=== PATIENT | male | born 1935 | race Caucasian/White ===

== ENCOUNTER → 2016-08-02 | Day surgery (SDC) | payer BC ==
[2016-07-25 10:44] VITALS: Ht 162.6 cm; Wt 127.3 kg
[~2016-08-02] VITALS: Ht 162.6 cm; Wt 127.3 kg
[~2016-08-02] MED LIST: ABIR1TAB PO; ATOR-24 PO; DSWCR15 TOP; FLM4 PO; HYDR25TA4 PO; IOPAMIDOL INJ 61% 15 ML VIAL ONE; LIDOCAINE HCL 1% MPF 5 ML VIAL ONE; NIAC500T7 PO; OMEG12006 PO; SODIUM CHLORIDE 0.9% INJ 10 ML VIAL ONE; VENL150C56 PO
--- NOTE | 2016-08-02 13:35 | Discharge Instructions ---
Discharge Instructions Visit Reason for Visit: Lumbar Spinal Stenosis Discharge Discharge Diagnosis / Problem: stenosis with leg pain Discharge Goals Goal(s): Decrease discomfort, Improve function Anesthesia . Post Anesthesia Instructions: If you have had General Anesthesia or IV Sedation: * Do not drive today. * Resume driving when surgeon permits. * Do not make important decisions or sign legal documents today. * Call surgeon for: 1. Temperature elevations greater than 101 degrees F. 2. Uncontrollable pain. 3. Excessive bleeding. 4. Persistent nausea and vomiting. 5. Medication intolerance (nausea, vomiting or rash). * For nausea and vomiting use only clear liquids such as: tea, soda, bouillon until nausea subsides, then gradually increase diet as tolerated. * If you have any concerns or questions, call your surgeon's office. If physician is unavailable and it is an emergency, call 911 or go to the nearest emergency room. . Diet Recommendations Recommended Home Diet: resume previous diet Procedures Procedures Performed: Lumbar Epidural Steroid Injejection. Pending Studies Studies pending at discharge: no Medical Emergencies . Who to Call and When: Medical Emergencies: If at any time you feel your situation is an emergency, please call 911 immediately. . Non-Emergent Contact Non-Emergency issues call your: Specialist . . "Provider Documentation" section prepared by Franki Haines.
[2016-08-02 13:44] VITALS: BP 148/87; PULSE 92; TEMP 37.2; O2SAT 95
--- NOTE | 2016-08-02 13:47 | OPERATIVE REPORT ---
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 POSTOPERATIVE DIAGNOSIS: Same. PROCEDURE: Right paramedian L5-S1 intralaminar epidural steroid injection under fluoroscopic guidance. INDICATIONS FOR PROCEDURE: The patient is an 81-year-old white male who presents today for an epidural injection given a 5-year history of low back pain with neurogenic claudication, it has impacted his function and he presents today for improvement in both function and pain. PHYSICAL EXAMINATION: Pleasant male seated comfortably in no apparent distress. He has normal lower extremity strength and sensation. Negative seated straight leg raises, some chronic venous stasis changes in his legs in the lower extremities bilaterally. CONSENT: Verbal and written consent was obtained from the patient. Risks and benefits were reviewed. Risks include but are not limited to epidural abscess, epidural hematoma, allergic reaction and dural puncture. The patient wishes to proceed. DESCRIPTION OF PROCEDURE: The patient was taken back to the special procedures room of the [facility] where he was maintained in a prone position. Backside was cleansed with Betadine x3 and a dry sterile dressing was applied. Fluoroscope was used to identify the L5-S1 intralaminar space. Overlying skin on the right side was anesthetized with 4 mL of lidocaine 1% with a 25-gauge 1.5-inch needle. A 22-gauge Tuohy needle was then directed into the intralaminar space. It was advanced under lateral fluoroscopic guidance and loss of resistance was noted at a depth of 11 cm. Isovue-300 contrast 1 mL was injected in which demonstrated epidural uptake pattern with good spread caudally. He then underwent injection after negative aspiration of 40 mg of Depo-Medrol and 4 mL of preservative free sodium chloride. Injection was well tolerated and reproduced a familiar transient radicular sensation down the leg. DISPOSITION: 1. The patient is taken out into the discharge recovery area where he will be discharged home once discharge criteria have been met. 2. Follow up in the [facility] office in 2-4 weeks. I attest to the content of the Intraoperative Record and any orders documented therein. Any exceptio ns are noted below.
== END | disposition home or self-care (01) ==
LOC: X.SURG 12:34
PROVIDERS: ATTEND Physical Medicine & Rehabilitation
DX: M48.06 Spinal stenosis, lumbar region (principal); M19.90 Unspecified osteoarthritis, unspecified site; C61 Malignant neoplasm of prostate; E78.5 Hyperlipidemia, unspecified; F41.9 Anxiety disorder, unspecified; J44.9 Chronic obstructive pulmonary disease, unspecified; F32.9 Major depressive disorder, single episode, unspecified; K21.9 Gastro-esophageal reflux disease without esophagitis; I10 Essential (primary) hypertension; E55.9 Vitamin D deficiency, unspecified; Z96.659 Presence of unspecified artificial knee joint; Z98.890 Other specified postprocedural states

== ENCOUNTER → 2016-09-13 | Day surgery (SDC) | payer BC ==
[2016-09-03 10:26] VITALS: Ht 162.6 cm; Wt 127.3 kg
[~2016-09-13] VITALS: Ht 162.6 cm; Wt 127.3 kg
[~2016-09-13] MED LIST changes: -IOPAMIDOL INJ 61% 15 ML VIAL ONE; -LIDOCAINE HCL 1% MPF 5 ML VIAL ONE; -SODIUM CHLORIDE 0.9% INJ 10 ML VIAL ONE
== END | disposition home or self-care (01) ==
LOC: C.PAT 11:32 → EDSTATUS 15:00
PROVIDERS: ATTEND Physical Medicine & Rehabilitation

== ENCOUNTER 2017-08-09 13:37 | Inpatient (IN) | payer BC, OTHER ==
[~2017-08-09] VITALS: Ht 167.6 cm; Wt 114.6 kg
[~2017-08-09 13:37] MED LIST changes: -OMEG12006 PO
[2017-08-09] MEDS ORDERED: ACETAMINOPHEN 500 MG TAB PO STA (13:57)
[2017-08-09] MEDS ORDERED: SODIUM CHLORIDE 0.9% 1000ML 1,000 ML IV ONE (13:57)
--- NOTE | 2017-08-09 14:08 | EMERGENCY ROOM VISIT NOTE ---
History Report prepared by Fitz: Tisha Dueñas Under the Supervision of: Dr. Ted Zelaya D.O. First contact with patient: 13:43 Chief Complaint: FEVER Stated Complaint: FEVER, NAUSEA/VOMITING,HTN History of Present Illness The patient is a 82 year old male who presents to the Emergency Room with complaints of a persistent fever that began earlier today. The patient states a history of prostate cancer, noting he was being seen by his oncologist when they noticed a fever of 103 degrees Fahrenheit. The patient is currently not in chemotherapy, he notes he receives hormone therapy. He notes he has been vomiting fluids, noting he has been unable to eat in weeks. The patient states he has been coughing and nauseous, since last night. He notes he has been having diarrhea for a few weeks. He denies any urinary symptoms, chest pain, or leg swelling. The patient notes he was given one bag of fluid prior to arrival. He states he has cellulitis in his legs. Source of History: patient Onset: today Position: other (global) Quality: other (fever) Timing: other (persistent) Associated Symptoms: + cough, + nausea, + vomiting, + diarrhea, No chest pain, No urinary symptoms Review of Systems See HPI for pertinent positives & negatives. A total of 10 systems reviewed and were otherwise negative. 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 Social History Smoking Status: Never Smoker Alcohol Use: none Drug Use: none Marital Status: Current/Historical Medications Scheduled Abiraterone Acetate (Zytiga), 4 TAB PO QAM Atorvastatin (Lipitor), 40 MG PO QPM Hydrochlorothiazide (Hctz), 25 MG PO QAM Niacinamide (Niacin), 500 MG PO QAM Tamsulosin HCl (Tamsulosin HCl), 1 CAP PO DAILY Venlafaxine Hcl (Effexor Extended Rel), 150 MG PO QAM Miscellaneous Medications Acetaminophen (Tylenol), 325 MG PO Allergies Coded Allergies: Diphtheria Toxoid (Verified Allergy, Intermediate, SWELLING,BLISTERS, REDNESS,HIVES FROM ADACEL, 1/12/18) Pertussis Vaccine (Verified Allergy, Intermediate, SWELLING,HIVES,REDNESS, BLISTERS FROM ADACEL, 08/09/17) Tetanus Toxoid (Verified Allergy, Intermediate, SWELLING,BLISTERS,REDNESS, HIVES FROM ADACEL, 08/09/17) Physical Exam Vital Signs Date Time Temp Pulse Resp B/P (MAP) Pulse Ox O2 Delivery O2 Flow Rate FiO2 08/09/17 15:34 39.2 105 20 179/87 94 Room Air 08/09/17 14:16 95 Room Air 08/09/17 13:58 109 08/09/17 13:41 39.4 106 22 173/81 95 Room Air Physical Exam GENERAL: Patient is awake, alert, and in no acute distress. Patient is resting comfortably and showing no signs of anxiety EYES: The conjunctivae are clear. The pupils are round and reactive. EARS, NOSE, MOUTH AND THROAT: The nose is without any evidence of any deformity. Mucous membranes are moist tongue is midline NECK: The neck is nontender and supple. RESPIRATORY: Lung sounds diminished throughout, no tachypnea or conversational dyspnea. CARDIOVASCULAR: Regular rate and rhythm noted, systolic murmur appreciated. GASTROINTESTINAL: Abdomen is mildly distended but soft, no guarding or rigidity. PELVIS: The Pelvis is stable. No tenderness to palpation is noted. BACK: No midline tenderness or or step-off noted range of motion in flexion extension as well as rotation no signs of muscle spasm noted MUSCULOSKELETAL/EXTREMITIES: There is no evidence of gross deformity full range of motion is noted in the hips and shoulders SKIN: Stasis dermatitis noted bilaterally, pedal edema bilaterally. NEUROLOGIC: Patient is awake alert and oriented x3 strength is symmetric patellar reflexes are 2+ bilaterally Medical Decision & Procedures ER Provider Diagnostic Interpretation: Radiology results as stated below per my review and radiologist interpretation: ABD/PELVIS NO IV OR ORAL CONT CT DOSE: 1537.81 mGy.cm HISTORY: Nausea. Vomiting. vomiting, fever TECHNIQUE: Multiaxial CT images of the abdomen and pelvis were performed without contrast. A dose lowering technique was utilized adhering to the principles of ALARA. COMPARISON STUDY: 04/26/2016 FINDINGS: Interval development of by lateral basilar pleural effusions. Mild superimposed bibasilar dependent atelectasis. Several small gallstones. Configuration of liver spleen and pancreas are unremarkable. Left renal cyst unchanged. No evidence renal hydronephrosis. The adrenal glands are symmetric. Bowel pattern is considered nonobstructive throughout. No significant abdominal or pelvic adenopathy. Inguinal regions are unremarkable. Interval development of several mesenteric and perirectal nodes measuring up to 1.4 cm. No evidence for bowel obstruction collection or mass. Slight infiltrative change of the perirectal and presacral fascial planes unchanged in the prior study. Findings of sclerotic bony metastatic changes as discussed previously are stable. IMPRESSION: 1. Interval development of bibasilar pleural effusions with atelectatic and/or infiltrative change at the left and to a lesser extent right base. 2. Evaluation of the abdomen and pelvis is otherwise stable compared to the prior exam with one additional Node measuring 1.4 cm. 3. No evidence for abscess or collection. No bowel obstructive change. The above report was generated using voice recognition software. It may contain grammatical, syntax or spelling errors. Electronically signed by: Lex Hewitt M.D. 08/09/2017 3:15 PM Dictated Date/Time: 08/09/2017 3:10 PM CHEST ONE VIEW PORTABLE CLINICAL HISTORY: Sepsis FEVER, NAUSEA VOMITING. HYPERTENSION. COMPARISON STUDY: 10/09/2013 FINDINGS: The heart is enlarged. There is mild pulmonary vascular congestion. There is no lobar consolidation. There is a suboptimal inspiration with bronchovascular crowding at the lung bases. Small pleural effusions are suspected IMPRESSION: Cardiomegaly and mild pulmonary vascular congestion. Suspected small pleural effusions. Increased basal markings are likely hypoventilatory basis Electronically signed by: Lazarus Murry M.D. 08/09/2017 2:20 PM Dictated Date/Time: 08/09/2017 2:19 PM Laboratory Results Test 08/09/17 13:00 08/09/17 13:57 08/09/17 14:11 08/09/17 14:42 Erythrocyte Sedimentation Rate 26 mm/hr (0-14) Prothrombin Time 12.4 SECONDS (9.0-12.0) Prothromb Time International Ratio 1.2 (0.9-1.1) Activated Partial Thromboplast Time 29.7 SECONDS (21.0-31.0) Partial Thromboplastin Ratio 1.1 Phosphorus Level 1.9 mg/dl (2.5-4.9) Magnesium Level 1.9 mg/dl (1.8-2.4) Total Creatine Kinase 66 U/L (39-308) Creatine Kinase MB < 0.5 ng/ml (0.5-3.6) Troponin I 0.027 ng/ml (0-0.045) C-Reactive Protein 0.77 mg/dl (0-0.29) Pro-B-Type Natriuretic Peptide 3714 pg/ml (0-1800) Creatine Kinase MB Ratio (0-3.0) Influenza Type A Antigen Neg for Influ A (NEG) Influenza Type B Antigen Neg for Influ B (NEG) Bedside Lactic Acid Venous 1.31 mmol/L (0.90-1.70) Test 08/09/17 15:29 Urine Color YELLOW Urine Appearance CLEAR (CLEAR) Urine pH 8.0 (4.5-7.5) Urine Specific [place] 1.011 (1.000-1.030) Urine Protein NEG (NEG) Urine Glucose (UA) NEG (NEG) Urine Ketones NEG (NEG) Urine Occult Blood NEG (NEG) Urine Nitrite NEG (NEG) Urine Bilirubin NEG (NEG) Urine Urobilinogen NEG (NEG) Urine Leukocyte Esterase NEG (NEG) Urine WBC (Auto) 0 /hpf (0-5) Urine RBC (Auto) 0-4 /hpf (0-4) Urine Hyaline Casts (Auto) 0 /lpf (0-5) Urine Epithelial Cells (Auto) 0-5 /lpf (0-5) Urine Bacteria (Auto) NEG (NEG) Laboratory results per my review. Medications Administered Medications (Trade) Dose Ordered Sig/Jyoti Route Start Time Stop Time Status Last Admin Dose Admin Sodium Chloride 1,000 ml @ 999 mls/hr Q1H1M ONCE IV 08/09/17 13:57 08/09/17 14:57 DC 08/09/17 13:57 999 MLS/HR Acetaminophen (Tylenol Tab) 1,000 mg NOW STAT PO 08/09/17 13:57 08/09/17 14:00 DC 08/09/17 14:32 1,000 MG Levofloxacin (Levaquin / D5W) 750 mg NOW ONCE IV 08/09/17 16:00 08/09/17 16:01 DC 08/09/17 15:53 750 MG ECG Indication: other (fever) Rate (beats per minute): 108 Rhythm: sinus tachycardia Findings: RBBB, no ectopy Change: no significant change (10/28/2008) ED Course 1351: The patient was evaluated in room B2. A complete history and physical examination were performed. 1357: Ordered Tylenol Tab 1000mg PO and Sodium Chloride 1000ml @ 999mls/hr IV. 1544: I reevaluated the patient, who was resting comfortably. 1600: Ordered Levaquin 750mg IV. 1606: I discussed the patient's case with JONATHON Dial. The patient will be evaluated for further management. Medical Decision Prior records/ancillary studies reviewed. Triage Nursing notes reviewed. The patient's history was concerning for fever. Differential diagnosis: Etiologies such as viral syndrome, otitis, pharyngitis, pneumonia, influenza, meningitis, urinary tract infection, sepsis, bacteremia, as well as others were entertained. The patient is an 82-year-old male who presented to the emergency department from the cancer clinic for an evaluation of fever. The patient came directly from his primary oncologist office. His oncologist called at a time to let us know that the patient was coming because he was very concerned about how ill the patient appeared and was concerned he may be an early sepsis. The patient had a very significant fever. The patient was treated with IV fluids and IV antibiotic in emergency department. He was reevaluated multiple times. At this time he may have a sign of pneumonia noted on radiographic studies. He also appears to have a heart murmur. The patient had blood culture sent. I discussed the patient's laboratory and radiographic studies with him. I also discussed his case with the on-call [facility] hospitalist. They have agreed to evaluate the patient in the emergency department for further management and disposition. Medication Reconcilliation Current Medication List: was personally reviewed by me Consults Time Called: 1606 Consulting Physician: JONATHON Lopez Returned Call: 1606 I discussed the patient's case with JONATHON Lopez. The patient will be evaluated for further management. Impression Primary Impression: Fever Additional Impressions: Pneumonia Vomiting Murmur Scribe Attestation The scribe's documentation has been prepared under my direction and personally reviewed by me in its entirety. I confirm that the note above accurately reflects all work, treatment, procedures, and medical decision making performed by me. Departure Information Dispostion Being Evaluated By Hospitalist Referrals Sylvia Sherwood CRNP (PCP) Forms HOME CARE DOCUMENTATION FORM, IMPORTANT VISIT INFORMATION Patient Instructions [facility] Problem Qualifiers Primary Impression: Fever Fever type: unspecified Qualified Codes: R50.9 - Fever, unspecified Additional Impressions: Pneumonia Pneumonia type: due to unspecified organism Laterality: unspecified laterality Lung location: unspecified part of lung Qualified Codes: J18.9 - Pneumonia, unspecified organism Vomiting Vomiting type: unspecified Vomiting Intractability: non-intractable Nausea presence: with nausea Qualified Codes: R11.2 - Nausea with vomiting, unspecified
--- NOTE | 2017-08-09 14:22 | DIAGNOSTIC IMAGING REPORT ---
CHEST ONE VIEW PORTABLE CLINICAL HISTORY: Sepsis FEVER, NAUSEA VOMITING. HYPERTENSION. COMPARISON STUDY: 10/09/2013 FINDINGS: The heart is enlarged. There is mild pulmonary vascular congestion. There is no lobar consolidation. There is a suboptimal inspiration with bronchovascular crowding at the lung bases. Small pleural effusions are suspected IMPRESSION: Cardiomegaly and mild pulmonary vascular congestion. Suspected small pleural effusions. Increased basal markings are likely hypoventilatory basis Electronically signed by: Lazarus Murry M.D. 08/09/2017 2:20 PM Dictated Date/Time: 08/09/2017 2:19 PM
[2017-08-09] MEDS ORDERED: ACET-1311 PO (14:31)
[2017-08-09 14:38] LABS: INR 1.2 (0.9-1.1); PTT PATIENT 29.7 SECONDS (21.0-31.0)
[2017-08-09 14:45] LABS: CKMB < 0.5 ng/ml (0.5-3.6); LIPASE 88 U/L (73-393); PHOSPHORUS 1.9 mg/dl (2.5-4.9)
[2017-08-09 15:02] LABS: INFLUENZA B ANTIGEN Neg for Influ B (NEG)
--- NOTE | 2017-08-09 15:17 | DIAGNOSTIC IMAGING REPORT ---
ABD/PELVIS NO IV OR ORAL CONT CT DOSE: 1537.81 mGy.cm HISTORY: Nausea. Vomiting. vomiting, fever TECHNIQUE: Multiaxial CT images of the abdomen and pelvis were performed without contrast. A dose lowering technique was utilized adhering to the principles of ALARA. COMPARISON STUDY: 04/26/2016 FINDINGS: Interval development of by lateral basilar pleural effusions. Mild superimposed bibasilar dependent atelectasis. Several small gallstones. Configuration of liver spleen and pancreas are unremarkable. Left renal cyst unchanged. No evidence renal hydronephrosis. The adrenal glands are symmetric. Bowel pattern is considered nonobstructive throughout. No significant abdominal or pelvic adenopathy. Inguinal regions are unremarkable. Interval development of several mesenteric and perirectal nodes measuring up to 1.4 cm. No evidence for bowel obstruction collection or mass. Slight infiltrative change of the perirectal and presacral fascial planes unchanged in the prior study. Findings of sclerotic bony metastatic changes as discussed previously are stable. IMPRESSION: 1. Interval development of bibasilar pleural effusions with atelectatic and/or infiltrative change at the left and to a lesser extent right base. 2. Evaluation of the abdomen and pelvis is otherwise stable compared to the prior exam with one additional Node measuring 1.4 cm. 3. No evidence for abscess or collection. No bowel obstructive change. The above report was generated using voice recognition software. It may contain grammatical, syntax or spelling errors. Electronically signed by: Lex Hewitt M.D. 08/09/2017 3:15 PM Dictated Date/Time: 08/09/2017 3:10 PM
[2017-08-09] MEDS ORDERED: LEVAQUIN 750MG / 150ML D5W IV ONE (16:00)
[2017-08-09] MEDS ORDERED: MAGNESIUM HYDROXIDE SUSP 30 ML UDC PO PRN (17:30)
[2017-08-09] MEDS ORDERED: SODIUM CHLORIDE 0.9% 1000ML 1,000 ML IV SCH (17:30)
[2017-08-09] MEDS ORDERED: ACETAMINOPHEN 325 MG TAB PO PRN (17:30)
--- NOTE | 2017-08-09 17:38 | History and Physical ---
History & Physical Date & Time of Service: Aug 09, 2017 at 17:23 Chief Complaint: Fever, Nausea/Vomiting,Htn Primary Care Physician: Alexander Tate M.D. History of Present Illness Source: patient, spouse 82 y/o M c/o n/v. Pt's states that pt has been having intermittent nausea over the last month or so. It has gotten worse over the last week and yesterday he started having emesis with inability to tolerate PO. He has not eaten much over the last week due to the nausea. He would have a few bites but then feel unwell and stop eating. Since yesterday he has been unable to tolerate even water, although he thinks he kept his meds down this AM. Pt was seen by Dr. Blakely today and noted to have a fever, although pt does not register this himself. Labs were drawn there, he was given IVF, and he was sent to the ED for further evaluation. Pt states he coughs on occasion, but nothing worse than this or concerning to him. Denies SOB or chest pain. No abd pain or diarrhea. Pt states his LE are generally with mild swelling and red, their appearance today is not new. He has no LE pain. Pt gets 3 different injections one time per month, which he has done for some time. They are confident that one is B12 and one is lupron, but are not sure of the third. He just had these on Saturday. Pt is still a bit nauseated, but does feel slightly improved s/p IVF and abx. He is requesting applesauce. Past Medical/Surgical History Medical Problems: (1) Anemia Status: Chronic (2) HX-PROSTATIC MALIGNANCY Permanent Comment: Adenocarcinoma the prostate Bishop score of 9 pretreatment PSA 5.2 Biopsy stage T2c N0M0 Status post hormonal suppression and external beam therapy to the pelvis completed 07/17/2005 received 7920 cGy Rising PSA with biochemical failure Initiation of hormone suppression Bone metastasis documenting June 2014 Monthly Xgeva and on Zytiga Development of low back pain and finding of lesion at L5 Status post completion of radiation therapy to the lumbar spine 10/05/2016 received 3000 cGy Status: Chronic (3) HYPERTENSION NOS Status: Chronic (4) HYPERTROPHY (BENIGN) OF PROSTATE W/O URINARY OBST & OTH LUTS Status: Resolved (5) KNEE JOINT REPLACEMENT STATUS Status: Resolved (6) PURE HYPERCHOLESTEROLEM Status: Chronic (7) UMBILICAL HERNIA Status: Resolved (8) UNILAT INGUINAL HERNIA Status: Resolved Family History Family history was reviewed; no changes noted. Social History Smoking Status: Former Smoker (quit x50 yrs) Alcohol Use: none Drug Use: none Marital Status: Housing status: lives with family Immunizations History of Influenza Vaccine: Yes Influenza Vaccine Date: Mar 29, 2014 History of Tetanus Vaccine?: Yes History of Pneumococcal: Yes Pneumococcal Date: May 29, 2009 History of Hepatitis B Vaccine: No Multi-Drug Resistant Organisms History of MDRO: No Allergies Coded Allergies: Diphtheria Toxoid (Verified Allergy, Intermediate, SWELLING,BLISTERS, REDNESS,HIVES FROM ADACEL, 08/09/17) Pertussis Vaccine (Verified Allergy, Intermediate, SWELLING,HIVES,REDNESS, BLISTERS FROM ADACEL, 08/09/17) Tetanus Toxoid (Verified Allergy, Intermediate, SWELLING,BLISTERS,REDNESS, HIVES FROM ADACEL, 08/09/17) Home Medications Scheduled Abiraterone Acetate (Zytiga), 4 TAB PO QAM Atorvastatin (Lipitor), 40 MG PO QPM Hydrochlorothiazide (Hctz), 25 MG PO QAM Niacinamide (Niacin), 500 MG PO QAM Tamsulosin HCl (Tamsulosin HCl), 1 CAP PO DAILY Venlafaxine Hcl (Effexor Extended Rel), 150 MG PO QAM Miscellaneous Medications Acetaminophen (Tylenol), 325 MG PO Review of Systems Pertinent positives and negatives reviewed in HPI--all others negative Physical Exam Vital Signs Date Time Temp Pulse Resp B/P (MAP) Pulse Ox O2 Delivery O2 Flow Rate FiO2 08/09/17 15:34 39.2 105 20 179/87 94 Room Air 08/09/17 14:16 95 Room Air 08/09/17 13:58 109 08/09/17 13:41 39.4 106 22 173/81 95 Room Air General Appearance: WD/WN, no apparent distress (but ill appearing) Head: normocephalic, atraumatic Eyes: normal inspection, EOMI, sclerae normal Respiratory/Chest: normal breath sounds, no respiratory distress Cardiovascular: regular rate, rhythm, normal peripheral pulses Abdomen/GI: non tender, soft Extremities/Musculoskelatal: no calf tenderness, + pedal edema (chronic appearing) Neurologic/Psych: alert, normal mood/affect, oriented x 3 Skin: warm/dry, + pertinent finding (redness that appears chronic) Diagnostics Laboratory Results Results Past 24 Hours Test 08/09/17 13:00 08/09/17 13:57 08/09/17 14:11 08/09/17 14:42 Range/Units Erythrocyte Sedimentation Rate 26 0-14 mm/hr Prothrombin Time 12.4 9.0-12.0 SECONDS Prothromb Time International Ratio 1.2 0.9-1.1 Activated Partial Thromboplast Time 29.7 21.0-31.0 SECONDS Partial Thromboplastin Ratio 1.1 Phosphorus Level 1.9 2.5-4.9 mg/dl Magnesium Level 1.9 1.8-2.4 mg/dl Total Creatine Kinase 66 39-308 U/L Creatine Kinase MB < 0.5 0.5-3.6 ng/ml Creatine Kinase MB Ratio 0-3.0 Troponin I 0.027 0-0.045 ng/ml C-Reactive Protein 0.77 0-0.29 mg/dl Pro-B-Type Natriuretic Peptide 3714 0-1800 pg/ml Lipase 88 73-393 U/L Influenza Type A Antigen Neg for Influ A NEG Influenza Type B Antigen Neg for Influ B NEG Bedside Lactic Acid Venous 1.31 0.90-1.70 mmol/L Test 08/09/17 15:29 Range/Units Urine Color YELLOW Urine Appearance CLEAR CLEAR Urine pH 8.0 4.5-7.5 Urine Specific [place] 1.011 1.000-1.030 Urine Protein NEG NEG Urine Glucose (UA) NEG NEG Urine Ketones NEG NEG Urine Occult Blood NEG NEG Urine Nitrite NEG NEG Urine Bilirubin NEG NEG Urine Urobilinogen NEG NEG Urine Leukocyte Esterase NEG NEG Urine WBC (Auto) 0 0-5 /hpf Urine RBC (Auto) 0-4 0-4 /hpf Urine Hyaline Casts (Auto) 0 0-5 /lpf Urine Epithelial Cells (Auto) 0-5 0-5 /lpf Urine Bacteria (Auto) NEG NEG Diagnostic Radiology CXR with small pleural effusions CTAP: Possible L base PNA Impression Assessment and Plan 82 y/o M who was admitted on 08/09 for n/v, fever. Fever, n/v: Likely related to L base PNA vs medication reaction WBC WNL in an immunosuppressed pt, febrile CXR and CT AP noted UA neg Flu neg Blood cx drawn at outpt visit, pending Started on levaquin in the ED, will continue IVF with clears HTN: stable BP, continue home meds HLD: continue home meds Prostate ca: monthly medications Other: Full code. Pt states he would not want prolonged life support. is present and understands this. Clears with IVF SCDs for DVT proph VTE Prophylaxis VTE Risk Assessment Done? Y/N: Yes Risk Level: Low
[2017-08-09 19:15] VITALS: BP 134/77; PULSE 85; TEMP 38.5; O2SAT 96
[2017-08-09] MEDS: POTASSIUM CHLR 10 MEQ / WTR 10 MEQ in PREMIXED WATER 100 ML IV SCH ×4 (19:43→23:23)
[2017-08-09 20:00] VITALS: BP 134/77; PULSE 85; TEMP 38.5; O2SAT 96; Ht 167.6 cm; Wt 114.6 kg
[2017-08-09] MEDS: ATORVASTATIN 40 MG TAB PO SCH (21:13)
[2017-08-09 23:58] VITALS: BP 139/76; PULSE 98; TEMP 37.2; O2SAT 96
[2017-08-10] VITALS (9 sets, daily range): BP systolic 134–183; BP diastolic 72–98; PULSE 79–99; TEMP 36.7–38.8; O2SAT 93–99
[2017-08-10] MEDS: ONDANSETRON INJ 2 MG/ML 2 ML VIAL IV PRN ×2 (01:23→07:49)
[2017-08-10] MEDS ORDERED: NURSING VERBAL MED ORDER ONE ×2 (06:00→22:00)
[2017-08-10 07:41] LABS: CALCIUM 7.7 mg/dl (8.5-10.1); CREATININE 0.67 mg/dl (0.60-1.40); POTASSIUM 2.5 mmol/L (3.5-5.1)
[2017-08-10] MEDS: TAMSULOSIN HCL 0.4 MG CAP PO SCH (07:49)
[2017-08-10] MEDS: VENLAFAXINE HCL XR 150 MG CAPXR PO SCH (07:49)
[2017-08-10] MEDS: NIACIN 500 MG TAB IMMEDIATE RELEASE PO SCH (07:50)
[2017-08-10] MEDS ORDERED: HYDROCHLOROTHIAZIDE 25 MG TAB PO SCH (08:00)
[2017-08-10] MEDS ORDERED: ABIRATERONE ACETATE PO SCH (08:00)
[2017-08-10 09:00] LABS: HEMATOCRIT 32.8 % (42-52); HEMOGLOBIN 11.6 g/dL (14.0-18.0); MEAN CELL VOLUME 86.1 fL (80-100); MEAN CORPUSCULAR HEMOGLOBIN 30.4 pg (25-34); MEAN CORPUSCULAR HGB CONC 35.4 g/dl (32-36); MEAN PLATELET VOLUME 9.3 fL (7.4-10.4); PLATELET COUNT 120 K/uL (130-400); RED CELL DISTRIBUTION WIDTH CV 14.2 % (11.5-14.5); RED CELL DISTRIBUTION WIDTH SD 44.1 fL (36.4-46.3); WHITE BLOOD COUNT 5.35 K/uL (4.8-10.8)
[2017-08-10] MEDS ORDERED: POTASSIUM CHLORIDE 20 MEQ TABCR PO STA (09:05)
[2017-08-10] MEDS: POTASSIUM CHLORIDE INJ 40 MEQ in SODIUM CHLORIDE 0.9% 1000ML 1,000 ML IV SCH ×2 (09:53→22:25)
--- NOTE | 2017-08-10 12:34 | DIAGNOSTIC IMAGING REPORT ---
ABDOMEN COMPLETE (US) HISTORY: Nausea. Vomiting. Nausea vomiting for 2 weeks. COMPARISON: 06/14/2009 CT 08/09/2017 FINDINGS: Pancreas: The pancreas demonstrates a normal echotexture. Liver: Mild fatty infiltration Gallbladder: Several very small gallstones. No pericholecystic fluid. CBD: 4 mm Kidneys: No evidence for hydronephrosis. 3 mm mid pole left renal cyst. Spleen: 12 cm maximum dimension Aorta: Poorly seen due to overlying bowel content IVC: Patent. IMPRESSION: Several very small gallstones. Normal caliber bile ducts. Mild fatty infiltration of the liver. The above report was generated using voice recognition software. It may contain grammatical, syntax or spelling errors. Electronically signed by: Lex Hewitt M.D. 08/10/2017 12:33 PM Dictated Date/Time: 08/10/2017 12:30 PM
[2017-08-10 13:39] LABS: ALBUMIN 3.1 gm/dl (3.4-5.0)
[2017-08-10 13:51] LABS: TOTAL PROTEIN 6.8 gm/dl (6.4-8.2)
[2017-08-10] MEDS: POTASSIUM CHLORIDE 20 MEQ TABCR PO SCH ×2 (14:42→19:23)
--- NOTE | 2017-08-10 16:07 | Progress Note ---
Subjective Date of Service: Aug 10, 2017. Subjective Pt evaluation today including: conversation w/ patient, physical exam, lab review, review of studies, review of inpatient medication list Pain: no pain today PO Intake: tolerating diet Voiding: no voiding problems reviewed recent history, he has been feeling ill for 2-3 weeks, poor appetite, nauseated for past 24 hours he had a lot of vomiting which was new for him no issues moving bowels friend visiting in the room, he confirms, he has not been eating like he typically does continues to have fevers in past 24 hours no leukocytosis K is improving slowly, up to 3.0 from 2.5 symptoms only occur after eating, suggests possible gall bladder etiology? discussed getting further work up Problem List Medical Problems: (1) Fever Status: Acute (2) Murmur Status: Acute (3) Pneumonia Status: Acute (4) Vomiting Status: Acute Review of Systems Constitutional: + weakness, + fatigue Abdomen: + pain, + nausea, + problem reported (early satiety) All Other Systems: Reviewed and Negative Medications Current Inpatient Medications Medications (Trade) Dose Ordered Sig/Jyoti Route Start Time Stop Time Status Last Admin Dose Admin Acetaminophen (Tylenol Tab) 650 mg Q4H PRN PO 08/09/17 17:30 09/08/17 17:29 08/10/17 07:49 650 MG Magnesium Hydroxide (Milk Of Magnesia Susp) 30 ml Q6H PRN PO 08/09/17 17:30 09/08/17 17:29 Ondansetron HCl (Zofran Inj) 4 mg Q6H PRN IV 08/09/17 17:30 09/08/17 17:29 08/10/17 07:49 4 MG Atorvastatin Calcium (Lipitor Tab) 40 mg QPM PO 08/09/17 21:00 09/08/17 20:59 08/09/17 21:13 40 MG Tamsulosin HCl (Flomax Cap) 0.4 mg DAILY PO 08/10/17 08:00 09/09/17 08:59 08/10/17 07:49 0.4 MG Venlafaxine HCl (effeXOR EXTENDED REL CAP) 150 mg QAM PO 08/10/17 08:00 09/09/17 08:59 08/10/17 07:49 150 MG Niacin (Niacin Tab) 500 mg QAM PO 08/10/17 08:00 09/09/17 08:59 08/10/17 07:50 500 MG Levofloxacin 750 mg/Prmx 150 ml @ 100 mls/hr Q48H IV 08/11/17 16:00 08/15/17 15:59 Miscellaneous Information (Order Awaiting Action) 1 ea QS N/A 08/10/17 00:00 09/09/17 00:00 Potassium Chloride 40 meq/ Sodium Chloride 1,020 ml @ 80 mls/hr [id number] IV 08/10/17 09:30 09/09/17 09:29 08/10/17 09:53 80 MLS/HR Potassium Chloride (Klor-Con Tab) 20 meq TID PO 08/10/17 14:00 09/09/17 13:59 08/10/17 14:42 20 MEQ Objective Vital Signs Date Time Temp Pulse Resp B/P (MAP) Pulse Ox O2 Delivery O2 Flow Rate FiO2 08/10/17 15:09 36.9 79 20 151/83 (105) 98 Room Air 08/10/17 08:30 97 Room Air 08/10/17 07:35 38.8 93 20 161/88 (112) 97 Room Air 08/10/17 03:56 36.8 97 22 152/76 (101) 97 Room Air 08/09/17 23:58 37.2 98 18 139/76 (97) 96 Room Air 08/09/17 23:25 Room Air 08/09/17 20:00 38.5 85 18 134/77 96 Room Air 08/09/17 19:15 38.5 85 18 134/77 (96) 96 Room Air 08/09/17 18:00 38.2 99 20 110/61 95 Room Air Physical Exam General Appearance: no apparent distress, + obese Eyes: normal inspection, EOMI, sclerae normal ENT: normal ENT inspection, hearing grossly normal, pharynx normal Neck: supple, no adenopathy, no JVD, trachea midline Respiratory/Chest: chest non-tender, lungs clear, no respiratory distress, no accessory muscle use, + decreased breath sounds (bases) Cardiovascular: regular rate, rhythm, no edema, no gallop, no JVD, no murmur Abdomen: normal bowel sounds, non tender, soft, no organomegaly Extremities: normal range of motion, non-tender, normal inspection, no pedal edema, no calf tenderness, pelvis stable Neurologic/Psychiatric: 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, no motor/sensory deficits, alert, normal mood/affect, oriented x 3 Skin: normal color, warm/dry, no rash Laboratory Results Last 24 Hours Test 08/10/17 06:31 08/10/17 08:24 08/10/17 13:06 Sodium Level 137 mmol/L Potassium Level 2.5 mmol/L 3.0 mmol/L Chloride Level 103 mmol/L Carbon Dioxide Level 26 mmol/L Anion Gap 8.0 mmol/L Blood Urea Nitrogen 10 mg/dl Creatinine 0.67 mg/dl Est Creatinine Clear Calc Drug Dose 98.6 ml/min Estimated GFR () 103.0 Estimated GFR (Non- 88.9 BUN/Creatinine Ratio 15.3 Random Glucose 91 mg/dl Calcium Level 7.7 mg/dl White Blood Count 5.35 K/uL Red Blood Count 3.81 M/uL Hemoglobin 11.6 g/dL Hematocrit 32.8 % Mean Corpuscular Volume 86.1 fL Mean Corpuscular Hemoglobin 30.4 pg Mean Corpuscular Hemoglobin Concent 35.4 g/dl RDW Standard Deviation 44.1 fL RDW Coefficient of Variation 14.2 % Platelet Count 120 K/uL Mean Platelet Volume 9.3 fL Total Bilirubin 1.4 mg/dl Direct Bilirubin 0.3 mg/dl Aspartate Amino Transf (AST/SGOT) 20 U/L Alanine Aminotransferase (ALT/SGPT) 16 U/L Alkaline Phosphatase 63 U/L Total Protein 6.8 gm/dl Albumin 3.1 gm/dl Lipase 54 U/L Assessment and Plan 82 y/o M who was admitted on 08/09 for n/v, fever, findings of possible Left lower lobe pneumonia on CT Left lower lobe pneumonia: perhaps due to frequent vomiting, aspiration? will continue with Levaquin, normal WBC, monitor to see if he has fever no hypoxia Nausea, vomiting, abdominal pain (epigastric) perhaps gall bladder etiology? GB US shows some small stones, no signs of cholecystitis lipase normal and LFT normal nausea controlled with Zofran may need to get a HIDA on Saturday Hypokalemia: improving on K in fluids and PO replacement, continue for now HTN: stable BP, continue home meds HLD: continue home meds Prostate ca: monthly medications Other: Full code. Pt states he would not want prolonged life support. is present and understands this. Clears with IVF SCDs for DVT proph
[2017-08-10] MEDS: ATORVASTATIN 40 MG TAB PO SCH (19:23)
[2017-08-10] MEDS ORDERED: NURSING VERBAL MED ORDER STA (21:04)
[2017-08-10] MEDS ORDERED: CALCIUM CARBONATE 500 MG CHEWABLE PO STA (21:25)
[2017-08-10] MEDS ORDERED: CALCIUM CARBONATE 500 MG CHEWABLE PO PRN (22:30)
[2017-08-10] MEDS ORDERED: DILTIAZEM HCL 30 MG TAB PO SCH (23:00)
[2017-08-11 03:53] VITALS: BP 157/98; PULSE 90; TEMP 36.4; O2SAT 100
[2017-08-11] MEDS: DILTIAZEM HCL 30 MG TAB PO SCH ×3 (05:58→17:48)
[2017-08-11 07:29] VITALS: BP 152/89; PULSE 91; TEMP 36.4; O2SAT 99
[2017-08-11] MEDS: VENLAFAXINE HCL XR 150 MG CAPXR PO SCH (07:42)
[2017-08-11] MEDS: POTASSIUM CHLORIDE 20 MEQ TABCR PO SCH ×3 (07:42→19:46)
[2017-08-11] MEDS: NIACIN 500 MG TAB IMMEDIATE RELEASE PO SCH (07:43)
[2017-08-11] MEDS: TAMSULOSIN HCL 0.4 MG CAP PO SCH (07:43)
[2017-08-11 07:45] VITALS: O2SAT 99
[2017-08-11 08:45] LABS: HEMATOCRIT 34.3 % (42-52); HEMOGLOBIN 12.3 g/dL (14.0-18.0); MEAN CELL VOLUME 87.7 fL (80-100); MEAN CORPUSCULAR HEMOGLOBIN 31.5 pg (25-34); MEAN CORPUSCULAR HGB CONC 35.9 g/dl (32-36); PLATELET COUNT 114 K/uL (130-400); RED CELL DISTRIBUTION WIDTH CV 14.3 % (11.5-14.5); RED CELL DISTRIBUTION WIDTH SD 46.1 fL (36.4-46.3); WHITE BLOOD COUNT 3.46 K/uL (4.8-10.8)
[2017-08-11 09:17] LABS: CALCIUM 7.6 mg/dl (8.5-10.1); CREATININE 0.61 mg/dl (0.60-1.40); POTASSIUM 3.1 mmol/L (3.5-5.1)
[2017-08-11 12:30] VITALS: BP 147/85; PULSE 85
[2017-08-11 14:48] VITALS: BP 131/72; PULSE 78; TEMP 36.8; O2SAT 99
--- NOTE | 2017-08-11 15:22 | Progress Note ---
Subjective Date of Service: Aug 11, 2017. Subjective Pt evaluation today including: conversation w/ patient, physical exam, lab review, review of inpatient medication list Pain: no epigastric pain PO Intake: tolerating clears Voiding: no voiding problems patient drinking clears, no nausea or vomiting at all will advance diet to low fiber labs reviewed, potassium rising slowly, continue oral replacement discussed getting HIDA scan tomorrow to assess 2-3 weeks of poor appetite, nausea, vomiting BP markedly elevated overnight, resident started on Cardizem 30mg q6, pressures better today Problem List Medical Problems: (1) Fever Status: Acute (2) Murmur Status: Acute (3) Pneumonia Status: Acute (4) Vomiting Status: Acute Review of Systems All Other Systems: Reviewed and Negative Medications Current Inpatient Medications Medications (Trade) Dose Ordered Sig/Jyoti Route Start Time Stop Time Status Last Admin Dose Admin Acetaminophen (Tylenol Tab) 650 mg Q4H PRN PO 08/09/17 17:30 09/08/17 17:29 08/10/17 07:49 650 MG Magnesium Hydroxide (Milk Of Magnesia Susp) 30 ml Q6H PRN PO 08/09/17 17:30 09/08/17 17:29 Ondansetron HCl (Zofran Inj) 4 mg Q6H PRN IV 08/09/17 17:30 09/08/17 17:29 08/10/17 07:49 4 MG Atorvastatin Calcium (Lipitor Tab) 40 mg QPM PO 08/09/17 21:00 09/08/17 20:59 08/10/17 19:23 40 MG Tamsulosin HCl (Flomax Cap) 0.4 mg DAILY PO 08/10/17 08:00 09/09/17 08:59 08/11/17 07:43 0.4 MG Venlafaxine HCl (effeXOR EXTENDED REL CAP) 150 mg QAM PO 08/10/17 08:00 09/09/17 08:59 08/11/17 07:42 150 MG Niacin (Niacin Tab) 500 mg QAM PO 08/10/17 08:00 09/09/17 08:59 08/11/17 07:43 500 MG Levofloxacin 750 mg/Prmx 150 ml @ 100 mls/hr Q48H IV 08/11/17 16:00 08/15/17 15:59 Miscellaneous Information (Order Awaiting Action) 1 ea QS N/A 08/10/17 00:00 09/09/17 00:00 Potassium Chloride (Klor-Con Tab) 20 meq TID PO 08/10/17 14:00 09/09/17 13:59 08/11/17 13:39 20 MEQ Calcium Carbonate (Tums Chew Tab) 500 mg Q6H PRN PO 08/10/17 22:30 09/09/17 22:29 Diltiazem HCl (Cardizem Tab) 30 mg Q6H PO 08/11/17 06:00 08/11/17 23:00 08/11/17 11:31 30 MG Amlodipine Besylate (Norvasc Tab) 5 mg QAM PO 08/12/17 08:00 09/11/17 07:59 Objective Vital Signs Date Time Temp Pulse Resp B/P (MAP) Pulse Ox O2 Delivery O2 Flow Rate FiO2 08/11/17 14:48 36.8 78 20 131/72 (91) 99 Room Air 08/11/17 12:30 85 20 147/85 (105) 08/11/17 07:45 99 Room Air 08/11/17 07:29 36.4 91 18 152/89 (110) 99 BiPAP 08/11/17 03:53 36.4 90 20 157/98 (117) 100 CPAP 08/11/17 00:00 CPAP 08/10/17 23:32 36.7 90 19 134/82 (99) 99 CPAP 08/10/17 22:24 182/74 (110) 08/10/17 20:41 175/97 (123) 08/10/17 19:40 183/98 (126) 08/10/17 19:13 36.9 99 20 181/72 (108) 93 Room Air 08/10/17 16:10 Room Air Physical Exam General Appearance: no apparent distress, + obese Eyes: normal inspection, EOMI, sclerae normal ENT: normal ENT inspection, hearing grossly normal, pharynx normal Neck: supple, no adenopathy, no JVD, trachea midline Respiratory/Chest: chest non-tender, lungs clear, normal breath sounds, no respiratory distress, no accessory muscle use Cardiovascular: regular rate, rhythm, no edema, no gallop, no JVD, no murmur Abdomen: normal bowel sounds, non tender, soft, no organomegaly Extremities: normal range of motion, non-tender, normal inspection, no pedal edema, no calf tenderness, pelvis stable 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, no motor/sensory deficits, alert, normal mood/affect, oriented x 3 Skin: normal color, warm/dry, no rash Laboratory Results Last 24 Hours Test 08/11/17 08:12 White Blood Count 3.46 K/uL Red Blood Count 3.91 M/uL Hemoglobin 12.3 g/dL Hematocrit 34.3 % Mean Corpuscular Volume 87.7 fL Mean Corpuscular Hemoglobin 31.5 pg Mean Corpuscular Hemoglobin Concent 35.9 g/dl RDW Standard Deviation 46.1 fL RDW Coefficient of Variation 14.3 % Platelet Count 114 K/uL Mean Platelet Volume 9.0 fL Sodium Level 140 mmol/L Potassium Level 3.1 mmol/L Chloride Level 107 mmol/L Carbon Dioxide Level 24 mmol/L Anion Gap 9.0 mmol/L Blood Urea Nitrogen 8 mg/dl Creatinine 0.61 mg/dl Est Creatinine Clear Calc Drug Dose 109.0 ml/min Estimated GFR () 107.0 Estimated GFR (Non- 92.4 BUN/Creatinine Ratio 13.4 Random Glucose 108 mg/dl Calcium Level 7.6 mg/dl Assessment and Plan 82 y/o M who was admitted on 08/09 for n/v, fever, findings of possible Left lower lobe pneumonia on CT Left lower lobe pneumonia: perhaps due to frequent vomiting, aspiration? will continue with Levaquin, normal WBC, afebrile, no hypoxia would d/c on Levaquin to complete 7 days total Nausea, vomiting, abdominal pain (epigastric) perhaps gall bladder etiology? 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 Pt states he would not want prolonged life support. is present and understands this. advance diet to low fiber today to see how he tolerates HIDA with EF imaging tomorrow to look for chronic cholecystitis, dyskinesis ( given 2-3 weeks of symptoms) if HIDA normal and tolerating diet, would d/c on Levaquin for pneumonia, Norvasc for HTN
[2017-08-11] MEDS ORDERED: LEVOFLOXACIN / D5W 750 MG in PREMIXED IN D5W 150 ML IV SCH (16:00)
[2017-08-11] MEDS: ATORVASTATIN 40 MG TAB PO SCH (19:46)
[2017-08-11 23:43] VITALS: BP 146/78; PULSE 81; TEMP 36.8; O2SAT 98
[2017-08-12 04:35] VITALS: BP 162/93; PULSE 99; TEMP 35.8; O2SAT 97
[2017-08-12 07:24] VITALS: BP 171/93; PULSE 97; TEMP 36.8; O2SAT 99
[2017-08-12] MEDS: VENLAFAXINE HCL XR 150 MG CAPXR PO SCH (07:43)
[2017-08-12] MEDS: NIACIN 500 MG TAB IMMEDIATE RELEASE PO SCH (07:43)
[2017-08-12] MEDS: AMLODIPINE BESYLATE 5 MG TAB PO SCH (07:43)
[2017-08-12] MEDS: POTASSIUM CHLORIDE 20 MEQ TABCR PO SCH ×3 (07:43→20:27)
[2017-08-12] MEDS: TAMSULOSIN HCL 0.4 MG CAP PO SCH (07:43)
[2017-08-12 08:00] VITALS: O2SAT 99
[2017-08-12 10:13] LABS: CALCIUM 7.5 mg/dl (8.5-10.1); CREATININE 0.67 mg/dl (0.60-1.40); POTASSIUM 3.8 mmol/L (3.5-5.1)
[2017-08-12 15:50] VITALS: BP 147/85; PULSE 91; TEMP 36.7; O2SAT 100
[2017-08-12 16:00] VITALS: O2SAT 100
--- NOTE | 2017-08-12 16:46 | Oncology Consultation ---
Oncology/Heme Consultation Date of Consultation: Aug 12, 2017. Attending Physician: Chandana Ashton D.O. Reason for Consultation: History of metastatic prostate course History of Present Illness Mr. 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 He received neoadjuvant Zoladex in February 2005 prior to radiation therapy and then received external beam radiation therapy that was completed in June 2005. 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 A CT scan of the chest abdomen pelvis in June 2014 showed a new bone lesion at T11. Bone scan in June 2014 showed minimal diffuse uptake in the right fifth rib that was nonspecific. In October [address] scan which show a slight increase in size of a 1 cm sclerotic focus within the T11 pedicle. This was worrisome for progression. He was restarted on Casodex then in October 2014. By Mar 2015 in addition there was modest increase in size of 3 sclerotic bony lesions consistent with bony metastatic disease along with mildly enlarged retroperitoneal lymph nodes. A 2015 a bone scan showed no significant change from her preceding study. July 2015 notes reflect that sclerotic bone lesions are felt to be slightly more enlarged. He has been on Zytiga/ Prednisone. He started this in May 2015. He is now admitted with 1 month of decreased appetite and most recently nausea and vomiting. Low grade temperatures were noted on admission. He does admit to some abdominal pain particularly in the right flank or right upper quadrant. Small gallstones were seen on scan Past Medical/Surgical History Medical Problems: (1) Fever Status: Acute (2) Murmur Status: Acute (3) Pneumonia Status: Acute (4) Vomiting Status: Acute Family History Patient reports no known family medical history. Social History Smoking Status: Never Smoker Alcohol Use: none Drug Use: none Marital Status: Allergies Coded Allergies: Diphtheria Toxoid (Verified Allergy, Intermediate, SWELLING,BLISTERS, REDNESS,HIVES FROM [facility], 08/09/17) Pertussis Vaccine (Verified Allergy, Intermediate, SWELLING,HIVES,REDNESS, BLISTERS FROM [facility], 08/09/17) Tetanus Toxoid (Verified Allergy, Intermediate, SWELLING,BLISTERS,REDNESS, HIVES FROM [facility], 08/09/17) Home Medications Scheduled Abiraterone Acetate (Zytiga), 4 TAB PO QAM Atorvastatin (Lipitor), 40 MG PO QPM Hydrochlorothiazide (Hctz), 25 MG PO QAM Niacinamide (Niacin), 500 MG PO QAM Tamsulosin HCl (Tamsulosin HCl), 1 CAP PO DAILY Venlafaxine Hcl (Effexor Extended Rel), 150 MG PO QAM Miscellaneous Medications Acetaminophen (Tylenol), 325 MG PO Current Inpatient Medications Current Inpatient Medications Medications (Trade) Dose Ordered Sig/Jyoti Route Start Time Stop Time Status Last Admin Dose Admin Acetaminophen (Tylenol Tab) 650 mg Q4H PRN PO 08/09/17 17:30 09/08/17 17:29 08/10/17 07:49 650 MG Magnesium Hydroxide (Milk Of Magnesia Susp) 30 ml Q6H PRN PO 08/09/17 17:30 09/08/17 17:29 Ondansetron HCl (Zofran Inj) 4 mg Q6H PRN IV 08/09/17 17:30 09/08/17 17:29 08/10/17 07:49 4 MG Atorvastatin Calcium (Lipitor Tab) 40 mg QPM PO 08/09/17 21:00 09/08/17 20:59 08/11/17 19:46 40 MG Tamsulosin HCl (Flomax Cap) 0.4 mg DAILY PO 08/10/17 08:00 09/09/17 08:59 08/12/17 07:43 0.4 MG Venlafaxine HCl (effeXOR EXTENDED REL CAP) 150 mg QAM PO 08/10/17 08:00 09/09/17 08:59 08/12/17 07:43 150 MG Niacin (Niacin Tab) 500 mg QAM PO 08/10/17 08:00 09/09/17 08:59 08/12/17 07:43 500 MG Miscellaneous Information (Order Awaiting Action) 1 ea QS N/A 08/10/17 00:00 09/09/17 00:00 Potassium Chloride (Klor-Con Tab) 20 meq TID PO 08/10/17 14:00 09/09/17 13:59 08/12/17 14:30 20 MEQ Calcium Carbonate (Tums Chew Tab) 500 mg Q6H PRN PO 08/10/17 22:30 09/09/17 22:29 Amlodipine Besylate (Norvasc Tab) 5 mg QAM PO 08/12/17 08:00 09/11/17 07:59 08/12/17 07:43 5 MG Levofloxacin 750 mg/Prmx 150 ml @ 100 mls/hr Q24H IV 08/12/17 16:00 08/15/17 15:59 Review of Systems Constitutional: Negative for weight loss, night sweats, or shaking chills. Posible fever at home but not recorded at home. Eyes: Negative for event change of vision ENT: Negative for epistaxis, nasal discharge, sore throat, or deafness Cardiovascular: Negative for chest pain, palpitations, dizziness, diaphoresis Respiratory: Negative for new shortness of breath,hemoptysis, or purulent cough Gastrointestinal: Negative for diarrhea, hematemesis, melena, positive for nausea vomiting no hematemesis Integumentary (skin): Negative for rash or jaundice discoloration Genitourinary: Negative for urinary frequency, hematuria, or dysuria Neurological: Negative for weakness, seizure activity, headache, or dizziness Lymphatic/Hematologic: Negative for petechiae, bleeding or new adenopathy Musculoskeletal: Negative for new joint or back pain. He has had low back pain for quite some time but it seems to be unchanged. Allergic/Immunologic: Negative for unusual rash or pruritis. Physical Exam Date Time Temp Pulse Resp B/P (MAP) Pulse Ox O2 Delivery O2 Flow Rate FiO2 08/12/17 15:50 36.7 91 18 147/85 (105) 100 Room Air 08/12/17 08:00 99 Room Air 08/12/17 07:24 36.8 97 18 171/93 (119) 99 BiPAP 08/12/17 04:35 35.8 99 18 162/93 (116) 97 CPAP 08/12/17 00:00 Room Air CPAP 08/11/17 23:43 36.8 81 19 146/78 (100) 98 CPAP Constitutional: vitals are stable. Alert pleasant obese gentleman Eyes: Eyes are RAFFY EOMI without conjuctival erythema or icterus. ENT: External examination was negative for masses. Neck: Negative for masses or palpable thyromegaly Respiratory: Lung sounds were generally clear bilaterally Cardiovascular: Heart was RRR without significant murmur, gallops aoe rubs Gastrointestinal: No palpable hepatic or splenomegaly. The abdomen was soft with normal bowel sounds. He does admit to some right upper quadrant pain with percussion and palpation Lymphatic system: there was no palpable peripheral lymphadenopathy Musculoskeletal System: The musculoskeletal system seemed concordant with age. Skin: The skin was negative for jaundice. Neurologic exam: The exam was negative for any focal findings. Deep tendon reflexes were equal and symmetrical. Psychiatric exam: Was essentially negative with normal mood and effect. Extremities: Positive for stasis changes distally Laboratory Results Last 24 Hours Test 08/12/17 09:18 Sodium Level 140 mmol/L Potassium Level 3.8 mmol/L Chloride Level 109 mmol/L Carbon Dioxide Level 23 mmol/L Anion Gap 8.0 mmol/L Blood Urea Nitrogen 9 mg/dl Creatinine 0.67 mg/dl Est Creatinine Clear Calc Drug Dose 99.7 ml/min Estimated GFR () 103.0 Estimated GFR (Non- 88.9 BUN/Creatinine Ratio 13.2 Random Glucose 112 mg/dl Calcium Level 7.5 mg/dl Magnesium Level 2.1 mg/dl Assessment & Plan Metastatic prostate carcinoma. His blood counts appear stable. His PT and PTT at baseline are normal. Will check a fibrinogen. Platelet counts tend to be slightly low but above 100,000. PSA will be updated. Otherwise would continue on Zytiga and prednisone. I suspect the complaints that he has are unrelated to the underlying metastatic prostate carcinoma. I understand an upper endoscopy was planned. Planned HIDA scan could not be done due to the patient' s inability to lie flat (according to patient)
[2017-08-12] MEDS: LEVOFLOXACIN / D5W 750 MG in PREMIXED IN D5W 150 ML IV SCH (17:07)
[2017-08-12 19:10] VITALS: BP 140/83; PULSE 90; TEMP 36.4; O2SAT 100
--- NOTE | 2017-08-12 19:49 | GASTROINTESTINAL CONSULTATION ---
DATE OF CONSULTATION: 08/12/2017 REASON FOR EVALUATION: Nausea and vomiting and right upper quadrant pain. HISTORY OF PRESENT ILLNESS: The patient is an 82-year-old male with prostate cancer who had a recurrence locally with rising PSA as well as L5 bone met. He is currently receiving injection hormone therapy. He had been on fentanyl patches up till 2 weeks ago and these were stopped the past month. The patient is reporting nausea, especially after eating with the smell of certain foods making him more nauseated. He has also had some episodes of vomiting. He presents to the hospital with fever and bilateral pleural effusions. GI consultation has been requested. Ultrasound and CAT scan show multiple small gallstones in the gallbladder. PAST MEDICAL HISTORY: Remarkable for prostate cancer, biopsy stage T2c, treated with hormonal therapy and external beam therapy since 2004 with recurrence in L5 bone met. He has hypertension, knee replacements, umbilical hernia repair and inguinal hernia repair. MEDICATIONS: Per list. ALLERGIES: DIPHTHERIA VACCINATION, PERTUSSIS VACCINATION AND TETANUS VACCINATION. FAMILY HISTORY: Noncontributory. SOCIAL HISTORY: The patient is . He is a former smoker, quit 50 years ago. REVIEW OF SYSTEMS: Positive for frequent urination and nausea. PHYSICAL EXAMINATION: GENERAL: The patient is overweight, sitting in a bedside chair. VITAL SIGNS: Blood pressure is 180/87, pulse 105, O2 saturation on room air is 94%, and temperature is 36.4. ABDOMEN: Shows an inguinal and umbilical scar. There is some tenderness in the right upper quadrant and internal organs are not palpable. LUNGS: Showed decreased breath sounds. HEART: Showed a normal S1 and S2, regular rate and rhythm. IMPRESSION AND PLAN: The patient has right upper quadrant pain, several gallstones, nausea and vomiting. The patient was scheduled for a biliary scan today but was unable to tolerate lying still and underneath scanner for the designated period of time the procedure had to be aborted. At this time, it is possible that his gallbladder is causing his symptoms. He has been off fentanyl patch for 2 weeks and he continues to be symptomatic. At this point, I would recommend an esophagogastroduodenoscopy tomorrow with Dr. Tracy to make sure there is no upper gastrointestinal pathology. If this is negative, then I would recommend surgical consultation regarding his gallbladder.
[2017-08-12] MEDS: ATORVASTATIN 40 MG TAB PO SCH (20:28)
[2017-08-13] VITALS: BP 146/83; PULSE 93; TEMP 36.6; O2SAT 98
[2017-08-13 04:00] VITALS: BP 144/86; PULSE 93; TEMP 36.5; O2SAT 97
[2017-08-13 07:34] VITALS: BP 171/90; PULSE 97; TEMP 36.5; O2SAT 98
--- NOTE | 2017-08-13 07:52 | Progress Note ---
Subjective Date of Service: Aug 12, 2017. Subjective Pt evaluation today including: conversation w/ patient Patient seen at Aug 12. 82 yo male with metastatic prostate cancer. Patient continues to complain of abd. pain on the right upper quadrant and right lower quadrant. Pain is dull, occurs after eating, about 15-20 minutes later. Patient reports that he has difficulty lying flat as it makes it hard for him to breath. Patient also reports having worse pain when lying flat. Problem List Medical Problems: (1) Fever Status: Acute (2) Murmur Status: Acute (3) Pneumonia Status: Acute (4) Vomiting Status: Acute Review of Systems Constitutional: No fever, No chills Respiratory: No cough, No sputum Cardiac: No chest pain, No orthopnea Abdomen: No pain, No nausea Musculoskeletal: + joint pain Neurologic: No memory loss, No paralysis Heme: No abnormal bleeding/bruising Endo: No fatigue Skin: No rash, No itch All Other Systems: Reviewed and Negative Medications Current Inpatient Medications Medications (Trade) Dose Ordered Sig/Jyoti Route Start Time Stop Time Status Last Admin Dose Admin Acetaminophen (Tylenol Tab) 650 mg Q4H PRN PO 08/09/17 17:30 09/08/17 17:29 08/10/17 07:49 650 MG Magnesium Hydroxide (Milk Of Magnesia Susp) 30 ml Q6H PRN PO 08/09/17 17:30 09/08/17 17:29 Ondansetron HCl (Zofran Inj) 4 mg Q6H PRN IV 08/09/17 17:30 09/08/17 17:29 08/10/17 07:49 4 MG Atorvastatin Calcium (Lipitor Tab) 40 mg QPM PO 08/09/17 21:00 09/08/17 20:59 08/12/17 20:28 40 MG Tamsulosin HCl (Flomax Cap) 0.4 mg DAILY PO 08/10/17 08:00 09/09/17 08:59 08/12/17 07:43 0.4 MG Venlafaxine HCl (effeXOR EXTENDED REL CAP) 150 mg QAM PO 08/10/17 08:00 09/09/17 08:59 08/12/17 07:43 150 MG Niacin (Niacin Tab) 500 mg QAM PO 08/10/17 08:00 09/09/17 08:59 08/12/17 07:43 500 MG Miscellaneous Information (Order Awaiting Action) 1 ea QS N/A 08/10/17 00:00 09/09/17 00:00 Potassium Chloride (Klor-Con Tab) 20 meq TID PO 08/10/17 14:00 09/09/17 13:59 08/12/17 20:27 20 MEQ Calcium Carbonate (Tums Chew Tab) 500 mg Q6H PRN PO 08/10/17 22:30 09/09/17 22:29 Amlodipine Besylate (Norvasc Tab) 5 mg QAM PO 08/12/17 08:00 09/11/17 07:59 08/12/17 07:43 5 MG Levofloxacin 750 mg/Prmx 150 ml @ 100 mls/hr Q24H IV 08/12/17 16:00 08/15/17 15:59 08/12/17 17:07 100 MLS/HR Objective Vital Signs Date Time Temp Pulse Resp B/P (MAP) Pulse Ox O2 Delivery O2 Flow Rate FiO2 08/13/17 07:34 36.5 97 20 171/90 (117) 98 Room Air 08/13/17 04:00 36.5 93 18 144/86 (105) 97 CPAP 08/13/17 00:00 CPAP 08/13/17 00:00 36.6 93 18 146/83 (104) 98 CPAP 08/12/17 19:10 36.4 90 18 140/83 (102) 100 Room Air 08/12/17 16:00 100 Room Air 08/12/17 15:50 36.7 91 18 147/85 (105) 100 Room Air 08/12/17 08:00 99 Room Air Physical Exam Comments: General Appearance: no apparent distress, + obese Eyes: normal inspection, EOMI, sclerae normal ENT: normal ENT inspection, hearing grossly normal, pharynx normal Neck: supple, no adenopathy, no JVD, trachea midline Respiratory/Chest: chest non-tender, lungs clear, normal breath sounds, no respiratory distress, no accessory muscle use Cardiovascular: regular rate, rhythm, no edema, no gallop, no JVD, no murmur Abdomen: globus, obese, tender to RUQ and RLQ. No guarding. 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158 ng/ml Assessment and Plan 82 y/o M who was admitted on 08/09 for n/v, fever, findings of possible Left lower lobe pneumonia on CT Left lower lobe pneumonia: will continue with levaquin RUQ abd. pain -Appetite remains poor. Unsure of cause. Patient did not tolerate HIDA scan GB US shows some small stones, no signs of cholecystitis Concerned over worseing mets, however CT scan (w/o contrast) did not show any mets that may be causing the pain lipase normal and LFT normal no nausea for 48 hours, not needing Zofran Will consult with GI for possible upper endoscopy. Hypokalemia: improved. will monitor. HTN: elevated, added amlodipine. may consider added STEFANIE tomorrow if remains elevated. HLD: continue home meds Prostate ca: monthly medications Other: Full code. Pt states he would not want prolonged life support. is present and understands this. advance diet to low fiber today to see how he tolerates Continued [facility] stay due to: other Discharge planning: uncertain
--- NOTE | 2017-08-13 09:36 | Clinical Documentation Query ---
3 CLINICAL DOCUMENTATION QUERY Possible aspiration pneumonia has been documented by previous physicians. This documentation has fallen of the record and likely will not be coded unless continued. In your clinical opinion is this patient being managed for: ( x ) Possible aspiration pneumonia in setting of recent N/V. ( ) Not Agree Please clarify and document your clinical opinion in the progress notes and discharge summary. Terms such as "probable", "suspected", "likely", "questionable", "possible", or "still to be ruled out" are acceptable. IF IN AGREEMENT, YOU MUST DOCUMENT ABOVE DIAGNOSTIC STATEMENT IN DAILY PROGRESS NOTES AND DISCHARGE SUMMARY. This document is not part of the patient's record. Thank You, Michael Waller, RN [phone]
[2017-08-13 12:02] VITALS: BP 177/93; PULSE 91; TEMP 36.5; O2SAT 100
--- NOTE | 2017-08-13 12:14 | Progress Note ---
Subjective Date of Service: Aug 13, 2017. Subjective Pt evaluation today including: conversation w/ patient, physical exam Patient has no new complaints today. Patient reports that his abdominal pain has improved since he has been NPO. Will monitor. Problem List Medical Problems: (1) Fever Status: Acute (2) Murmur Status: Acute (3) Pneumonia Status: Acute (4) Vomiting Status: Acute Review of Systems Constitutional: No fever, No chills ENT: No hearing loss, No unusual epistaxis Respiratory: No cough, No sputum Cardiac: No chest pain, No orthopnea Abdomen: + pain, + nausea Musculoskeletal: No joint pain Neurologic: No memory loss, No paralysis Psychiatric: No depression symptoms Heme: No see HPI, No abnormal bleeding/bruising Endo: No fatigue Skin: No rash, No itch All Other Systems: Reviewed and Negative Medications Current Inpatient Medications Medications (Trade) Dose Ordered Sig/Jyoti Route Start Time Stop Time Status Last Admin Dose Admin Acetaminophen (Tylenol Tab) 650 mg Q4H PRN PO 08/09/17 17:30 09/08/17 17:29 08/10/17 07:49 650 MG Magnesium Hydroxide (Milk Of Magnesia Susp) 30 ml Q6H PRN PO 08/09/17 17:30 09/08/17 17:29 Ondansetron HCl (Zofran Inj) 4 mg Q6H PRN IV 08/09/17 17:30 09/08/17 17:29 08/10/17 07:49 4 MG Atorvastatin Calcium (Lipitor Tab) 40 mg QPM PO 08/09/17 21:00 09/08/17 20:59 08/13/17 20:52 40 MG Tamsulosin HCl (Flomax Cap) 0.4 mg DAILY PO 08/10/17 08:00 09/09/17 08:59 08/14/17 07:49 0.4 MG Venlafaxine HCl (effeXOR EXTENDED REL CAP) 150 mg QAM PO 08/10/17 08:00 09/09/17 08:59 08/14/17 07:48 150 MG Niacin (Niacin Tab) 500 mg QAM PO 08/10/17 08:00 09/09/17 08:59 08/14/17 07:49 500 MG Calcium Carbonate (Tums Chew Tab) 500 mg Q6H PRN PO 08/10/17 22:30 09/09/17 22:29 Amlodipine Besylate (Norvasc Tab) 5 mg QAM PO 08/12/17 08:00 09/11/17 07:59 08/14/17 07:49 5 MG Levofloxacin 750 mg/Prmx 150 ml @ 100 mls/hr Q24H IV 08/12/17 16:00 08/15/17 15:59 08/13/17 16:59 100 MLS/HR Abiraterone Acetate (Zytiga) 1,000 mg DAILYBB PO 08/14/17 06:30 09/13/17 06:29 08/14/17 05:30 1,000 MG Objective Vital Signs Date Time Temp Pulse Resp B/P (MAP) Pulse Ox O2 Delivery O2 Flow Rate FiO2 08/13/17 12:02 36.5 91 18 177/93 (121) 100 Room Air 08/13/17 08:00 CPAP 08/13/17 07:34 36.5 97 20 171/90 (117) 98 Room Air 08/13/17 04:00 36.5 93 18 144/86 (105) 97 CPAP 08/13/17 00:00 CPAP 08/13/17 00:00 36.6 93 18 146/83 (104) 98 CPAP 08/12/17 19:10 36.4 90 18 140/83 (102) 100 Room Air 08/12/17 16:00 100 Room Air 08/12/17 15:50 36.7 91 18 147/85 (105) 100 Room Air Physical Exam Comments: General Appearance: no apparent distress, + obese Eyes: normal inspection, EOMI, sclerae normal ENT: normal ENT inspection, hearing grossly normal, pharynx normal Neck: supple, no adenopathy, no JVD, trachea midline Respiratory/Chest: chest non-tender, lungs clear, normal breath sounds, no respiratory distress, no accessory muscle use Cardiovascular: regular rate, rhythm, no edema, no gallop, no JVD, no murmur Abdomen: globus, obese, tender to RUQ and RLQ. No guarding. 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 will continue with levaquin as patient is improving. RUQ abd. pain pain improved while being npo Awaiting endoscopy Exam is still similar to yesterday -Appetite remains poor. Unsure of cause. Patient did not tolerate HIDA scan GB US shows some small stones, no signs of cholecystitis Concerned over worseing mets, however CT scan (w/o contrast) did not show any mets that may be causing the pain lipase normal and LFT normal no nausea for 48 hours, not needing Zofran Hypokalemia: improved. will monitor. HTN: elevated, added amlodipine. IT HAS MILDLY IMPROVED. WILL HOLD OFF STEFANIE INHIBITOR TODAY. MAY ADD TOMORROW HLD: continue home meds Prostate ca: monthly medications Other: Full code. Pt states he would not want prolonged life support. is present and understands this. advance diet to low fiber today to see how he tolerates Continued [facility] stay due to: other Discharge planning: uncertain
--- NOTE | 2017-08-13 13:00 | History & Physical Bridge Note ---
H&P Re-Evaluation Bridge Note: I have examined the patient, reviewed the History & Physical and in the interval since the performance of the History & Physical I have noted the following changes of clinical significance: No changes noted
[2017-08-13] MEDS ORDERED: LIDOCAINE HCL 2% 2 ML VIAL (20MG/ML) ONE (13:21)
[2017-08-13] MEDS ORDERED: PROPOFOL IV EMULSION 10 MG/ML 20 ML VIAL IV ONE (13:21)
--- NOTE | 2017-08-13 14:00 | Anesthesiology Progress Note ---
Anesthesia Post Op Note Date & Time Aug 13, 2017 at 13:59 Vital Signs Pain Intensity: 0.0 Vital Signs Past 12 Hours Date Time Temp Pulse Resp B/P (MAP) Pulse Ox O2 Delivery O2 Flow Rate FiO2 08/13/17 13:47 98 26 165/90 (115) 94 Room Air 08/13/17 12:46 36.7 99 28 190/91 (124) 99 Room Air 08/13/17 12:02 36.5 91 18 177/93 (121) 100 Room Air 08/13/17 08:00 CPAP 08/13/17 07:34 36.5 97 20 171/90 (117) 98 Room Air 08/13/17 04:00 36.5 93 18 144/86 (105) 97 CPAP Notes Mental Status: alert / awake / arousable, participated in evaluation Pt Amnestic to Procedure: Yes Nausea / Vomiting: adequately controlled Pain: adequately controlled Airway Patency, RR, SpO2: stable & adequate BP & HR: stable & adequate Hydration State: stable & adequate Anesthetic Complications: no major complications apparent
[2017-08-13] MEDS: VENLAFAXINE HCL XR 150 MG CAPXR PO SCH (14:41)
[2017-08-13] MEDS: AMLODIPINE BESYLATE 5 MG TAB PO SCH (14:41)
[2017-08-13] MEDS: TAMSULOSIN HCL 0.4 MG CAP PO SCH (14:41)
[2017-08-13] MEDS: NIACIN 500 MG TAB IMMEDIATE RELEASE PO SCH (14:42)
--- NOTE | 2017-08-13 15:32 | GI REPORT ---
Procedure Date: 08/13/2017 1:26 PM Procedure: Upper GI endoscopy Indications: Abdominal pain in the right upper quadrant, Nausea with vomiting Medicines: Propofol per Anesthesia Complications: No immediate complications. Estimated blood loss: Minimal. Estimated Blood Loss: Estimated blood loss was minimal. Procedure: Pre-Anesthesia Assessment: - Prior to the procedure, a History and Physical was performed, and patient medications and allergies were reviewed. The patient's tolerance of previous anesthesia was also reviewed. The risks and benefits of the procedure and the sedation options and risks were discussed with the patient. All questions were answered, and informed consent was obtained. Prior Anticoagulants: The patient has taken no previous anticoagulant or antiplatelet agents. ASA Grade Assessment: III - A patient with severe systemic disease. After reviewing the risks and benefits, the patient was deemed in satisfactory condition to undergo the procedure. After obtaining informed consent, the endoscope was passed under direct vision. Throughout the procedure, the patient's blood pressure, pulse, and oxygen saturations were monitored continuously. The scope was introduced through the mouth, and advanced to the third part of duodenum. The upper GI endoscopy was accomplished without difficulty. The patient tolerated the procedure well. Findings: The examined esophagus was normal. A 3 cm hiatal hernia was found. The proximal extent of the gastric folds (end of tubular esophagus) was 39 cm from the incisors. The hiatal narrowing was 42 cm from the incisors. The Z-line was 39 cm from the incisors. The entire examined stomach was normal. Retained gastric contents are not identified on this exam. The gastric body and gastric antrum were normal. Biopsies were taken with a cold forceps for histology. Estimated blood loss was minimal. Verification of patient identification for the specimen was done by the physician and outer diameter technician using the patient's name and medical record number. Many non-bleeding cratered and superficial duodenal ulcers with pigmented material were found in the duodenal bulb, in the first portion of the duodenum, in the second portion of the duodenum and in the third portion of the duodenum. The largest lesion was 3 mm in largest dimension. Biopsies were taken with a cold forceps for histology. Estimated blood loss was minimal. Verification of patient identification for the specimen was done by the physician and outer diameter technician using the patient's name and medical record number. The cardia and gastric fundus were normal on retroflexion. Impression: - Normal esophagus. - 3 cm hiatal hernia. - Normal stomach. - Normal gastric body and antrum. Biopsied. - Multiple non-bleeding duodenal ulcers with pigmented material. Biopsied. Recommendation: - Discharge patient to home (ambulatory). - Return patient to hospital styles for ongoing care. - Advance diet as tolerated. - Continue present medications. - No aspirin, ibuprofen, naproxen, or other non-steroidal anti-inflammatory drugs. - Use Prilosec (omeprazole) 40 mg PO BID. - Await pathology results. - Will send path for HSV/CMV in addition to standard histology. -Gastric biopsies for H pylori. -Suspect findings above are a source of patient's RUQ pain and N/V MD Jamil Lau MD 08/13/2017 1:51:54 PM This report has been signed electronically. Note Initiated On: 08/13/2017 1:26 PM I attest to the content of the Intraoperative Record and orders documented therein, exceptions below
[2017-08-13 16:12] VITALS: BP 138/65; PULSE 86; TEMP 36.4; O2SAT 99
[2017-08-13] MEDS: LEVOFLOXACIN / D5W 750 MG in PREMIXED IN D5W 150 ML IV SCH (16:59)
[2017-08-13 19:32] VITALS: BP 146/78; PULSE 89; TEMP 36.7; O2SAT 97
[2017-08-13] MEDS: ATORVASTATIN 40 MG TAB PO SCH (20:52)
[2017-08-14] VITALS: BP 154/82; PULSE 96; TEMP 36.7; O2SAT 95
[2017-08-14 04:00] VITALS: BP 148/72; PULSE 91; TEMP 36.6; O2SAT 97
[2017-08-14] MEDS ORDERED: ABIRATERONE ACETATE 250 MG PO SCH ×2 (06:30→08:00)
[2017-08-14 07:31] VITALS: BP 172/83; PULSE 95; TEMP 36.4; O2SAT 99
[2017-08-14] MEDS: VENLAFAXINE HCL XR 150 MG CAPXR PO SCH (07:48)
[2017-08-14] MEDS: TAMSULOSIN HCL 0.4 MG CAP PO SCH (07:49)
[2017-08-14] MEDS: AMLODIPINE BESYLATE 5 MG TAB PO SCH (07:49)
[2017-08-14] MEDS: NIACIN 500 MG TAB IMMEDIATE RELEASE PO SCH (07:49)
--- NOTE | 2017-08-14 08:01 | Hematology/Oncology Prog Note ---
Hematology/Onc Progress Note Date of Service Aug 14, 2017. Diagnoses metastatic prostate carcinoma Peptic ulcer disease Medications Medications Administered Medications (Trade) Dose Ordered Sig/Jyoti Route Start Time Stop Time Status Last Admin Dose Admin Sodium Chloride 1,000 ml @ 999 mls/hr Q1H1M ONCE IV 08/09/17 13:57 08/09/17 14:57 DC 08/09/17 13:57 999 MLS/HR Acetaminophen (Tylenol Tab) 1,000 mg NOW STAT PO 08/09/17 13:57 08/09/17 14:00 DC 08/09/17 14:32 1,000 MG Levofloxacin (Levaquin / D5W) 750 mg NOW ONCE IV 08/09/17 16:00 08/09/17 16:01 DC 08/09/17 15:53 750 MG Acetaminophen (Tylenol Tab) 650 mg Q4H PRN PO 08/09/17 17:30 09/08/17 17:29 08/10/17 07:49 650 MG Ondansetron HCl (Zofran Inj) 4 mg Q6H PRN IV 08/09/17 17:30 09/08/17 17:29 08/10/17 07:49 4 MG Atorvastatin Calcium (Lipitor Tab) 40 mg QPM PO 08/09/17 21:00 09/08/17 20:59 08/13/17 20:52 40 MG Tamsulosin HCl (Flomax Cap) 0.4 mg DAILY PO 08/10/17 08:00 09/09/17 08:59 08/14/17 07:49 0.4 MG Venlafaxine HCl (effeXOR EXTENDED REL CAP) 150 mg QAM PO 08/10/17 08:00 09/09/17 08:59 08/14/17 07:48 150 MG Niacin (Niacin Tab) 500 mg QAM PO 08/10/17 08:00 09/09/17 08:59 08/14/17 07:49 500 MG Potassium Chloride 10 meq/ Prmx 100 ml @ 100 mls/hr Q1H IV 08/09/17 19:30 08/09/17 23:29 DC 08/09/17 23:23 100 MLS/HR Levofloxacin 750 mg/Prmx 150 ml @ 100 mls/hr Q48H IV 08/11/17 16:00 1/15/18 10:35 DC 08/11/17 15:49 100 MLS/HR Sodium Chloride 1,000 ml @ 80 mls/hr [id number] IV 08/09/17 17:30 08/10/17 09:07 DC 08/09/17 19:35 80 MLS/HR Potassium Chloride 40 meq/ Sodium Chloride 1,020 ml @ 80 mls/hr [id number] IV 08/10/17 09:30 08/11/17 11:25 DC 08/10/17 22:25 80 MLS/HR Potassium Chloride (Klor-Con Tab) 20 meq TID PO 08/10/17 14:00 08/13/17 09:12 DC 08/12/17 20:27 20 MEQ Potassium Chloride (Klor-Con Tab) 20 meq NOW STAT PO 08/10/17 09:05 08/10/17 09:21 DC 08/10/17 09:54 20 MEQ Calcium Carbonate (Tums Chew Tab) 500 mg NOW STAT PO 08/10/17 21:25 08/10/17 21:26 DC 08/10/17 21:38 500 MG Diltiazem HCl (Cardizem Tab) 30 mg Q6H PO 08/11/17 06:00 08/11/17 23:00 DC 08/11/17 17:48 30 MG Diltiazem HCl (Cardizem Tab) 30 mg TODAY@2300 PO 08/10/17 23:00 08/10/17 23:01 DC 08/10/17 23:43 30 MG Amlodipine Besylate (Norvasc Tab) 5 mg QAM PO 08/12/17 08:00 09/11/17 07:59 08/14/17 07:49 5 MG Levofloxacin 750 mg/Prmx 150 ml @ 100 mls/hr Q24H IV 08/12/17 16:00 08/15/17 15:59 08/13/17 16:59 100 MLS/HR Abiraterone Acetate (Zytiga) 1,000 mg DAILYBB PO 08/14/17 06:30 09/13/17 06:29 08/14/17 05:30 1,000 MG Subjective He seems to be doing fairly well. He denies further nausea. EGD yesterday showed GI ulceration Review of Systems: Constitutional: Negative for night sweats, or fever Eyes: Negative for event change of vision ENT: Negative for epistaxis, nasal discharge, sore throat, or deafness Cardiovascular: Negative for chest pain, palpitations, dizziness, diaphoresis Respiratory: Negative for new shortness of breath,hemoptysis, or purulent cough Gastrointestinal: Negative for diarrhea, hematemesis, melena, nausea, vomiting , or dyspepsia Integumentary (skin): Negative for rash or jaundice discoloration Neurological: Negative for weakness, seizure activity, headache, or dizziness Lymphatic/Hematologic: Negative for petechiae, bleeding or new adenopathy Musculoskeletal: Negative for new joint or back pain Allergic/Immunologic: Negative for unusual rash or pruritis. Vital Signs Vital Signs Past 12 Hours Date Time Temp Pulse Resp B/P (MAP) Pulse Ox O2 Delivery O2 Flow Rate FiO2 08/14/17 07:31 36.4 95 20 172/83 (112) 99 08/14/17 04:00 36.6 91 20 148/72 (97) 97 CPAP 08/14/17 01:10 Room Air 08/14/17 00:00 36.7 96 20 154/82 (106) 95 Room Air 08/13/17 20:43 Room Air Physical Exam Constitutional: vitals are stable. Obese pleasant gentleman O2o his ongoing Eyes: Eyes are RAFFY EOMI without conjuctival erythema or icterus. ENT: External examination was negative for masses. Neck: Negative for masses or palpable thyromegaly Respiratory: Lung sounds were generally clear but decreased bilaterally Cardiovascular: Heart was RRR without significant murmur, gallops aoe rubs Gastrointestinal: No palpable hepatic or splenomegaly. The abdomen was soft with normal bowel sounds. Lymphatic system: there was no palpable peripheral lymphadenopathy Musculoskeletal System: The musculoskeletal system seemed concordant with age. Skin: The skin was negative for jaundice. Neurologic exam: The exam was negative for any focal findings. Deep tendon reflexes were equal and symmetrical. Psychiatric exam: Was essentially negative with normal mood and effect. Extremities: Bilateral distal stasis skin change Assessment & Plan Metastatic prostate carcinoma stable on Zytiga PSA 0.15 and stable. Fibrinogen normal. I would asked that he remain on Zytiga and prednisone. The prednisone dose is usually 5 mg twice daily. He will have a follow-up in our clinic. For now we will sign off. Please not hesitate to reconsult if needed
[2017-08-14 10:14] VITALS: BP 140/72; PULSE 78
[2017-08-14 11:59] VITALS: BP 137/71; PULSE 88; TEMP 36.6; O2SAT 100
[2017-08-14] MEDS ORDERED: OMEP40CA41 PO ×2 (15:26→15:48)
--- NOTE | 2017-08-14 15:30 | Discharge Instructions ---
Discharge Instructions Date of Service Aug 14, 2017. Admission Reason for Admission: Pneumonia, Vomiting Discharge Discharge Diagnosis / Problem: Duodenal ulcer/ chemical pneumonitis Discharge Goals Goal(s): Decrease discomfort, Improve function Activity Recommendations Activity Limitations: resume your previous activity . Instructions / Follow-Up Instructions / Follow-Up Followup with PCP in 1 week Follow up with Gastro in 4 weeks Stop Hydrochlorthiazide Take Lisinopril at night Take amlodipine in the morning Omeprazole twice a day when you wake up. Current Hospital Diet Patient's current hospital diet: Low Fiber Diet Discharge Diet Recommended Diet: Regular Diet Procedures Procedures Performed: Esophagogastroduodenoscopy with biopsies, Dr Tracy Pending Studies Studies pending at discharge: no Medical Emergencies . Who to Call and When: Medical Emergencies: If at any time you feel your situation is an emergency, please call 911 immediately. . Non-Emergent Contact Non-Emergency issues call your: Primary Care Provider Call Non-Emergent contact if: you have any medication questions . . "Provider Documentation" section prepared by Broderick Easley. . VTE Core Measure Inpt VTE Proph given/why not?: SCD's
--- NOTE | 2017-08-14 15:31 | Discharge Summary ---
Discharge Summary Date of Service Aug 14, 2017. Discharge Summary Admission Date: Aug 09, 2017 at 17:23 Discharge Date: Aug 14, 2017 Discharge Disposition: Home Principal Diagnosis: Duodenal ulcers Immunizations: Have You Had Influenza Vaccine: Yes Influenza Vaccine Date: Mar 29, 2014 History of Tetanus Vaccine?: Yes History of Pneumococcal: Yes Pneumococcal Date: May 29, 2009 History of Hepatitis B Vaccine: No Procedures: Procedure: Upper GI endoscopy Indications: Abdominal pain in the right upper quadrant, Nausea with vomiting Findings: The examined esophagus was normal. A 3 cm hiatal hernia was found. The proximal extent of the gastric folds (end of tubular esophagus) was 39 cm from the incisors. The hiatal narrowing was 42 cm from the incisors. The Z-line was 39 cm from the incisors. The entire examined stomach was normal. Retained gastric contents are not identified on this exam. The gastric body and gastric antrum were normal. Biopsies were taken with a cold forceps for histology. Estimated blood loss was minimal. Verification of patient identification for the specimen was done by the physician and fire technician using the patient's name and medical record number. Many non-bleeding cratered and superficial duodenal ulcers with pigmented material were found in the duodenal bulb, in the first portion of the duodenum, in the second portion of the duodenum and in the third portion of the duodenum. The largest lesion was 3 mm in largest dimension. Biopsies were taken with a cold forceps for histology. Estimated blood loss was minimal. Verification of patient identification for the specimen was done by the physician and fire technician using the patient's name and medical record number. The cardia and gastric fundus were normal on retroflexion. Impression: - Normal esophagus. - 3 cm hiatal hernia. - Normal stomach. - Normal gastric body and antrum. Biopsied. - Multiple non-bleeding duodenal ulcers with pigmented material. Biopsied. Recommendation: - Discharge patient to home (ambulatory). - Return patient to hospital styles for ongoing care. - Advance diet as tolerated. - Continue present medications. - No aspirin, ibuprofen, naproxen, or other non-steroidal anti-inflammatory drugs. - Use Prilosec (omeprazole) 40 mg PO BID. - Await pathology results. - Will send path for HSV/CMV in addition to standard histology. -Gastric biopsies for H pylori. -Suspect findings above are a source of patient's RUQ pain and N/V Jamil Tracy MD Medication Reconciliation New Medications: Amlodipine Besylate (Norvasc) 5 Mg Tab 1 TAB PO DAILY for 90 Days, #90 TAB 3 Refills Lisinopril (Lisinopril) 20 Mg Tab 1 TAB PO DAILY for 7 Days, #7 TAB Lisinopril (Lisinopril) 20 Mg Tab 1 TAB PO PM for 90 Days, #90 TAB 3 Refills Omeprazole (Prilosec) 40 Mg Cap 40 MG PO BID for 30 Days, #60 CAP Amlodipine Besylate (Amlodipine Besylate) 5 Mg Tab 5 MG PO QAM for 7 Days, #7 TAB Continued Medications: Abiraterone Acetate (Zytiga) 250 Mg Tab 4 TAB PO QAM Acetaminophen (Tylenol) 325 Mg Tab 325 MG PO, TAB Atorvastatin (Lipitor) 40 Mg Tab 40 MG PO QPM, TAB Niacinamide (Niacin) 500 Mg Tab 500 MG PO QAM, TAB Tamsulosin HCl (Tamsulosin HCl) 0.4 Mg Cap 1 CAP PO DAILY Venlafaxine Hcl (Effexor Extended Rel) 150 Mg Cap 150 MG PO QAM, CAP Discontinued Medications: Hydrochlorothiazide (Hctz) 25 Mg Tab 25 MG PO QAM, TAB Discharge Exam Review of Systems: Constitutional: No fever, No chills Eyes: No worsening of vision ENT: No unusual epistaxis Respiratory: No cough, No sputum Cardiovascular: No chest pain, No orthopnea Abdomen: No pain, No nausea Musculoskeletal: No joint pain Neurologic: No memory loss, No paralysis Psychiatric: No depression symptoms Endocrine: No fatigue, No excessive thirst Hematologic / Lymphatic: No abnormal bleeding/bruising Integumentary: No rash Physical Exam: General Appearance: WD/WN, no apparent distress Neck: supple, no adenopathy Respiratory/Chest: chest non-tender, lungs clear, normal breath sounds Cardiovascular: regular rate, rhythm, no edema Abdomen / GI: normal bowel sounds, non tender, soft, + pertinent finding ( inguinal and umbilical scar) Extremities: no calf tenderness Neurologic/Psychiatric: alert, oriented x 3 Skin: normal color Lymphatic: no adenopathy Hospital Course 82 y/o M who was admitted on 08/09 for n/v, fever, findings of possible Left lower lobe pneumonia on CT Left lower lobe pneumonia: There is a possible aspiration pneumonia in setting of recent N/V. Patient had 5 days of treatment and was asymptomatic and afebrile for more than 3 days. will stop levaquin RUQ abd. pain pain improved while being NPO Endoscopy showed multiple duodenal ulcers which were less than 1 cm This was most likely source of pain given Appetite improved on PPI. GB US shows some small stones, no signs of cholecystitis lipase normal and LFT normal no nausea for 48 hours, not needing Zofran Hypokalemia: improved. will monitor. Hypertension: elevated, added amlodipine. Will resume farhat inhibitor at discharge Hyperlipidemia: continue home meds Prostate ca: monthly medications Other: Full code. Pt states he would not want prolonged life support. is present and understands this. advanced diet to low fiber and patient tolerated this. Total Time Spent: Greater than 30 minutes This includes examination of the patient, discharge planning, medication reconciliation, and communication with other providers. Discharge Instructions Please refer to the electronic Patient Visit Report (Discharge Instructions) for additional information. Follow-Up F/U with gastro in 4 weeks F/U with PCP in 2 weeks Additional Copies To Alexander Tate M.D.
[2017-08-14] MEDS ORDERED: NRV5 PO (15:41)
[2017-08-14] MEDS ORDERED: LSN20 PO ×2 (15:41→15:46)
[2017-08-14] MEDS ORDERED: AMLO5TAB2 PO (15:46)
[2017-08-14 16:12] VITALS: BP 137/71; PULSE 88; TEMP 36.6; O2SAT 100
[2017-08-14] MEDS ORDERED: LANSOPRAZOLE SOLUTAB 15 MG PO SCH (20:00)
[2017-08-14] MEDS ORDERED: LISINOPRIL 10 MG TAB PO SCH (21:00)
[2017-08-15] MEDS ORDERED: ABIRATERONE ACETATE 250 MG PO SCH (06:30)
== END 2017-08-14 16:40 | disposition home or self-care (01) | DRG 178 ==
LOC: C.EDB 13:39 → C.4E 17:23 → ENRESERV 18:21
PROVIDERS: ADMIT Family Medicine; ATTEND Internal Medicine Sports Medicine
PROC: 0DB98ZX Excision of Duodenum, Via Natural or Artificial Opening Endoscopic, Diagnostic (ICD-10-PCS; principal; 2017-08-13 12:34)
PROC: 0DB68ZX Excision of Stomach, Via Natural or Artificial Opening Endoscopic, Diagnostic (ICD-10-PCS; principal; 2017-08-13 12:34)
DX: J69.0 Pneumonitis due to inhalation of food and vomit (principal); Z68.41 Body mass index [BMI] 40.0-44.9, adult; C79.51 Secondary malignant neoplasm of bone; C61 Malignant neoplasm of prostate; I10 Essential (primary) hypertension; E87.6 Hypokalemia; E78.00 Pure hypercholesterolemia, unspecified; R11.2 Nausea with vomiting, unspecified; R10.11 Right upper quadrant pain; K26.9 Duodenal ulcer, unspecified as acute or chronic, without hemorrhage or perforation; K44.9 Diaphragmatic hernia without obstruction or gangrene; E66.3 Overweight; Z79.899 Other long term (current) drug therapy; Z92.3 Personal history of irradiation

== ENCOUNTER → 2017-09-27 | Outpatient (CLI) | payer BC ==
[~2017-09-27] MED LIST changes: +ACET-1311 PO; +AMLO5TAB2 PO; -DSWCR15 TOP; -HYDR25TA4 PO; +LSN20 PO; +NRV5 PO; +SINCALIDE INJ 2.1 MCG in SODIUM CHLORIDE 0.9% 100ML 100 ML IV SCH
--- NOTE | 2017-09-27 11:00 | DIAGNOSTIC IMAGING REPORT ---
HEPATOBILIARY EF IMAGING HISTORY: Nausea. Pain. GALLSTONES W/NAUSEA COMPARISON: None. TECHNIQUE: Immediately following the intravenous administration of 5.494 mCi Tc-99m Choletec, dynamic anterior abdominal imaging pre/post 2.1 mcg of Kinevac was performed. FINDINGS: Uniform hepatic tracer accumulation is shown. Prompt intrahepatic biliary excretion is seen. The gallbladder, common bile duct, and small bowel are all visualized by 15 minutes. This appearance represents the normal sequence of biliary excretion. The gallbladder ejection fraction following administration of Kinevac was 74 % (normal >35%). IMPRESSION: 1. No evidence for cystic duct obstruction. 2. Gallbladder ejection fraction calculated to be 74 %. The above report was generated using voice recognition software. It may contain grammatical, syntax or spelling errors. Electronically signed by: Lex Hewitt M.D. 09/27/2017 10:58 AM Dictated Date/Time: 09/27/2017 10:56 AM
== END | disposition home or self-care (01) ==
LOC: C.NUCL 06:36
PROVIDERS: ATTEND Internal Medicine Gastroenterology
DX: R11.0 Nausea (principal); R63.0 Anorexia; K80.20 Calculus of gallbladder without cholecystitis without obstruction

== ENCOUNTER → 2017-10-03 | Day surgery (SDC) | payer BC ==
[~2017-10-03] VITALS: Ht 162.6 cm; Wt 112.0 kg
[~2017-10-03] MED LIST changes: +CHOL20007 PO; +DVN/160 PO; +FENTANYL CITRATE INJ 50 MCG/1 ML 2 ML VIAL ONE; +FURO-85 PO; +HEPARIN SOD (PORCINE) 1000 UNIT/ML 10 ML VIAL ONE; +LIDOCAINE HCL 1% 20 ML VIAL ONE; +METO25TA3 PO; +MIDAZOLAM HCL 1 MG/ML 2ML VIAL ONE; +NITROGLYCERIN/D5W 100MCG/ML 20ML SYR ONE; +NiCARDipine HCL INJ 2.5 MG/ML 10 ML AMP ONE; +ONDA4TAB46 PO; +PRED-301 PO; +PRLSR20 PO; -SINCALIDE INJ 2.1 MCG in SODIUM CHLORIDE 0.9% 100ML 100 ML IV SCH; +VNTHFA/IN INH
[2017-10-03 07:23] VITALS: BP 161/87; PULSE 78; TEMP 36.3; O2SAT 99; Ht 162.6 cm; Wt 112.0 kg
--- NOTE | 2017-10-03 07:32 | Pre Sedation Assessment ---
Pre Sedation Assessment General Date of Sedation: Oct 03, 2017. Review Cardiovascular: regular rate, rhythm, no edema Lungs: chest non-tender, lungs clear Pre-Sedation Airway Assessment Smoking Status: Never Smoker Hx of Sleep Apnea: No Hx of difficult intubation: No Short Thick Neck: No Thyro-mental Distance: > 3 Finger Breadths Oral Cavity: WNL Mallampati Classification: Class II ASA Classification: Class III Procedure Planning Contraindications for Sedation: None Current Medications Reviewed: Yes Notes The planned sedation has been discussed with the patient. Informed Consent was obtained. I have identified the patient, determined the appropriateness of sedation and have assessed the patient immediately prior to the procedure. All medicine(s) and interventions are by my order.
--- NOTE | 2017-10-03 09:05 | Post Sedation Assessment ---
Post Sedation Assessment General Date of Sedation Oct 03, 2017. Vital Signs: Vital Signs Past 12 Hours Date Time Temp Pulse Resp B/P (MAP) Pulse Ox O2 Delivery O2 Flow Rate FiO2 10/03/17 07:23 36.3 78 18 161/87 (111) 99 Room Air Post Procedure Recovery Score Activity: (2) Moves 4 extremities * Respiration: (2) Deep breath/cough Circulation: (2) +/-20% PreAnes Value Consciousness: (2) Fully Awake Oxygen Saturation: (2) > 92% On Room Air Post Anesthesia Score: 10 Discharge Sedation Level of Care: Phase I Post Sedation Plan On clinical assessment, the patient appears to have tolerated the sedation without complications. Patient is recovering as anticipated. Patient will continue to be monitored by nursing and may be discharged when sedation discharge criteria are met per below protocol. Upon Completions of procedure and additional 15 minutes continue every 5 minute vital signs and the P.A.R. score; then discharge to a Phase I or Fast Track to Phase II per the following guidelines: * Discharge Patient to appropriate Phase II area if PAR is 8 or greater or return to pre- procedure baseline. The post - procedure orders will be as directed. * If PAR score is less than 8 or not return to pre-procedure baseline then patient will follow Phase I monitoring till PAR is reached for Phase II. The Phase I may be done in procedure room or may call to secure a Phase I area. * If naloxone or flumazenil are used for reversal, hold in Phase I for an additional 60 -120 minutes before discharge to Phase II. Please call the Sedation Physician to re-evaluate and complete post-note for discharge to Phase II area. Do NOT discharge from procedure sedation or Phase 1 until post- sedation evaluation note is complete by procedure /sedation MD Sedation Discharge Instructions to be given to the patient at discharge to home.
--- NOTE | 2017-10-03 09:38 | Cardiac Catheterization ---
Procedure Note Procedure Date Oct 03, 2017. Pre-Procedure Diagnosis Valvular Disease, Cardiothoracic Symptom AUC Score 7 Post-Procedure Diagnosis Moderate CAD, Elevated Intracardiac Pressures Procedure(s) Performed Coronary Angiography, Right Heart Cath [employer] Joiner(s) Ever Estimated Blood Loss 15 Medication(s) Fentanyl, Heparin, Nicardipine, Nitroglycerin, Versed, Lidocaine 1% Summary of Findings Indication: Severe , pre-TAVR evaluation Access: 5Fr right radial artery; 6Fr slender right antecubital vein Catheters: [place], JL3.5; 6Fr swan Findings: LM - Angiographically normal LAD - 40-50% proximal to mid stenosis at take-off of 1st diagonal; distal luminal irregularities. Small 1st diagonal with 60-70% mid stenosis Circumflex - Co-dominant, large vessel; 30% proximal stenosis at take-off of high 1st OM. 60% stenosis in small distal segment prior to take-off of small L- PDA. Moderate caliber OM1, OM2 with luminal irregularities. RCA - Co-dominant; moderate caliber; 20-30% distal stenosis prior to take-off of R-PDA RA 8 RV 50/11 PA 48/17 (31) PAWP 17 PaSat 76% AoSat 100% John CO/CI 7.2/3.3 Thermo CO/CI 5.7/2.6 TPG 14mmHg. PVR 2.45 Wood units DPG 0 Arterial Closure: TR Band Summary: 1. Moderate non-obstructive coronary artery disease - 40-50% proximal to mid LAD - 60% in small distal circumflex 2. Mild pulmonary hypertension 3. Mildly elevated left and right sided filling pressures. 4. Preserved cardiac output Recommendations: Follow-up with Dr. Michaud and [facility] Cardiac surgery as scheduled. 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
--- NOTE | 2017-10-03 11:02 | Discharge Instructions ---
Discharge Instructions Procedure Procedure Date: Oct 03, 2017. Reason for Visit: Aortic Stenosis *Alexander To Do*. Discharge Discharge Date: Oct 03, 2017. Discharge Diagnosis: Aortic stenosis Last Recorded Wt (Kilograms): 112 Anesthesia Post Anesthesia Instructions: If you have had General Anesthesia or IV Sedation: * Do not drive today. * Resume driving when surgeon permits. * Do not make important decisions or sign legal documents today. * Call surgeon for: 1. Temperature elevations greater than 101 degrees F. 2. Uncontrollable pain. 3. Excessive bleeding. 4. Persistent nausea and vomiting. 5. Medication intolerance (nausea, vomiting or rash). * For nausea and vomiting use only clear liquids such as: tea, soda, bouillon until nausea subsides, then gradually increase diet as tolerated. * If you have any concerns or questions, call your surgeon's office. If physician is unavailable and it is an emergency, call 911 or go to the nearest emergency room. Instructions Activity Recommendations: limitations as noted below Recommended Home Diet: resume previous diet, low cholesterol Allergies: Coded Allergies: Diphtheria Toxoid (Verified Allergy, Intermediate, SWELLING,BLISTERS, REDNESS,HIVES FROM [facility], 08/09/17) Pertussis Vaccine (Verified Allergy, Intermediate, SWELLING,HIVES,REDNESS, BLISTERS FROM [facility], 08/09/17) Tetanus Toxoid (Verified Allergy, Intermediate, SWELLING,BLISTERS,REDNESS, HIVES FROM [facility], 08/09/17) Follow Up Additional Instructions: ACTIVITY RECOMMENDATIONS: Excess manipulation of the wrist should be avoided for the next 24-48 hours. * No lifting over 2 pounds (approximately a 1/2 gallon of milk) with the utilized arm for 24 hours. * No strenuous activity such as bowling or tennis for 3 days. * Keep the site of the procedure covered with a bandage for 24 hours. *You may shower the day after the procedure. Do not take a tub bath or submerge the puncture site in water for the next 3 days. *Do not operate any motorized equipment for 3 days. SPECIAL CARE INSTRUCTIONS: The site may be slightly bruised and sore following your procedure. Should any of the following occur, contact the Dr. who performed your procedure. 1. Redness/inflammation, swelling, chills, or fever, or colored drainage at procedure site within 3-7 days after your procedure. 2. Coldness, discoloration, ongoing numbness, severe pain, or swelling. Expect mild tingling of hand and tenderness at the puncture site for up to three days. If this persists beyond three days, or other symptoms develop, notify the Dr. who performed your procedure. BLEEDING: If the procedure site on your wrist begins to bleed, do not panic 1. Place 1 or 2 fingers firmly just slightly above the insertion site to stop the bleeding. You may be able to feel your pulse as you hold pressure. 2. Lift your finger after 5 minutes to see if the bleeding has stopped. 3. Once the bleeding has stopped, gently wipe the wrist area clean with a bandage. * If the bleeding from your wrist does not stop after 10 minutes, or if there is a large amount of bleeding or spurting, call 911 (do not drive yourself to the hospital). SKIN IRRITATION: * You may experience some redness and/or swelling in the area where radiation was administered. If any skin irritation occurs, please contact your family physician. FOLLOW UP VISIT: Keep any scheduled doctor appointments. Follow-up with: As scheduled with Dr. Jaswant Burton Recommendations: Call your doctor if: * Temperature above 101 degrees * Pain not relieved by pain medicine ordered * There is increased drainage or redness from any incision * You have any unanswered questions or concerns. Your Doctors Instructions noted above were prepared by provider Griffin Alexander. Patient Signature Section: Patient Instructions Signature Page Broderick Dyer Patient (or Guardian) Signature/Date: I have read and understand the instructions given to me by my caregivers. Caregiver/RN/Doctor Signature/Date: The above-named patient and/or guardian has received patient instructions on this date. + Original Patient Signature Page (only) stays with chart. Please make copy for patient.
[2017-10-03 11:30] VITALS: BP 132/80; PULSE 62; O2SAT 98
== END | disposition home or self-care (01) ==
LOC: C.CATH 06:15
PROVIDERS: ATTEND Internal Medicine Interventional Cardiology
DX: I35.0 Nonrheumatic aortic (valve) stenosis (principal); I51.9 Heart disease, unspecified; I50.22 Chronic systolic (congestive) heart failure; I27.20 Pulmonary hypertension, unspecified; Z85.46 Personal history of malignant neoplasm of prostate; Z96.653 Presence of artificial knee joint, bilateral; I10 Essential (primary) hypertension; N40.0 Benign prostatic hyperplasia without lower urinary tract symptoms; K21.9 Gastro-esophageal reflux disease without esophagitis; Z88.8 Allergy status to other drugs, medicaments and biological substances; Z91.040 Latex allergy status

== ENCOUNTER → 2017-11-01 | Outpatient (CLI) | payer BC ==
[~2017-11-01] MED LIST changes: -ACET-1311 PO; -AMLO5TAB2 PO; +ASPI-232 PO; +CLOP1TAB15 PO; +CYAN6000; +DTRSR4 PO; -FENTANYL CITRATE INJ 50 MCG/1 ML 2 ML VIAL ONE; -HEPARIN SOD (PORCINE) 1000 UNIT/ML 10 ML VIAL ONE; +LANSPOW; +LEUP11.23; -LIDOCAINE HCL 1% 20 ML VIAL ONE; -LSN20 PO; -MIDAZOLAM HCL 1 MG/ML 2ML VIAL ONE; -NIAC500T7 PO; -NITROGLYCERIN/D5W 100MCG/ML 20ML SYR ONE; -NRV5 PO; -NiCARDipine HCL INJ 2.5 MG/ML 10 ML AMP ONE; +POTA10CA28 PO
--- NOTE | 2017-11-01 11:50 | DIAGNOSTIC IMAGING REPORT ---
CHEST 2 VIEWS ROUTINE HISTORY: Status post pacemaker placement. COMPARISON: Chest 08/09/2017. FINDINGS: Interval placement of a left-sided dual-chamber pacemaker. The leads appear intact. The heart remains mildly enlarged and there is a cardiac valve prosthesis. No pneumothorax. Small bilateral pleural effusions. Mild pulmonary vascular congestion without overt edema. This is improved. Bibasilar densities favor atelectasis from the pleural fluid but are technically indeterminate. IMPRESSION: 1. Interval placement of a left-sided dual-chamber pacemaker. No pneumothorax. 2. Mild pulmonary vascular congestion, cardiomegaly, and small bilateral pleural effusions. Electronically signed by: Eliseo Krishnan M.D. 11/01/2017 11:49 AM Dictated Date/Time: 11/01/2017 11:47 AM
[2017-11-01 12:27] LABS: PLATELET COUNT 151 K/uL (130-400)
== END | disposition home or self-care (01) ==
LOC: C.RAD 10:48
PROVIDERS: ATTEND Physician Assistant
DX: Z95.0 Presence of cardiac pacemaker (principal); D69.6 Thrombocytopenia, unspecified; I51.7 Cardiomegaly; J90 Pleural effusion, not elsewhere classified

== ENCOUNTER 2019-07-10 12:18 | Inpatient (IN) ==
[2019-07-10] MEDS ORDERED: HALOPERIDOL LACTATE 5 MG/ML 1 ML VIAL IV STA (12:39)
[2019-07-10] MEDS ORDERED: LORazepam 2 MG/4 ML VIAL IV STA (12:39)
[2019-07-10] MEDS ORDERED: LORazepam 2 MG/4 ML VIAL ONE (12:42)
[2019-07-10 12:52] LABS: iSTAT Creatinine 1.2 mg/dl (0.6-1.3); iSTAT Hemoglobin 10.5 g/dl (14.0-18.0); iSTAT Ionized Calcium 1.16 mmol/l (1.12-1.32); iSTAT Potassium 4.7 mEq/L (3.3-5.0)
[2019-07-10 13:05] LABS: Basophils # (auto) 0.02 K/uL (0-0.2); Basophils % (auto) 0.2 %; Eosinophils # (auto) 0.05 K/uL (0-0.5); Eosinophils % (auto) 0.5 %; Hematocrit (blood only) 32.9 % (42-52); Hemoglobin 11.3 g/dL (14.0-18.0); Immature Granulocytes # (auto) 0.22 K/uL (0.00-0.02); Immature Granulocytes % (auto) 2.3 %; Lymphocytes # (auto) 2.53 K/uL (1.2-3.4); Lymphocytes % (auto) 26.1 %; Mean Corpuscular Hgb Conc 34.3 g/dL (32-36); Mean Corpuscular Volume 93.2 fL (80-100); Monocytes # (auto) 0.92 K/uL (0.11-0.59); Monocytes % (auto) 9.5 %; Neutrophils # (auto) 5.94 K/uL (1.4-6.5); Neutrophils % (auto) 61.4 %; Platelet Count 162 K/uL (130-400); RDW Coefficient of Variation 16.5 % (11.5-14.5); RDW Standard Deviation 56.2 fL (36.4-46.3); Red Blood Count 3.53 M/uL (4.7-6.1); White Blood Count 9.68 K/uL (4.8-10.8)
[2019-07-10 13:21] LABS: INR 1.2 (0.9-1.1); Prothrombin Time 11.9 Seconds (9.0-12.0)
[2019-07-10 13:23] LABS: Alanine Aminotransferase 26 U/L (12-78); Aspartate Aminotransferase 22 U/L (15-37); BUN Creatinine Ratio 25.9 (10-20); Blood Urea Nitrogen 32 mg/dl (7-18); Calcium 8.7 mg/dl (8.5-10.1); Carbon Dioxide 24 mmol/L (21-32); Chloride 101 mmol/L (98-107); Est GFR (African American) 60.5; Est GFR (Non-African American) 52.2; Glucose 80 mg/dl (70-99); Lipase 64 U/L (73-393); Magnesium 2.1 mg/dl (1.8-2.4); Potassium 4.6 mmol/L (3.5-5.1); Sodium 133 mmol/L (136-145)
[2019-07-10] MEDS ORDERED: HALOPERIDOL LACTATE 5 MG/ML 1 ML VIAL IM STA (13:28)
[2019-07-10 13:34] LABS: Albumin Globulin Ratio 0.8 (0.9-2); Alkaline Phosphatase 72 U/L (45-117); Bilirubin,Total 0.8 mg/dl (0.2-1); Globulin 3.6 gm/dl (2.5-4.0); Total Protein 6.6 gm/dl (6.4-8.2); Troponin I < 0.015 ng/ml (0-0.045)
[2019-07-10] MEDS ORDERED: MIDAZOLAM HCL 5 MG/ML 1 ML VIAL IV STA ×3 (13:54→18:07)
[2019-07-10] MEDS ORDERED: MIDAZOLAM HCL 1 MG/ML 2ML VIAL ONE ×4 (13:58→18:06)
[2019-07-10] MEDS ORDERED: IOVERSOL 100ml IV PRN (14:15)
--- NOTE | 2019-07-10 14:19 | XRay Report ---
XR chest 1V portable HISTORY: Altered mental status. COMPARISON: Chest 03/30/2019. FINDINGS: The heart remains mildly enlarged. Small bilateral pleural effusions and bibasilar densitie s have improved. No evidence for pulmonary edema. Low lung volumes. Cardiac valve prosthesis is noted . Left-sided dual-chamber pacemaker. No pneumothorax. 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 IMPRESSION: 1. Cardiomegaly with interval improvement in the small bilateral pleural effusions and bibasilar dens ities. 2. 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 Electronically signed by: Eliseo Krishnan M.D. 07/10/2019 2:18 PM
--- NOTE | 2019-07-10 14:21 | Emergency Department Note ---
Entered by Jae Ortez acting as a scribe for History of Present Illness General Chief complaint: Altered Mental Status Time Seen by Provider: 07/10/19 12:36 Source: patient History of Present Illness Provider complaint: Altered mental status Onset (ago): minute(s) (Just prior to arrival ) Location: head Pain Consistency: + constant Relieved By: + none Associated symptoms: + other (Agitation ) The patient is an 84 year old male who presents to the Emergency Room with acute onset constant altered mental status that began just prior to arrival. Per the nurse, his last known well was 11:30. Per EMS, the patient was at the outpatient care building across the parking lot waiting for his to be done with an appointment when his mental status suddenly changed. Per the nurse, the patient had the sudden urge to void followed shortly after by the sudden urge to cry. Since this time the patient has been altered and upon arrival to the ED he shai me agitated and combative. Per the nurse, the patient was at baseline prior to the appointment and he has no psychiatric history. HPI is limited secondary to the patient's altered mental status. Per the patient's family, he has not had any recent changes in medication. They did mention that the patient is getting chemotherapy for prostate cancer. The family also reports that he takes a baby Aspirin daily and has no history of prior stroke. I was called to the room immediately by charge nurse due to combative nature of patient. Home Medications Home Medications Medication Instructions Recorded Confirmed Type atorvastatin [Lipitor] 40 mg PO PM #0 tab 07/25/16 07/10/19 History tamsulosin [Flomax] 0.4 mg PO HS #0 07/25/16 07/10/19 History venlafaxine [Effexor XR] 150 mg PO DAILY #0 cap 07/25/16 07/10/19 History Vitamin D3 4,000 unit PO DAILY 30 Days #6 tab 10/03/17 07/10/19 History albuterol sulfate [Ventolin HFA] 1 puff INHALATION Q6H PRN #1 10/03/17 07/10/19 History inhaler furosemide [Lasix] 20 mg PO DAILY #0 tab 10/03/17 07/10/19 History ondansetron HCl [Zofran] 4 mg PO TID PRN #0 tab 10/03/17 07/10/19 History Lupron Depot 3.75 mg IM MONTHLY #0 11/06/17 07/10/19 History cyanocobalamin (vitamin B-12) 1,000 mcg SUBCUT MONTHLY #0 11/26/17 07/10/19 History clonidine HCl 0.1 mg PO BID 07/10/19 07/10/19 History metoprolol succinate 50 mg PO DAILY 07/10/19 07/10/19 History pantoprazole 40 mg PO DAILY 07/10/19 07/10/19 History tolterodine 4 mg PO HS 07/10/19 07/10/19 History valsartan 320 mg PO DAILY 07/10/19 07/10/19 History Allergies Allergy/AdvReac Type Severity Reaction Status Date / Time diphtheria toxoid,fluid Allergy Intermediate SWELLING,BLISTERS,REDNESS,HIVES Verified 07/10/19 13:53 FROM [facility] Pertussis Vaccines Allergy Intermediate SWELLING,HIVES,REDNESS,BLISTERS Verified 07/10/19 13:53 FROM [facility] tetanus toxoid, adsorbed Allergy Intermediate SWELLING,BLISTERS,REDNESS,HIVES Verified 07/10/19 13:53 FROM [facility] latex Allergy Unknown SHORTNESS Verified 07/10/19 13:53 OF BREATH lisinopril Allergy Unknown Unknown Verified 07/10/19 19:49 Past Med/Surg History Medical History Acute diastolic heart failure Anemia (Chronic ~01/2012) GI bleed Hypertension (Chronic 01/30/12) Hypokalemia Left ventricular diastolic dysfunction (Acute) Prostate CA (Acute) Stroke UTI (urinary tract infection) Family History Other Family history non-contributory Social History Preferred Language: Hebrew Communication Ability: Effective Instructional Support Specialist Required: No Beliefs That Will Affect Care: None marital status: Current Living Situation: Spouse Feels Safe at Home: Yes Smoking Status: Unknown if ever smoked Hx Alcohol Use: No Hx Substance Use: No Review of Systems See HPI for pertinent positives & negatives. Other (Limited secondary to the patient's altered mental status.) Physical Exam Vital Signs Vital Signs - 24 hr 07/10/19 12:14 07/10/19 12:54 07/10/19 13:00 Temperature 99.0 F Temperature Source Oral Pulse Rate 88 99 H 91 H Pulse Rate from SpO2 Sensor 97 H 95 H Pulse Rhythm Regular Pulse Strength Normal Respiratory Rate 17 24 19 Respiratory Effort / Characteristics Non-Labored Spontaneous Respiratory Depth Normal Respiratory Pattern Regular Blood Pressure 151/94 H Blood Pressure Mean 113 Blood Pressure Position Lying Pulse Oximetry 100 97 99 Oxygen Delivery Method Room Air Sepsis Recent Fever Within 48 Hours No Sepsis New/Unexplained Change in Mental Status Yes Sepsis Action Taken by Nursing No Action Required 07/10/19 13:01 07/10/19 13:16 07/10/19 13:27 Temperature Temperature Source Pulse Rate 92 H 93 H 96 H Pulse Rate from SpO2 Sensor 91 H 94 H 98 H Pulse Rhythm Pulse Strength Respiratory Rate 18 22 19 Respiratory Effort / Characteristics Respiratory Depth Respiratory Pattern Blood Pressure 151/94 H 79/61 L 123/80 Blood Pressure Mean 115 71 109 Blood Pressure Position Pulse Oximetry 100 100 99 Oxygen Delivery Method Sepsis Recent Fever Within 48 Hours Sepsis New/Unexplained Change in Mental Status Sepsis Action Taken by Nursing 07/10/19 13:30 07/10/19 13:39 07/10/19 13:46 Temperature Temperature Source Pulse Rate 96 H 94 H 96 H Pulse Rate from SpO2 Sensor 95 H 92 H 96 H Pulse Rhythm Pulse Strength Respiratory Rate 23 21 Respiratory Effort / Characteristics Respiratory Depth Respiratory Pattern Blood Pressure 150/128 H 143/91 H Blood Pressure Mean 130 114 Blood Pressure Position Pulse Oximetry 99 99 98 Oxygen Delivery Method Sepsis Recent Fever Within 48 Hours Sepsis New/Unexplained Change in Mental Status Sepsis Action Taken by Nursing 07/10/19 14:00 07/10/19 14:01 07/10/19 14:30 Temperature Temperature Source Pulse Rate 96 H 92 H 78 Pulse Rate from SpO2 Sensor 99 H 92 H 77 Pulse Rhythm Pulse Strength Respiratory Rate 20 19 Respiratory Effort / Characteristics Respiratory Depth Respiratory Pattern Blood Pressure 158/87 H Blood Pressure Mean 118 Blood Pressure Position Pulse Oximetry 94 94 92 Oxygen Delivery Method Sepsis Recent Fever Within 48 Hours Sepsis New/Unexplained Change in Mental Status Sepsis Action Taken by Nursing 07/10/19 14:31 Temperature Temperature Source Pulse Rate 76 Pulse Rate from SpO2 Sensor 76 Pulse Rhythm Pulse Strength Respiratory Rate 19 Respiratory Effort / Characteristics Respiratory Depth Respiratory Pattern Blood Pressure 99/42 L Blood Pressure Mean 71 Blood Pressure Position Pulse Oximetry 97 Oxygen Delivery Method Sepsis Recent Fever Within 48 Hours Sepsis New/Unexplained Change in Mental Status Sepsis Action Taken by Nursing GENERAL: Combative, fighting with security. EYE EXAM: normal conjunctiva, PERRL and EOM's grossly intact OROPHARYNX: no exudate, no erythema, lips, buccal mucosa, and tongue normal and mucous membranes are moist NECK: supple, no nuchal rigidity, no adenopathy, non-tender LUNGS: Clear to auscultation. Normal chest wall mechanics, no w/r/r HEART: no murmurs, S1 normal and S2 normal ABDOMEN: abdomen soft, non-tender, normo-active bowel sounds, no masses, no rebound or guarding. BACK: Back is symmetrical on inspection and there is no deformity, no midline tenderness, no CVA tenderness. SKIN: no rashes and no bruising UPPER EXTREMITIES: upper extremities are grossly normal. FROM, nml pulses b/l, no evidence of trauma. LOWER EXTREMITIES: No pitting edema. FROM, nml pusles b/l, no evidence of trauma. NEURO EXAM: Altered sensorium. No facial droop, moving all 4 extremities, unable to be redirected, speech is clear but not appropriate for the questions being asked. Course Course 1238: Past medical records reviewed. The patient was evaluated in room A10, and a complete history and physical examination were performed. 1245: The patient is agitated and being combative with staff. We started with ativan 1mg at a time, then added haldol IM to try and calm the patient down to continue our assessment including CT of head due to abrupt onset AMS. 1325: The patient is in 4 point chela and still fighting. 1404: The patient seems to have slightly calmed down. I am going to order more medication before he goes to CT scan. 1439: I reevaluated the patient and he is out of restraints, resting calmly in bed. 1540: Family updated on results so far. 1611: Hospitalist had been paged, unable to discuss with him yet, case discussed with resident preliminarily. 1645: Case discussed with hospitalist. Pt improved currently although still altered. Administered Medications Discontinued Medications Aspirin (Aspirin Chew) 324 mg PO 1944 ONE Stop: 07/10/19 19:46 Last Admin: 07/10/19 22:14 Dose: Not Given Documented by: [id number] Aspirin (Aspirin) Confirm Administered Dose 324 mg .ROUTE .[facility] ONE Stop: 07/10/19 22:10 Last Admin: 07/10/19 22:14 Dose: 324 mg Documented by: [id number] Atorvastatin Calcium (Lipitor) 40 mg PO PM UNA Stop: 08/09/19 20:59 Last Admin: 07/11/19 20:54 Dose: 40 mg Documented by: [id number] Admin: 07/10/19 21:58 Dose: 40 mg Documented by: [id number] Clonidine HCl (Catapres) 0.1 mg PO BID UNA Stop: 08/09/19 20:59 Last Admin: 07/12/19 08:11 Dose: 0.1 mg Documented by: [id number] Admin: 07/11/19 20:52 Dose: 0.1 mg Documented by: [id number] Admin: 07/11/19 07:56 Dose: 0.1 mg Documented by: [id number] Admin: 07/10/19 21:58 Dose: 0.1 mg Documented by: [id number] Enoxaparin Sodium (Lovenox) 30 mg SQ Q24H [facility] Stop: 08/09/19 20:59 Last Admin: 07/11/19 20:50 Dose: 30 mg Documented by: [id number] Admin: 07/10/19 21:58 Dose: 30 mg Documented by: [id number] Furosemide (Lasix) 20 mg PO DAILY [facility] Stop: 08/10/19 08:59 Last Admin: 07/12/19 08:11 Dose: 20 mg Documented by: [id number] Admin: 07/11/19 07:57 Dose: 20 mg Documented by: [id number] Gadobutrol (Gadavist 65ml) 9.5 ml IV ONCE PRN PRN Reason: Interaction Checking Stop: 07/15/19 16:15 Last Admin: 07/11/19 16:16 Dose: 9.5 ml Documented by: [id number] Haloperidol Lactate (Haldol) 5 mg IV NOW STA Stop: 07/10/19 12:40 Last Admin: 07/10/19 12:53 Dose: 5 mg Documented by: [id number] Haloperidol Lactate (Haldol) 5 mg IM NOW STA Stop: 07/10/19 13:29 Last Admin: 07/10/19 13:33 Dose: 5 mg Documented by: [id number] Lorazepam (Ativan) 2 mg in 4 mls @ 4 mls/min IV NOW STA Stop: 07/10/19 12:40 Last Admin: 07/10/19 12:46 Dose: 4 mls/min Documented by: [id number] Sodium Chloride (Nss 1000ml) 1,000 mls @ 999 mls/hr IV .Q1H1M ONE Stop: 07/10/19 15:23 Last Infusion: 07/10/19 15:50 Dose: 0 mls/hr Documented by: [id number] Admin: 07/10/19 14:56 Dose: 999 mls/hr Documented by: [id number] Cefepime HCl (Maxipime) 2,000 mg in 20 mls @ 5 mls/min IV NOW STA Stop: 07/10/19 14:35 Last Admin: 07/10/19 15:43 Dose: 5 mls/min Documented by: [id number] Vancomycin HCl 2,000 mg/ (Sodium Chloride) 540 mls @ 200 mls/hr IV NOW ONE Stop: 07/10/19 17:13 Last Infusion: 07/10/19 19:56 Dose: 0 mls/hr Documented by: [id number] Admin: 07/10/19 15:49 Dose: 200 mls/hr Documented by: [id number] Sodium Chloride (Nss 1000ml) 1,000 mls @ 999 mls/hr IV .Q1H1M ONE Stop: 07/10/19 16:46 Last Infusion: 07/10/19 17:07 Dose: 0 mls/hr Documented by: [id number] Admin: 07/10/19 16:04 Dose: 999 mls/hr Documented by: [id number] Cefepime HCl 2,000 mg/ Syringe 20 mls @ 5.5 mls/min IV Q12H UNA; Protocol Stop: 07/13/19 00:00 Last Admin: 07/11/19 12:01 Dose: 5.5 mls/min Documented by: [id number] Admin: 07/10/19 23:34 Dose: 5.5 mls/min Documented by: [id number] Lactated Ringer's (Lr) 1,000 mls @ 80 mls/hr IV .[id number] UNA Stop: 08/09/19 18:54 Last Infusion: 07/11/19 13:15 Dose: 0 mls/hr Documented by: [id number] Admin: 07/11/19 11:58 Dose: 80 mls/hr Documented by: [id number] Infusion: 07/11/19 10:27 Dose: 80 mls/hr Documented by: [id number] Infusion: 07/11/19 07:56 Dose: 80 mls/hr Documented by: [id number] Admin: 07/10/19 21:57 Dose: 80 mls/hr Documented by: [id number] Ampicillin Sodium 1,000 mg/ (Sodium Chloride) 50 mls @ 100 mls/hr IV Q3H UNA Stop: 07/20/19 20:29 Last Infusion: 07/11/19 15:06 Dose: 0 mls/hr Documented by: [id number] Admin: 07/11/19 14:31 Dose: 100 mls/hr Documented by: [id number] Infusion: 07/11/19 12:44 Dose: 0 mls/hr Documented by: [id number] Admin: 07/11/19 12:01 Dose: 100 mls/hr Documented by: [id number] Infusion: 07/11/19 08:48 Dose: 0 mls/hr Documented by: [id number] Admin: 07/11/19 07:53 Dose: 100 mls/hr Documented by: [id number] Infusion: 07/11/19 02:57 Dose: 0 mls/hr Documented by: [id number] Admin: 07/11/19 02:22 Dose: 100 mls/hr Documented by: [id number] Infusion: 07/11/19 00:27 Dose: 0 mls/hr Documented by: [id number] Admin: 07/10/19 23:33 Dose: 100 mls/hr Documented by: [id number] Infusion: 07/10/19 22:32 Dose: 0 mls/hr Documented by: [id number] Admin: 07/10/19 21:57 Dose: 100 mls/hr Documented by: [id number] Vancomycin HCl 1,500 mg/ (Sodium Chloride) 530 mls @ 200 mls/hr IV Q16H [facility]NA Stop: 07/12/19 16:00 Last Infusion: 07/11/19 10:45 Dose: 0 mls/hr Documented by: [id number] Admin: 07/11/19 07:54 Dose: 200 mls/hr Documented by: [id number] Potassium Phosphate 9 mmol/ (Sodium Chloride) 253 mls @ 88 mls/hr IV ONE ONE Stop: 07/12/19 11:07 Last Infusion: 07/12/19 11:59 Dose: 0 mls/hr Documented by: [id number] Admin: 07/12/19 08:55 Dose: 88 mls/hr Documented by: [id number] Ioversol (Optiray 320 100ml) 93 ml IV ONCE PRN PRN Reason: Interaction Checking Stop: 07/14/19 14:14 Last Admin: 07/10/19 14:15 Dose: 93 ml Documented by: [id number] Lorazepam (Ativan) Confirm Administered Dose 2 mg .ROUTE .STK-MED ONE Stop: 07/10/19 12:43 Last Admin: 07/10/19 13:19 Dose: Not Given Documented by: [id number] Lorazepam (Ativan) 1 mg PO TODAY@1230 [facility] Stop: 07/11/19 16:00 Last Admin: 07/11/19 14:31 Dose: 1 mg Documented by: [id number] Metoprolol Succinate (Toprol Xl) 50 mg PO DAILY [facility] Stop: 08/10/19 08:59 Last Admin: 07/12/19 08:11 Dose: 50 mg Documented by: [id number] Admin: 07/11/19 07:57 Dose: 50 mg Documented by: [id number] Midazolam HCl (Versed) 2 mg IV NOW STA Stop: 07/10/19 13:55 Last Admin: 07/10/19 13:59 Dose: Not Given Documented by: [id number] Midazolam HCl (Versed) Confirm Administered Dose 2 mg .ROUTE .STK-MED ONE Stop: 07/10/19 13:59 Last Admin: 07/10/19 13:59 Dose: 2 mg Documented by: [id number] Midazolam HCl (Versed) 2 mg IV NOW STA Stop: 07/10/19 14:51 Last Admin: 07/10/19 14:55 Dose: Not Given Documented by: [id number] Midazolam HCl (Versed) Confirm Administered Dose 2 mg .ROUTE .STK-MED ONE Stop: 07/10/19 14:53 Last Admin: 07/10/19 14:53 Dose: 2 mg Documented by: [id number] Midazolam HCl (Versed) Confirm Administered Dose 2 mg .ROUTE .STK-MED ONE Stop: 07/10/19 17:21 Last Admin: 07/10/19 17:24 Dose: 1 mg Documented by: [id number] Midazolam HCl (Versed) Confirm Administered Dose 2 mg .ROUTE .STK-MED ONE Stop: 07/10/19 18:07 Last Admin: 07/10/19 18:23 Dose: 2 mg Documented by: [id number] Midazolam HCl (Versed) 2 mg IV NOW STA Stop: 07/10/19 18:08 Last Admin: 07/10/19 19:55 Dose: Not Given Documented by: [id number] Ondansetron HCl (Zofran Odt) 4 mg PO Q4H PRN PRN Reason: Nausea Stop: 08/11/19 07:35 Last Admin: 07/12/19 08:01 Dose: 4 mg Documented by: [id number] Pantoprazole Sodium (Protonix) 40 mg PO DAILY [facility] Stop: 08/10/19 08:59 Last Admin: 07/12/19 08:11 Dose: 40 mg Documented by: [id number] Admin: 07/11/19 07:58 Dose: 40 mg Documented by: [id number] Tamsulosin HCl (Flomax) 0.4 mg PO HS [facility] Stop: 08/09/19 20:59 Last Admin: 07/11/19 20:53 Dose: 0.4 mg Documented by: [id number] Admin: 07/10/19 21:58 Dose: 0.4 mg Documented by: [id number] Tolterodine Tartrate (Detrol La) 4 mg PO HS [facility] Stop: 08/09/19 20:59 Last Admin: 07/11/19 20:52 Dose: 4 mg Documented by: [id number] Admin: 07/10/19 21:58 Dose: 4 mg Documented by: [id number] Valsartan (Diovan) 320 mg PO DAILY [facility] Stop: 08/10/19 08:59 Last Admin: 07/12/19 08:11 Dose: 320 mg Documented by: [id number] Admin: 07/11/19 07:57 Dose: 320 mg Documented by: [id number] Venlafaxine HCl (Effexor Extended Release) 150 mg PO DAILY [facility] Stop: 08/10/19 08:59 Last Admin: 07/12/19 08:11 Dose: 150 mg Documented by: [id number] Admin: 07/11/19 07:58 Dose: 150 mg Documented by: [id number] Vitamin D (Vitamin D3) 4,000 units PO DAILY [facility] Stop: 08/10/19 08:59 Last Admin: 07/12/19 08:11 Dose: 4,000 units Documented by: [id number] Admin: 07/11/19 07:58 Dose: 4,000 units Documented by: [id number] Critical Care Time Critical Care Time: Yes Total Critical Care Time: 96 I have personally spent greater than 96 minutes of critical care time in the direct management of this patient. This includes bedside care, interpretation of diagnostic studies, and testing, discussion with consultants, patient, and family members, and other required patient management activities. This 96 minutes is in excess of all separately billable procedures. Medical Decision Making Differential Diagnosis Differential diagnoses includes but is not limited to toxic, metabolic, infectious, traumatic, cardiac, neurologic, hematologic, psychiatric and inflammatory etiologies. Medical Records Attestation: I reviewed the patient's medical records. Home Medications Current Medication List: was personally reviewed by me Laboratory Data Attestation: I reviewed the patient's lab results. Result diagrams: 07/12/19 06:33 07/12/19 06:33 Lab Results 07/10/19 07/10/19 07/10/19 Range/Units 12:29 12:40 12:42 WBC 9.68 (4.8-10.8) K/uL RBC 3.53 L (4.7-6.1) M/uL Hgb 11.3 L (14.0-18.0) g/dL POC Hgb 10.5 L (14.0-18.0) g/dl Hct 32.9 L (42-52) % POC Hct 31 L (42-52) % MCV 93.2 (80-100) fL MCH 32.0 (25-34) pg MCHC 34.3 (32-36) g/dL RDW Std Deviation 56.2 H (36.4-46.3) fL RDW Coeff of Chasity 16.5 H (11.5-14.5) % Plt Count 162 (130-400) K/uL MPV 9.0 (7.4-10.4) fL Immature Gran % (Auto) 2.3 % Neut % (Auto) 61.4 % Lymph % (Auto) 26.1 % [place] % (Auto) 9.5 % Eos % (Auto) 0.5 % Baso % (Auto) 0.2 % Immature Gran # (Auto) 0.22 H (0.00-0.02) K/uL Neut # (Auto) 5.94 (1.4-6.5) K/uL Lymph # (Auto) 2.53 (1.2-3.4) K/uL [place] # (Auto) 0.92 H (0.11-0.59) K/uL Eos # (Auto) 0.05 (0-0.5) K/uL Baso # (Auto) 0.02 (0-0.2) K/uL PT (9.0-12.0) Seconds INR (0.9-1.1) POC Sodium 132 L (135-144) mEq/L Sodium (136-145) mmol/L POC Potassium 4.7 (3.3-5.0) mEq/L Potassium (3.5-5.1) mmol/L POC Chloride 99 L (101-112) mEq/L Chloride (98-107) mmol/L Carbon Dioxide (21-32) mmol/L POC Total CO2 24 (24-31) mEq/l Anion Gap (3-11) POC Anion Gap 15.0 L (16-25) mmol/L POC BUN 30 H (7-18) mg/dl BUN (7-18) mg/dl Creatinine (0.6-1.4) mg/dl POC Creatinine 1.2 (0.6-1.3) mg/dl Est Cr Clr Drug Dosing Est GFR ( Amer) Est GFR (Non-Af Amer) BUN/Creatinine Ratio (10-20) Glucose (70-99) mg/dl POC Glucose 89 (70-99) POC Glucose (other) 81 (70-99) mg/dl Lactate (0.4-2.0) mmol/L Calcium (8.5-10.1) mg/dl POC Ioniz Calcium Yordan 1.16 (1.12-1.32) mmol/l Magnesium (1.8-2.4) mg/dl Total Bilirubin (0.2-1) mg/dl AST (15-37) U/L ALT (12-78) U/L Alkaline Phosphatase (45-117) U/L Troponin I (0-0.045) ng/ml Total Protein (6.4-8.2) gm/dl Albumin (3.4-5.0) gm/dl Globulin (2.5-4.0) gm/dl Albumin/Globulin Ratio (0.9-2) Lipase (73-393) U/L Procalcitonin (0-0.5) ng/ml TSH (0.300-4.500) uIu/ml Urine Color Urine Appearance (Clear) Urine pH (4.5-7.5) Ur Specific [place] (1.000-1.030) Urine Protein (Negative) Urine Glucose (UA) (Negative) Urine Ketones (Negative) Urine Blood (Negative) Urine Nitrite (Negative) Urine Bilirubin (Negative) Urine Urobilinogen (Negative) Ur Leukocyte Esterase (Negative) 07/10/19 07/10/19 07/10/19 Range/Units 12:42 12:42 12:42 WBC (4.8-10.8) K/uL RBC (4.7-6.1) M/uL Hgb (14.0-18.0) g/dL POC Hgb (14.0-18.0) g/dl Hct (42-52) % POC Hct (42-52) % MCV (80-100) fL MCH (25-34) pg MCHC (32-36) g/dL RDW Std Deviation (36.4-46.3) fL RDW Coeff of Chasity (11.5-14.5) % Plt Count (130-400) K/uL MPV (7.4-10.4) fL Immature Gran % (Auto) % Neut % (Auto) % Lymph % (Auto) % [place] % (Auto) % Eos % (Auto) % Baso % (Auto) % Immature Gran # (Auto) (0.00-0.02) K/uL Neut # (Auto) (1.4-6.5) K/uL Lymph # (Auto) (1.2-3.4) K/uL [place] # (Auto) (0.11-0.59) K/uL Eos # (Auto) (0-0.5) K/uL Baso # (Auto) (0-0.2) K/uL PT 11.9 (9.0-12.0) Seconds INR 1.2 H (0.9-1.1) POC Sodium (135-144) mEq/L Sodium 133 L (136-145) mmol/L POC Potassium (3.3-5.0) mEq/L Potassium 4.6 (3.5-5.1) mmol/L POC Chloride (101-112) mEq/L Chloride 101 (98-107) mmol/L Carbon Dioxide 24 (21-32) mmol/L POC Total CO2 (24-31) mEq/l Anion Gap 8.0 (3-11) POC Anion Gap (16-25) mmol/L POC BUN (7-18) mg/dl BUN 32 H (7-18) mg/dl Creatinine 1.25 (0.6-1.4) mg/dl POC Creatinine (0.6-1.3) mg/dl Est Cr Clr Drug Dosing Not Reportable Est GFR ( Amer) 60.5 Est GFR (Non-Af Amer) 52.2 BUN/Creatinine Ratio 25.9 H (10-20) Glucose 80 (70-99) mg/dl POC Glucose (70-99) POC Glucose (other) (70-99) mg/dl Lactate (0.4-2.0) mmol/L Calcium 8.7 (8.5-10.1) mg/dl POC Ioniz Calcium Yordan (1.12-1.32) mmol/l Magnesium 2.1 (1.8-2.4) mg/dl Total Bilirubin 0.8 (0.2-1) mg/dl AST 22 (15-37) U/L ALT 26 (12-78) U/L Alkaline Phosphatase 72 (45-117) U/L Troponin I < 0.015 (0-0.045) ng/ml Total Protein 6.6 (6.4-8.2) gm/dl Albumin 3.0 L (3.4-5.0) gm/dl Globulin 3.6 (2.5-4.0) gm/dl Albumin/Globulin Ratio 0.8 L (0.9-2) Lipase 64 L (73-393) U/L Procalcitonin < 0.05 (0-0.5) ng/ml TSH 4.140 (0.300-4.500) uIu/ml Urine Color Urine Appearance (Clear) Urine pH (4.5-7.5) Ur Specific [place] (1.000-1.030) Urine Protein (Negative) Urine Glucose (UA) (Negative) Urine Ketones (Negative) Urine Blood (Negative) Urine Nitrite (Negative) Urine Bilirubin (Negative) Urine Urobilinogen (Negative) Ur Leukocyte Esterase (Negative) 07/10/19 07/10/19 Range/Units 12:43 14:51 WBC (4.8-10.8) K/uL RBC (4.7-6.1) M/uL Hgb (14.0-18.0) g/dL POC Hgb (14.0-18.0) g/dl Hct (42-52) % POC Hct (42-52) % MCV (80-100) fL MCH (25-34) pg MCHC (32-36) g/dL RDW Std Deviation (36.4-46.3) fL RDW Coeff of Chasity (11.5-14.5) % Plt Count (130-400) K/uL MPV (7.4-10.4) fL Immature Gran % (Auto) % Neut % (Auto) % Lymph % (Auto) % [place] % (Auto) % Eos % (Auto) % Baso % (Auto) % Immature Gran # (Auto) (0.00-0.02) K/uL Neut # (Auto) (1.4-6.5) K/uL Lymph # (Auto) (1.2-3.4) K/uL [place] # (Auto) (0.11-0.59) K/uL Eos # (Auto) (0-0.5) K/uL Baso # (Auto) (0-0.2) K/uL PT (9.0-12.0) Seconds INR (0.9-1.1) POC Sodium (135-144) mEq/L Sodium (136-145) mmol/L POC Potassium (3.3-5.0) mEq/L Potassium (3.5-5.1) mmol/L POC Chloride (101-112) mEq/L Chloride (98-107) mmol/L Carbon Dioxide (21-32) mmol/L POC Total CO2 (24-31) mEq/l Anion Gap (3-11) POC Anion Gap (16-25) mmol/L POC BUN (7-18) mg/dl BUN (7-18) mg/dl Creatinine (0.6-1.4) mg/dl POC Creatinine (0.6-1.3) mg/dl Est Cr Clr Drug Dosing Est GFR ( Amer) Est GFR (Non-Af Amer) BUN/Creatinine Ratio (10-20) Glucose (70-99) mg/dl POC Glucose (70-99) POC Glucose (other) (70-99) mg/dl Lactate 5.6 H* (0.4-2.0) mmol/L Calcium (8.5-10.1) mg/dl POC Ioniz Calcium Yordan (1.12-1.32) mmol/l Magnesium (1.8-2.4) mg/dl Total Bilirubin (0.2-1) mg/dl AST (15-37) U/L ALT (12-78) U/L Alkaline Phosphatase (45-117) U/L Troponin I (0-0.045) ng/ml Total Protein (6.4-8.2) gm/dl Albumin (3.4-5.0) gm/dl Globulin (2.5-4.0) gm/dl Albumin/Globulin Ratio (0.9-2) Lipase (73-393) U/L Procalcitonin (0-0.5) ng/ml TSH (0.300-4.500) uIu/ml Urine Color Yellow Urine Appearance Clear (Clear) Urine pH 8.0 H (4.5-7.5) Ur Specific [place] 1.016 (1.000-1.030) Urine Protein Negative (Negative) Urine Glucose (UA) Negative (Negative) Urine Ketones Negative (Negative) Urine Blood Negative (Negative) Urine Nitrite Negative (Negative) Urine Bilirubin Negative (Negative) Urine Urobilinogen Negative (Negative) Ur Leukocyte Esterase Negative (Negative) Imaging Data Radiologist's Impression: Radiology results as stated below per my review and the radiologist's interpretation: XR chest 1V portable HISTORY: Altered mental status. COMPARISON: Chest 03/30/2019. FINDINGS: The heart remains mildly enlarged. Small bilateral pleural effusions and bibasilar densities have improved. No evidence for pulmonary edema. Low lung volumes. Cardiac valve prosthesis is noted. Left-sided dual-chamber pacemaker. No pneumothorax. 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 IMPRESSION: 1. Cardiomegaly with interval improvement in the small bilateral pleural effusions and bibasilar densities. 2. 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 Electronically signed by: Eliseo Krishnan M.D. 07/10/2019 2:[address] head/brain wo con CLINICAL HISTORY: Acute change in mental status COMPARISON STUDY: 11/26/2017 TECHNIQUE: Axial CT of the brain is performed from the vertex to the skull base. IV contrast was not administered for this examination. A dose lowering technique was utilized adhering to the principles of ALARA. CT DOSE: 1228.53 mGy.cm FINDINGS: No intra or extra-axial mass lesions are visualized. There is no CT evidence of acute cortical infarction. There is no evidence of midline shift. There is no acute hemorrhage. No calvarial fractures are visualized. There are patchy white matter hypodensities likely on a small vessel basis. There are tiny lacunar infarcts in the region of the right basal ganglia. There is no evidence of pathologic ventricular dilatation. There is a chronic small left mastoid effusion IMPRESSION: No acute intracranial findings Electronically signed by: Lazarus Murry M.D. 07/10/2019 2:[address] abd pelvis IV con only CT DOSE: 2831.56 mGy.cm HISTORY: Nausea. Vomiting. Mental status change TECHNIQUE: Multiaxial CT images of the abdomen and pelvis were performed following the use of intravenous contrast. A dose lowering technique was utilized adhering to the principles of ALARA. COMPARISON STUDY: 08/09/2017 FINDINGS: Bilateral pleural effusions moderately diminished from the prior exam. Superimposed mild bibasilar atelectatic change. Mild cardiac enlargement. No evidence currently for a significant pericardial effusion. The liver spleen and pancreas are grossly unremarkable in terms of general morphology. Several small gallstones versus sludge balls within the lumen of the gallbladder are present. The bowel pattern overall is nonobstructive. Moderate atrophy of the kidneys. Left renal cysts considered unchanged from the prior study. Mildly progressive adenopathy compared to the prior study. Para-aortic adenopathy now extends to 4 cm in maximum conglomerate amarilis dimension. Multiple smaller nodes are present. Bladder is midline. IMPRESSION: 1. Moderately progressive periaortic, mesenteric, and to a lesser extent pelvic adenopathy. 2. Improving bilateral pleural effusions with mild residual. 3. Nonobstructive bowel pattern. 4. Several small gallstones unchanged compared to the prior exam. The above report was generated using voice recognition software. It may contain grammatical, syntax or spelling errors. Electronically signed by: Lex Hewitt M.D. 07/10/2019 2:[address] OF THE CHEST WITH IV CONTRAST CLINICAL HISTORY: Altered mental status. COMPARISON STUDY: PET/CT February 25, 2019. Chest radiograph performed earlier today. TECHNIQUE: Following IV administration of 93 mL of Optiray-320, helical axial images of the chest were obtained. Sagittal and coronal reconstructions were viewed as well as maximal intensity projections on an independent 3-D workstation. Automated exposure control was utilized for the study. A dose lowering technique was utilized adhering to the principles of ALARA. FINDINGS: Left subclavian pacer is in place. There is moderate cardiomegaly. Prosthetic aortic valve is noted. There is no pericardial effusion. No enlarged mediastinal or axillary lymph nodes are noted. There is a mildly enlarged left supraclavicular lymph node on image 21 of 266 that measures 1.3 cm in short axis diameter. This has increased in size since PET/CT of February 25, 2019. Small right pleural effusion is noted. Pleural effusions have significantly improved since exam of February 25, 2019. There is no pneumothorax. There is no consolidation to suggest pneumonia. Several sclerotic metastases, including a right fifth rib lesion are again noted. These are similar to prior PET/CT of February 25, 2019. Th ere is a subacute fracture of the lateral right fifth rib. There is also a subacute nondisplaced right fourth rib fracture. No acute thoracic spine fracture is noted. The abdomen and pelvis will be reported separately. Gallstones within the gallbladder are noted. IMPRESSION: 1. Small right pleural effusion, significantly decreased in size since prior PET/CT of February 25, 2019. Resolution of the left pleural effusion. 2. Interval development of left supraclavicular lymphadenopathy which is susp icious for amarilis spread of disease given history of prostate cancer. 3. Subacute right fourth and fifth rib fractures. No pneumothorax. 4. No change in sclerotic skeletal metastases. Electronically signed by: Camron Busch M.D. 07/10/2019 2:49 PM ECG Data Attestation: I personally reviewed and interpreted this ECG as follows: Indication: + altered mental status Rate (beats per minute): 76 Rhythm: + normal sinus ECG Intervals/blocks: + Right Bundle branch block ECG [place]: + Left axis deviation ECG ST segments: no ST elevation ECG Findings: no PACs and no PVCs Comparison ECG Date: from (11/26/17) Change: the following changes noted (Left axis deviation is new) Blood Pressure Blood Pressure Findings: Low blood pressure Blood Pressure Disposition: further management by hospitalist PERICO Narrative Patient presented here due to abrupt change in mental status. had stated he seemed in his usual state of health this morning. Patient with no other recent change to his overall health or medications. Patient brought in combative, fighting with staff and security, unable to be redirected or coached. Initially patient was given Ativan after IV started. This did not seem to help and patient was given additional IM Haldol. After 10 mg of IM Haldol and 2 mg of IV Ativan patient still combative and fighting. Patient then given additional Versed which did then help in calming the patient down. It took quite some time to establish the IV and titrate up medications in order to adequately calm the patient for additional evaluation and emergent head CT to rule out acute intracranial process. While patient was in CT, we opted to perform additional CT imaging due to the difficult nature in obtaining a level of cooperation and the patient. Patient CTs did not reveal any acute pathology. Additional labs continued to return, and while patient had a markedly elevated lactic acid, the rest of his labs were reassuring. Due to the elevated lactic acid despite no fever or recent infection, blood cultures were drawn and sent, patient started on vancomycin and cefepime. Following additional medication, a Gutierrez catheter was inserted and UA sent. Patient's and additional family kept up-to-date on results so far. It took some time to track down the admitting hospitalist, however case eventually discussed with him. Patient afebrile and other vital signs stable. I do feel patient requires additional inpatient evaluation and management, monitoring until cultures result, and likely additional MRI to evaluate for other pathology. I do not suspect bacterial meningitis/encephalitis at this time. No evidence of intracerebral hemorrhage or acute CVA. Significant time spent at bedside and continuing to recheck the patient and update family on his condition due to severity of altered mentation and initial agitation. Impression & Plan Altered mental status, Elevated lactic acid level, Prostate cancer metastatic to bone, Dehydration Discharge Plan Visit Data *Final* Discharge Date/Time: 07/10/19 18:25 Chief Complaint: Altered Mental Status ED Provider: Virginia Gómez Discharge Problem: Altered mental status, Elevated lactic acid level, Prostate cancer metastatic to bone, Dehydration Patient Disposition: Admitted As Inpatient Discharge Instructions Interventions: ED Discharge Assessment Last Done: 07/10/19 18:25 Discharge Problem: Altered mental status Qualifiers: Altered mental status type: unspecified Qualified Code(s): R41.82 - Altered mental status, unspecified The scribe's documentation has been prepared under my direction and personally reviewed by me in its entirety. I confirm that the note above accurately reflects all work, treatment, procedures, and medical decision making performed by me.
[2019-07-10] MEDS ORDERED: SODIUM CHLORIDE 0.9% 1000ML 1,000 ML IV ONE ×2 (14:23→15:46)
[2019-07-10] MEDS ORDERED: CEFEPIME 2,000 MG/20 ML VIAL IV STA (14:32)
[2019-07-10] MEDS ORDERED: VANCOMYCIN CONSULT ACTIVE PRN (14:32)
[2019-07-10] MEDS ORDERED: VANCOMYCIN HCL 2,000 MG in SODIUM CHLORIDE 0.9% 500 ML IV ONE (14:32)
--- NOTE | 2019-07-10 14:34 | CT Scan Report ---
CT abd pelvis IV con only CT DOSE: 2831.56 mGy.cm HISTORY: Nausea. Vomiting. Mental status change TECHNIQUE: Multiaxial CT images of the abdomen and pelvis were performed following the use of intrave nous contrast. A dose lowering technique was utilized adhering to the principles of ALARA. COMPARISON STUDY: 08/09/2017 FINDINGS: Bilateral pleural effusions moderately diminished from the prior exam. Superimposed mild bi basilar atelectatic change. Mild cardiac enlargement. No evidence currently for a significant pericar dial effusion. The liver spleen and pancreas are grossly unremarkable in terms of general morphology. Several small gallstones versus sludge balls within the lumen of the gallbladder are present. The bowel pattern overall is nonobstructive. Moderate atrophy of the kidneys. Left renal cysts consid ered unchanged from the prior study. Mildly progressive adenopathy compared to the prior study. Para-aortic adenopathy now extends to 4 cm in maximum conglomerate amarilis dimension. Multiple smaller nodes are present. Bladder is midline. IMPRESSION: 1. Moderately progressive periaortic, mesenteric, and to a lesser extent pelvic adenopathy. 2. Improving bilateral pleural effusions with mild residual. 3. Nonobstructive bowel pattern. 4. Several small gallstones unchanged compared to the prior exam. The above report was generated using voice recognition software. It may contain grammatical, syntax or spelling errors. Electronically signed by: Lex Hewitt M.D. 07/10/2019 2:33 PM
--- NOTE | 2019-07-10 14:51 | CT Scan Report ---
CT OF THE CHEST WITH IV CONTRAST CLINICAL HISTORY: Altered mental status. COMPARISON STUDY: PET/CT February 25, 2019. Chest radiograph performed earlier today. TECHNIQUE: Following IV administration of 93 mL of Optiray-320, helical axial images of the chest we re obtained. Sagittal and coronal reconstructions were viewed as well as maximal intensity projectio ns on an independent 3-D workstation. Automated exposure control was utilized for the study. A dose lowering technique was utilized adhering to the principles of ALARA. FINDINGS: Left subclavian pacer is in place. There is moderate cardiomegaly. Prosthetic aortic valve is noted. There is no pericardial effusion. No enlarged mediastinal or axillary lymph nodes are note d. There is a mildly enlarged left supraclavicular lymph node on image 21 of 266 that measures 1.3 cm in short axis diameter. This has increased in size since PET/CT of February 25, 2019. Small right pleura l effusion is noted. Pleural effusions have significantly improved since exam of February 25, 2019. There is no pneumothorax. There is no consolidation to suggest pneumonia. Several sclerotic metastases, in cluding a right fifth rib lesion are again noted. These are similar to prior PET/CT of February 25, 2019. There is a subacute fracture of the lateral right fifth rib. There is also a subacute nondisplaced r ight fourth rib fracture. No acute thoracic spine fracture is noted. The abdomen and pelvis will be r eported separately. Gallstones within the gallbladder are noted. IMPRESSION: 1. Small right pleural effusion, significantly decreased in size since prior PET/CT of February 25, 2019. Resolution of the left pleural effusion. 2. Interval development of left supraclavicular lymphadenopathy which is suspicious for amarilis spread of disease given history of prostate cancer. 3. Subacute right fourth and fifth rib fractures. No pneumothorax. 4. No change in sclerotic skeletal metastases. Electronically signed by: Camron Busch M.D. 07/10/2019 2:49 PM
[2019-07-10 15:05] LABS: Appearance Urine Clear (Clear); Bilirubin Urine Negative (Negative); Blood Urine Negative (Negative); Color Urine Yellow; Glucose Urine UA Negative (Negative); Ketones Urine Negative (Negative); Leukocyte Esterase Urine Negative (Negative); Nitrite Urine Negative (Negative); Protein Urine Negative (Negative); Specific Gravity Urine 1.016 (1.000-1.030); Urobilinogen Urine Negative (Negative)
[2019-07-10] MEDS ORDERED: MIDAZOLAM HCL 5 MG/ML 1 ML VIAL IV PRN (17:10)
--- NOTE | 2019-07-10 17:24 | History & Physical Report ---
Date of Service July 10, 2019 Assessment & Plan (1) Altered mental status: 84-year-old male was admitted on 10 July 2019 for altered mental status. AMS: Acute onset without immediate known cause. Early workup only notable for elevated lactate, possibly related to malignancy vs mild hypovolemia. No overt evidence of cardiac failure or sepsis. Some of his aphasia-type symptoms suggest a possible neuro cause, though not sure how that would elevate the lactate. - See neuro notes in November 2017 for workup of TIA vs CVA vs encephalopathy. Some aphasia at that time as well. - In ED: --- Afebrile, not tachycardic or tachypneic. Blood pressure a bit labile. Normal room SpO2. WBC 9, procalcitonin negative. Blood culture sent. AG 8. TSH normal. TnI negative. EKG is NSR 76 with RBBB and prolonged QTc 497. UA clear. CT head non-acute. CT chest and a/p noted various incidental findings (see full reports). --- However, lactate 5.6. - In ED, received combination of Haldol and Ativan with reported minimal improvement in AMS. Versed was more successful. Started on vancomycin and cefepime. Given normal saline IVF bolus. - Will keep on empiric antibiotics. Check urine culture and recheck lactate. Will obtain LP richard, send related studies. [Will consider antivirals depending on results of CSF.] Ordered MRI brain with/without contrast and MRA brain. Dysphagia screening assessment. Consult neurology. Elevated creatinine: Admit Cr 1.25, with comparisons around 0.8. BUN 32. - Given IVF in ED. Will continue maintenance IVF and recheck in AM. Anemia: Admit hemoglobin 11.3, similar to prior. No evidence of acute bleeding. Monitor. Hyponatremia: Admit sodium 133. - Given IVF in ED and placed on some maintenance IVF. Recheck in AM. Prolonged QTc: Admit EKG QTc 497. Will try to limit new QT prolonging medications. Ongoing medical issues: - Metastatic prostate cancer: Continue home Lupron (is monthly), Flomax, tolterodine, and valsartan. says he is followed by Dr. Blakely ([facility]) with next planned chemo on Saturdayc. --- Will hold home prn Zofran due to prolonged QTc. - Hypertension, hyperlipidemia, diastolic CHF: Continue home atorvastatin, clonidine, Lasix, metoprolol. November 2017 echo noted EF 50-55%, grade I diastolic dysfunction. - GERD: Continue home pantoprazole. - Depression: Continue home venlafaxine. Code status: Full code (on discussion with family). Diet: Regular, low-salt. DVT prophy: Lovenox 30 mg daily. PT/OT: Deferred. Disbo: Admit to PCU. 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 The entire history is based on the family's witnessed account as well as the ED note/discussions with the ED physician. - Per the at bedside, the patient has been in his completely normal state of health for the past few days. Specifically, says that he has not been complaining of anything. No known recent fevers or illness, vomiting or diarrhea, or changes in normal activities. - This morning he accompanied her to medical appointment. Roughly around 11:30 AM she spoke with him but he replied in a confused manner. He then told someone that he had to void and had the sudden urge to cry. He also then rather suddenly began to "flail his arms around", so he was assisted by medical clinic staff prior to transfer here. No reported falls during this time. - On arrival to the ED, patient was noted to being very agitated requiring multiple acute sedative medications as well as brief restraints. Ultimately he did calm down and the restraints were quickly removed. - At the time of this H&P, patient is awake, alert to self and some of his family members, as well as location. He follows commands by squeezing both hands and moving his feet. He knows he is in the hospital but does not know why. However, there are some verbal symptoms such as he knows the name of his son but not of his (calls his by the dog's name) and makes some random comments such as "picker / packer the pizza off the floor". He denies any current pain. - Past medical history includes metastatic prostate cancer, hypertension, duodenal ulcers and GI bleed, diastolic CHF, prior severe aortic stenosis (now s/p TAVR), aspiration pneumonia, depression, BPH, GERD, carotid artery stenosis - Past surgical history includes TAVR, pacemaker placement, right total knee replacement, umbilical hernia repair, left inguinal hernia repair, right femur fracture surgery, cataracts. - Social history includes quitting cigar smoking at age 44. Quit drinking alcohol years ago. Lives at home with family. Allergies Allergy/AdvReac Type Severity Reaction Status Date / Time diphtheria toxoid,fluid Allergy Intermediate SWELLING,BLISTERS,REDNESS,HIVES Verified 07/10/19 13:53 FROM ADACEL Pertussis Vaccines Allergy Intermediate SWELLING,HIVES,REDNESS,BLISTERS Verified 07/10/19 13:53 FROM ADACEL tetanus toxoid, adsorbed Allergy Intermediate SWELLING,BLISTERS,REDNESS,HIVES Verified 07/10/19 13:53 FROM ADACEL latex Allergy Unknown SHORTNESS Verified 07/10/19 13:53 OF BREATH Home Medications Home Medications Medication Instructions Recorded Confirmed Type atorvastatin [Lipitor] 40 mg PO PM #0 tab 07/25/16 07/10/19 History tamsulosin [Flomax] 0.4 mg PO HS #0 07/25/16 07/10/19 History venlafaxine [Effexor XR] 150 mg PO DAILY #0 cap 07/25/16 07/10/19 History albuterol sulfate [Ventolin HFA] 1 puff INHALATION Q6H PRN #1 10/03/17 07/10/19 History inhaler cholecalciferol (vitamin D3) 4,000 unit PO DAILY 30 Days #6 tab 10/03/17 07/10/19 History [Vitamin D3] furosemide [Lasix] 20 mg PO DAILY #0 tab 10/03/17 07/10/19 History ondansetron HCl [Zofran] 4 mg PO TID PRN #0 tab 10/03/17 07/10/19 History leuprolide [Lupron Depot] 3.75 mg IM MONTHLY #0 11/06/17 07/10/19 History cyanocobalamin (vitamin B-12) 1,000 mcg SUBCUT MONTHLY #0 11/26/17 07/10/19 History clonidine HCl 0.1 mg PO BID 07/10/19 07/10/19 History metoprolol succinate 50 mg PO DAILY 07/10/19 07/10/19 History pantoprazole 40 mg PO DAILY 07/10/19 07/10/19 History tolterodine 4 mg PO HS 07/10/19 07/10/19 History valsartan 320 mg PO DAILY 07/10/19 07/10/19 History Past Med/Surg History Medical History Acute diastolic heart failure Anemia (Chronic ~01/2012) GI bleed Hypertension (Chronic 01/30/12) Hypokalemia Left ventricular diastolic dysfunction (Acute) Prostate CA (Acute) Stroke UTI (urinary tract infection) Family History Other Family history non-contributory Social History Preferred Language: Faroese marital status: Smoking Status: Unknown if ever smoked Review of Systems Review of Systems: Unobtainable due to cognitive status Unable to obtain due to altered mental status. Physical Exam Physical Exam: GENERAL: Alert to self and location, appears still a bit sedated (i.e. hard to keep eyes open), but not in immediate distress. HENT: Normocephalic, atraumatic. Oropharynx unremarkable. EYES: Normal conjunctiva. Sclera non-icteric. NECK: Inspection normal. Supple and full ROM. No nuchal rigidity. CARDIAC: +S1S2 RRR, no murmurs. RESPIRATORY: Clear to auscultation. No wheezes or rales. Normal respiratory effort. GI: +BS, soft, non-distended. No tenderness to palpation. No rebound or guarding. EXTREMITIES: No pedal edema or calf tenderness. He will move his arms a bit spontaneously. Will move his bilateral feet on command. Bilateral forearms have diffuse bruising with some small skin tears but no active bleeding. NEURO: Presently following commands with equal strong oyster cultivator strength bilaterally. Remains confused with questionable verbal aphasia. Lines: Gutierrez catheter placed. Results & Data Vital Signs (Past 12 Hours) Vital Signs Temp Pulse Resp BP Pulse Ox 07/10/19 16:06 76 20 128/54 L 100 07/10/19 15:46 77 22 118/58 L 100 07/10/19 15:30 73 19 129/57 L 99 07/10/19 15:15 72 20 112/54 L 94 07/10/19 15:00 73 19 104/55 L 95 07/10/19 14:45 79 22 125/57 L 100 07/10/19 14:31 76 19 99/42 L 97 07/10/19 14:30 78 19 92 07/10/19 14:01 92 H 20 158/87 H 94 07/10/19 14:00 96 H 94 07/10/19 13:46 96 H 143/91 H 98 07/10/19 13:39 94 H 21 150/128 H 99 07/10/19 13:30 96 H 23 99 07/10/19 13:27 96 H 19 123/80 99 07/10/19 13:16 93 H 22 79/61 L 100 07/10/19 13:01 92 H 18 151/94 H 100 07/10/19 13:00 91 H 19 99 07/10/19 12:54 99 H 24 97 07/10/19 12:14 37.2 C 88 17 151/94 H 100 Laboratory Results 07/10/19 07/10/19 07/10/19 Range/Units 14:51 12:43 12:42 WBC (4.8-10.8) K/uL RBC (4.7-6.1) M/uL Hgb (14.0-18.0) g/dL POC Hgb (14.0-18.0) g/dl Hct (42-52) % POC Hct (42-52) % MCV (80-100) fL MCH (25-34) pg MCHC (32-36) g/dL RDW Std Deviation (36.4-46.3) fL RDW Coeff of Chasity (11.5-14.5) % Plt Count (130-400) K/uL MPV (7.4-10.4) fL Immature Gran % (Auto) % Neut % (Auto) % Lymph % (Auto) % Craig % (Auto) % Eos % (Auto) % Baso % (Auto) % Immature Gran # (Auto) (0.00-0.02) K/uL Neut # (Auto) (1.4-6.5) K/uL Lymph # (Auto) (1.2-3.4) K/uL Craig # (Auto) (0.11-0.59) K/uL Eos # (Auto) (0-0.5) K/uL Baso # (Auto) (0-0.2) K/uL PT (9.0-12.0) Seconds INR (0.9-1.1) POC Sodium (135-144) mEq/L Sodium (136-145) mmol/L POC Potassium (3.3-5.0) mEq/L Potassium (3.5-5.1) mmol/L POC Chloride (101-112) mEq/L Chloride (98-107) mmol/L Carbon Dioxide (21-32) mmol/L POC Total CO2 (24-31) mEq/l Anion Gap (3-11) POC Anion Gap (16-25) mmol/L POC BUN (7-18) mg/dl BUN (7-18) mg/dl Creatinine (0.6-1.4) mg/dl POC Creatinine (0.6-1.3) mg/dl Est Cr Clr Drug Dosing Est GFR ( Amer) Est GFR (Non-Af Amer) BUN/Creatinine Ratio (10-20) Glucose (70-99) mg/dl POC Glucose (70-99) POC Glucose (other) (70-99) mg/dl Lactate 5.6 H* (0.4-2.0) mmol/L Calcium (8.5-10.1) mg/dl POC Ioniz Calcium Yordan (1.12-1.32) mmol/l Magnesium (1.8-2.4) mg/dl Total Bilirubin (0.2-1) mg/dl AST (15-37) U/L ALT (12-78) U/L Alkaline Phosphatase (45-117) U/L Troponin I (0-0.045) ng/ml Total Protein (6.4-8.2) gm/dl Albumin (3.4-5.0) gm/dl Globulin (2.5-4.0) gm/dl Albumin/Globulin Ratio (0.9-2) Lipase (73-393) U/L Procalcitonin < 0.05 (0-0.5) ng/ml TSH (0.300-4.500) uIu/ml Urine Color Yellow Urine Appearance Clear (Clear) Urine pH 8.0 H (4.5-7.5) Ur Specific Verner 1.016 (1.000-1.030) Urine Protein Negative (Negative) Urine Glucose (UA) Negative (Negative) Urine Ketones Negative (Negative) Urine Blood Negative (Negative) Urine Nitrite Negative (Negative) Urine Bilirubin Negative (Negative) Urine Urobilinogen Negative (Negative) Ur Leukocyte Esterase Negative (Negative) 07/10/19 07/10/19 07/10/19 Range/Units 12:42 12:42 12:42 WBC 9.68 (4.8-10.8) K/uL RBC 3.53 L (4.7-6.1) M/uL Hgb 11.3 L (14.0-18.0) g/dL POC Hgb (14.0-18.0) g/dl Hct 32.9 L (42-52) % POC Hct (42-52) % MCV 93.2 (80-100) fL MCH 32.0 (25-34) pg MCHC 34.3 (32-36) g/dL RDW Std Deviation 56.2 H (36.4-46.3) fL RDW Coeff of Chasity 16.5 H (11.5-14.5) % Plt Count 162 (130-400) K/uL MPV 9.0 (7.4-10.4) fL Immature Gran % (Auto) 2.3 % Neut % (Auto) 61.4 % Lymph % (Auto) 26.1 % Craig % (Auto) 9.5 % Eos % (Auto) 0.5 % Baso % (Auto) 0.2 % Immature Gran # (Auto) 0.22 H (0.00-0.02) K/uL Neut # (Auto) 5.94 (1.4-6.5) K/uL Lymph # (Auto) 2.53 (1.2-3.4) K/uL Craig # (Auto) 0.92 H (0.11-0.59) K/uL Eos # (Auto) 0.05 (0-0.5) K/uL Baso # (Auto) 0.02 (0-0.2) K/uL PT 11.9 (9.0-12.0) Seconds INR 1.2 H (0.9-1.1) POC Sodium (135-144) mEq/L Sodium 133 L (136-145) mmol/L POC Potassium (3.3-5.0) mEq/L Potassium 4.6 (3.5-5.1) mmol/L POC Chloride (101-112) mEq/L Chloride 101 (98-107) mmol/L Carbon Dioxide 24 (21-32) mmol/L POC Total CO2 (24-31) mEq/l Anion Gap 8.0 (3-11) POC Anion Gap (16-25) mmol/L POC BUN (7-18) mg/dl BUN 32 H (7-18) mg/dl Creatinine 1.25 (0.6-1.4) mg/dl POC Creatinine (0.6-1.3) mg/dl Est Cr Clr Drug Dosing Not Reportable Est GFR ( Amer) 60.5 Est GFR (Non-Af Amer) 52.2 BUN/Creatinine Ratio 25.9 H (10-20) Glucose 80 (70-99) mg/dl POC Glucose (70-99) POC Glucose (other) (70-99) mg/dl Lactate (0.4-2.0) mmol/L Calcium 8.7 (8.5-10.1) mg/dl POC Ioniz Calcium Yordan (1.12-1.32) mmol/l Magnesium 2.1 (1.8-2.4) mg/dl Total Bilirubin 0.8 (0.2-1) mg/dl AST 22 (15-37) U/L ALT 26 (12-78) U/L Alkaline Phosphatase 72 (45-117) U/L Troponin I < 0.015 (0-0.045) ng/ml Total Protein 6.6 (6.4-8.2) gm/dl Albumin 3.0 L (3.4-5.0) gm/dl Globulin 3.6 (2.5-4.0) gm/dl Albumin/Globulin Ratio 0.8 L (0.9-2) Lipase 64 L (73-393) U/L Procalcitonin (0-0.5) ng/ml TSH 4.140 (0.300-4.500) uIu/ml Urine Color Urine Appearance (Clear) Urine pH (4.5-7.5) Ur Specific Verner (1.000-1.030) Urine Protein (Negative) Urine Glucose (UA) (Negative) Urine Ketones (Negative) Urine Blood (Negative) Urine Nitrite (Negative) Urine Bilirubin (Negative) Urine Urobilinogen (Negative) Ur Leukocyte Esterase (Negative) 07/10/19 07/10/19 Range/Units 12:40 12:29 WBC (4.8-10.8) K/uL RBC (4.7-6.1) M/uL Hgb (14.0-18.0) g/dL POC Hgb 10.5 L (14.0-18.0) g/dl Hct (42-52) % POC Hct 31 L (42-52) % MCV (80-100) fL MCH (25-34) pg MCHC (32-36) g/dL RDW Std Deviation (36.4-46.3) fL RDW Coeff of Chasity (11.5-14.5) % Plt Count (130-400) K/uL MPV (7.4-10.4) fL Immature Gran % (Auto) % Neut % (Auto) % Lymph % (Auto) % Craig % (Auto) % Eos % (Auto) % Baso % (Auto) % Immature Gran # (Auto) (0.00-0.02) K/uL Neut # (Auto) (1.4-6.5) K/uL Lymph # (Auto) (1.2-3.4) K/uL Craig # (Auto) (0.11-0.59) K/uL Eos # (Auto) (0-0.5) K/uL Baso # (Auto) (0-0.2) K/uL PT (9.0-12.0) Seconds INR (0.9-1.1) POC Sodium 132 L (135-144) mEq/L Sodium (136-145) mmol/L POC Potassium 4.7 (3.3-5.0) mEq/L Potassium (3.5-5.1) mmol/L POC Chloride 99 L (101-112) mEq/L Chloride (98-107) mmol/L Carbon Dioxide (21-32) mmol/L POC Total CO2 24 (24-31) mEq/l Anion Gap (3-11) POC Anion Gap 15.0 L (16-25) mmol/L POC BUN 30 H (7-18) mg/dl BUN (7-18) mg/dl Creatinine (0.6-1.4) mg/dl POC Creatinine 1.2 (0.6-1.3) mg/dl Est Cr Clr Drug Dosing Est GFR ( Amer) Est GFR (Non-Af Amer) BUN/Creatinine Ratio (10-20) Glucose (70-99) mg/dl POC Glucose 89 (70-99) POC Glucose (other) 81 (70-99) mg/dl Lactate (0.4-2.0) mmol/L Calcium (8.5-10.1) mg/dl POC Ioniz Calcium Yordan 1.16 (1.12-1.32) mmol/l Magnesium (1.8-2.4) mg/dl Total Bilirubin (0.2-1) mg/dl AST (15-37) U/L ALT (12-78) U/L Alkaline Phosphatase (45-117) U/L Troponin I (0-0.045) ng/ml Total Protein (6.4-8.2) gm/dl Albumin (3.4-5.0) gm/dl Globulin (2.5-4.0) gm/dl Albumin/Globulin Ratio (0.9-2) Lipase (73-393) U/L Procalcitonin (0-0.5) ng/ml TSH (0.300-4.500) uIu/ml Urine Color Urine Appearance (Clear) Urine pH (4.5-7.5) Ur Specific Verner (1.000-1.030) Urine Protein (Negative) Urine Glucose (UA) (Negative) Urine Ketones (Negative) Urine Blood (Negative) Urine Nitrite (Negative) Urine Bilirubin (Negative) Urine Urobilinogen (Negative) Ur Leukocyte Esterase (Negative) Medications Administered Ioversol (Optiray 320 100ml) 93 ml IV ONCE PRN PRN Reason: Interaction Checking Stop: 07/14/19 14:14 Last Admin: 07/10/19 14:15 Dose: 93 ml Documented by: [id number] Discontinued Medications Haloperidol Lactate (Haldol) 5 mg IV NOW STA Stop: 07/10/19 12:40 Last Admin: 07/10/19 12:53 Dose: 5 mg Documented by: [id number] Haloperidol Lactate (Haldol) 5 mg IM NOW STA Stop: 07/10/19 13:29 Last Admin: 07/10/19 13:33 Dose: 5 mg Documented by: [id number] Lorazepam (Ativan) 2 mg in 4 mls @ 4 mls/min IV NOW STA Stop: 07/10/19 12:40 Last Admin: 07/10/19 12:46 Dose: 4 mls/min Documented by: [id number] Sodium Chloride (Nss 1000ml) 1,000 mls @ 999 mls/hr IV .Q1H1M ONE Stop: 07/10/19 15:23 Last Infusion: 07/10/19 15:50 Dose: 0 mls/hr Documented by: [id number] Admin: 07/10/19 14:56 Dose: 999 mls/hr Documented by: [id number] Cefepime HCl (Maxipime) 2,000 mg in 20 mls @ 5 mls/min IV NOW STA Stop: 07/10/19 14:35 Last Admin: 07/10/19 15:43 Dose: 5 mls/min Documented by: [id number] Vancomycin HCl 2,000 mg/ (Sodium Chloride) 540 mls @ 200 mls/hr IV NOW ONE Stop: 07/10/19 17:13 Last Admin: 07/10/19 15:49 Dose: 200 mls/hr Documented by: [id number] Sodium Chloride (Nss 1000ml) 1,000 mls @ 999 mls/hr IV .Q1H1M ONE Stop: 07/10/19 16:46 Last Infusion: 07/10/19 17:07 Dose: 0 mls/hr Documented by: [id number] Admin: 07/10/19 16:04 Dose: 999 mls/hr Documented by: [id number] Lorazepam (Ativan) Confirm Administered Dose 2 mg .ROUTE .STK-MED ONE Stop: 07/10/19 12:43 Last Admin: 07/10/19 13:19 Dose: Not Given Documented by: [id number] Midazolam HCl (Versed) 2 mg IV NOW STA Stop: 07/10/19 13:55 Last Admin: 07/10/19 13:59 Dose: Not Given Documented by: [id number] Midazolam HCl (Versed) Confirm Administered Dose 2 mg .ROUTE .STK-MED ONE Stop: 07/10/19 13:59 Last Admin: 07/10/19 13:59 Dose: 2 mg Documented by: [id number] Midazolam HCl (Versed) 2 mg IV NOW STA Stop: 07/10/19 14:51 Last Admin: 07/10/19 14:55 Dose: Not Given Documented by: [id number] Midazolam HCl (Versed) Confirm Administered Dose 2 mg .ROUTE .STK-MED ONE Stop: 07/10/19 14:53 Last Admin: 07/10/19 14:53 Dose: 2 mg Documented by: [id number] Code Status & VTE Plan Code Status Full code VTE Prophylaxis Plan VTE Prophylaxis will be ordered: Yes Supervising Physician Co-Signing Physician Notes I personally interviewed and examined the patient. I agree with history of present illness , physical exam and plan mentioned by medical operations supervisor above, I also performed my own history taking and examination. Together with medical operations supervisor Dr. Johns we formulated the complete plan for this patient Past medical history and review of system has been obtained by myself I reviewed all pertinent labs and studies Reviewed current medications I discussed and formulated of the assessment and plan mentioned above. Please refer to the Summary mentioned below. 84-year-old man With past medical history significant for chronic kidney disease stage II, chronic anemia, prostate cancer with metastasis to lymph nodes currently on chemotherapy, essential hypertension, dyslipidemia, diastolic congestive heart failure, GERD disease, depression and obesity was in his regular state of health until today, his was having a doctor's appointment and he was waiting in the waiting room, suddenly he had acute change in mental status, confusion, behavioral change he was brought to the ED, he was making very unusual comments like asking his to picker / packer the pizza of the floor, calling her with her dog name, he was moving all extremities upper and lower did not appear to have any neck stiffness or photophobia, did not have any symptoms prior to that. Did not have similar condition in the past. Initial work-up was pretty much negative and nothing could explain his acute change in behavior and mental status, so MRI brain with and without contrast was ordered MRA brain was ordered, lumbar puncture was ordered to rule out any viral meningitis, neurology consult was placed, currently patient is hemodynamically stable. General Appearance: Obese, confused, in mild acute distress Eyes: normal Sclerae, extraocular muscle intact ENT: hearing grossly normal Neck: supple Respiratory/Chest: normal air entry bilateral ,no respiratory distress, no accessory muscle use Cardiovascular: regular rate, rhythm, no murmur Abdomen: non tender, soft, no masses Extremities: no edema musculoskeletal: no significant swelling or inflammation in any joint Neurologic/Psychiatric: Lethargic, confused, he still answers simple questions and follows simple commands Skin: normal color, warm/dry, no rash Jose Angel Ayala MD, [facility] Resident Activity Tracking Resident Involvement: Resident Care Provided Care Provided: Adult Hospital Medicine (1) Altered mental status Altered mental status type: unspecified Qualified Code(s): R41.82 - Altered mental status, unspecified
--- NOTE | 2019-07-10 18:31 | Billing Data ---
Date of Service July 10, 2019 Coding Level of Care Code 01119 Initial Inpt Care Lvl 3
--- NOTE | 2019-07-10 18:58 | Fluoroscopy Report ---
FLUOROSCOPICALLY GUIDED LUMBAR PUNCTURE CLINICAL HISTORY: Altered mental status. FLUOROSCOPY TIME: 22 seconds NUMBER OF FLUOROSCOPIC IMAGES: 1 PROCEDURE: The procedure, risks and benefits were discussed with the patient's due to patient's altered mental status. The discussed risks included the risk of spinal headache, bleeding and infect ion. The patient's agreed to the procedure and informed written consent was obtained. The proced ure was performed by Dr. Busch following a timeout. The right L4-L5 interlaminar space was target ed. Skin overlying the space was prepped and draped in sterile fashion and local anesthesia was achie ephraim with 1% lidocaine. Under intermittent fluoroscopic guidance, a 5 inch 22-gauge spinal needle was directed into the thecal sac. There was immediate return of cerebrospinal fluid which was blood tinge d. CSF quickly clear. A total of 8 cc of CSF was collected in 4 vials and sent to laboratory as order ed. The needle was removed. The patient tolerated the procedure well and no immediate complications o f were evident. IMPRESSION: Successful fluoroscopically guided lumbar puncture with collection of 8 cc of cerebrospin al fluid which was sent to the laboratory for analysis as ordered. CSF was initially blood-tinged but quickly clear. Electronically signed by: Camron Busch M.D. 07/10/2019 6:49 PM
[2019-07-10 19:12] LABS: Total Protein CSF 230.2 mg/dl (15-45)
[2019-07-10 19:20] LABS: Appearance CSF Bloody; CSF Count Tube # 3; Color CSF Red; Red Blood Cell CSF (A) 7350 /uL (0-); Red Blood Cell CSF (B) 7450 /uL (0-); White Blood Cell CSF (B) 8 /uL (0-5)
[2019-07-10 19:21] LABS: CSF Xanthrochromic No xanthochromia; White Blood Cell CSF (A) 6 /uL (0-5)
[2019-07-10] MEDS ORDERED: ASPIRIN 81 MG CHEW PO ONE (19:45)
--- NOTE | 2019-07-10 20:33 | Pharmacy Report ---
Pharmacy Abx Initial Consult - Date of Service July 10, 2019 - Pharmacy Dosing Scope Date of Consult: 07/10/19 Consultation requested by: Dr. Mtailde Ventura Pharmacy is consulted to initiate Vancomycin IV dosing therapy, order appropriate labs and adjust drug dose/frequency. - Subjective The patient is a 84 year old M admitted on 07/10/19 17:10 with acute mental status changes, s/p lumbar puncture to r/o meningitis. Empirically started iv abx to cover possible meningitis - Objective Height: 5 ft 9.37 in Weight: 105.6 kg Vital Signs (Past 12hrs): Vital Signs Temp Pulse Pulse Resp BP BP Pulse Ox 07/10/19 18:55 36.6 C 76 10 L 168/91 H 07/10/19 18:25 85 17 172/67 H 100 07/10/19 17:31 85 17 172/67 H 100 07/10/19 17:01 79 14 157/68 H 98 07/10/19 16:32 78 22 110/71 100 07/10/19 16:06 76 20 128/54 L 100 07/10/19 15:46 77 22 118/58 L 100 07/10/19 15:30 73 19 129/57 L 99 07/10/19 15:15 72 20 112/54 L 94 07/10/19 15:00 73 19 104/55 L 95 07/10/19 14:45 79 22 125/57 L 100 07/10/19 14:31 76 19 99/42 L 97 07/10/19 14:30 78 19 92 07/10/19 14:01 92 H 20 158/87 H 94 07/10/19 14:00 96 H 94 07/10/19 13:46 96 H 143/91 H 98 07/10/19 13:39 94 H 21 150/128 H 99 07/10/19 13:30 96 H 23 99 07/10/19 13:27 96 H 19 123/80 99 07/10/19 13:16 93 H 22 79/61 L 100 07/10/19 13:01 92 H 18 151/94 H 100 07/10/19 13:00 91 H 19 99 07/10/19 12:54 99 H 24 97 07/10/19 12:14 37.2 C 88 17 151/94 H 100 Pulse Ox 07/10/19 18:55 99 07/10/19 18:25 07/10/19 17:31 07/10/19 17:01 07/10/19 16:32 07/10/19 16:06 07/10/19 15:46 07/10/19 15:30 07/10/19 15:15 07/10/19 15:00 07/10/19 14:45 07/10/19 14:31 07/10/19 14:30 07/10/19 14:01 07/10/19 14:00 07/10/19 13:46 07/10/19 13:39 07/10/19 13:30 07/10/19 13:27 07/10/19 13:16 07/10/19 13:01 07/10/19 13:00 07/10/19 12:54 07/10/19 12:14 Lab Results (24hrs): Laboratory Tests (24 Hours) 07/10/19 07/10/19 07/10/19 12:42 12:42 12:42 WBC 9.68 Neut # (Auto) 5.94 Creatinine 1.25 Est Cr Clr Drug Dosing Not Reportable Procalcitonin < 0.05 Micro Results: 07/10/19 18:30 CSF Culture - Pending Cerebral Spinal Fluid 07/10/19 15:09 Aerobic Blood Culture - Pending Blood Anaerobic Blood Culture - Pending 07/10/19 15:00 Aerobic Blood Culture - Pending Blood Anaerobic Blood Culture - Pending - Risk Factors for Resistance * Immunocompromised (chemotherapy) - Assessment & Plan Assessment 84 year old M receiving IV Vancomycin, IV Ampicillin (8 gm/day), IV Cefepime 4 gm/day pending w/u for possible meningitis Plan IV Vancomycin/Ampicillin/Cefepime for treatment of meningitis Vancomycin IV * Estimated PK Parameters: Vd 0.65 L/kg, Kody 0.048 hr-1, t1/2 14.44 hr * Loading dose: 2000 mg (19 mg/kg) * Maintenance dose: 1500 mg IV (14.2 mg/kg) every 16 hours * Goal trough level for meningitis : 15 to 20 mcg/mL * Trough level deferred pending continuation of IV Vancomycin beyond then initial 48 hour empiric indication * A less than traditional dose and/or extended dosing interval has/have been selected due to likelihood of drug accumulation in obese patient/patient with h/o CKD. Pharmacy will continue to follow and will adjust dose/frequency as necessary. Thank you.
[2019-07-10] MEDS: AMPICILLIN 1,000 MG in SODIUM CHLOR 0.9% AD-VAN 50 ML IV SCH ×2 (21:57→23:33)
[2019-07-10] MEDS: LACTATED RINGER'S 1,000 ML IV SCH (21:57)
[2019-07-10] MEDS: TOLTERODINE TARTRATE LA 4 MG CAPCR PO SCH (21:58)
[2019-07-10] MEDS: ATORVASTATIN 40 MG TAB PO SCH (21:58)
[2019-07-10] MEDS: TAMSULOSIN HCL 0.4 MG CAP PO SCH (21:58)
[2019-07-10] MEDS: cloNIDine HCL 0.1 MG TAB PO SCH (21:58)
[2019-07-10] MEDS: ENOXAPARIN INJ 30 MG/0.3 ML SYR SQ SCH (21:58)
[2019-07-10] MEDS ORDERED: ASPIRIN CHEW 324 MG ONE (22:09)
[2019-07-10] MEDS: CEFEPIME 2,000 MG in SYRINGE 7.5 ML IV SCH (23:34)
[2019-07-11] MEDS: AMPICILLIN 1,000 MG in SODIUM CHLOR 0.9% AD-VAN 50 ML IV SCH ×4 (02:22→14:31)
[2019-07-11] MEDS ORDERED: VANCOMYCIN HCL 1,500 MG in SODIUM CHLORIDE 0.9% 500 ML IV SCH (06:00)
[2019-07-11] MEDS: cloNIDine HCL 0.1 MG TAB PO SCH ×2 (07:56→20:52)
[2019-07-11] MEDS: METOPROLOL SUCC 50MG EXT REL TAB PO SCH (07:57)
[2019-07-11] MEDS: FUROSEMIDE 20 MG TAB PO SCH (07:57)
[2019-07-11] MEDS: VALSARTAN 80 MG TAB PO SCH (07:57)
[2019-07-11] MEDS: PANTOprazole 40 MG TAB PO SCH (07:58)
[2019-07-11] MEDS: CHOLECALCIFEROL 1,000 UNITS TAB PO SCH (07:58)
[2019-07-11] MEDS: VENLAFAXINE HCL XR 150 MG CAPXR PO SCH (07:58)
--- NOTE | 2019-07-11 09:51 | Neurology Consultation ---
Date of Consultation July 11, 2019 Assessment & Plan (1) Depression: (2) Altered mental status: Broderick Dyer is an 84-year-old man with past medical history of anemia, diastolic heart failure, hypertension, history of GI bleed, metastatic prostate cancer, history of stroke with no clear residual deficits, hyperlipidemia and prolonged QT who presented to [facility] on July 10, 2019 with acute agitation and confusion. # Acute agitation/confusion: appears to be resolved at time of evaluation this morning. He denies any recent worsening of his depression to suggest possible pseudobulbar effect as cause of symptoms (pathological crying, irritability). Ddx includes HSV encephalitis vs metastatic brain lesion vs carcinomatosis meningitis vs seizure with post-ictal agitation vs behavioral (query whether he has underlying dementia) vs new stroke/TIA in frontotemporal region. 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 Please call or text with questions. (3) Prolonged QT interval: (4) Prostate cancer metastatic to bone: History of Present Illness Attending Physician: Florentino Farrell MD History of Present Illness Broderick Dyer is an 84-year-old man with past medical history of anemia, diastolic heart failure, hypertension, history of GI bleed, metastatic prostate cancer, history of stroke with no clear residual deficits, hyperlipidemia and prolonged QT who presented to [facility] on July 10, 2019 with acute agitation and confusion. History obtained from son who reports that his father was at the doctor's office with his mom and cousin sitting in the lobby when symptoms began. They report that he was staring off then told him that he needed to go the bathroom, followed by acute tearfulness and then agitation. In the ED, he was noted to be extremely agitated and combative requiring multiple doses of Haldol and Ativan, as well as four-point restraints. After receiving Versed, he started to calm down slightly when he was going for scans. Lab work in the ED was notable for WBC 9.68, hemoglobin 11.3, platelets 162, INR 1.2, sodium 133, BUN 30, creatinine 1.25, glucose 92 with an anion gap of 15 (within normal). Lactate was initially elevated at 5.6 and went down to 1.0 approximately 6 hours later after receiving just IV fluids. Other lab work included negative troponin, normal LFTs, calcium magnesium within normal, TSH within normal, negative procalcitonin, UA negative for infection. CT of the head on independent review showed no hemorrhage and chronic right basal ganglia and caudate infarcts with small vessel ischemic disease as well. Lumbar puncture showed 6 WBCs, 7350 RBCs, 53 glucose and elevated protein 230.2. Viral PCR is and CSF culture pending at the time of writing this note. Blood and urine cultures are also pending. CT of the chest abdomen pelvis was notable for small right pleural effusion, left supraclavicular lymphadenopathy, subacute fourth and fifth rib fracture, cardiomegaly, and moderate progressive adenopathy in his pelvis. On examination today, he reports that he feels like he is at his baseline. Family at bedside say that he was still altered around 9 PM when he left last night and that nursing staff told him that around 930 to 10 PM he seemed to be calm unlike his normal self. No issues were noted overnight. He denies having any infectious prodrome, fever, chills, upper respiratory infection, headache, neck stiffness. He does fall but they deny any hitting of his head recently. Family deny any convulsive movements, tongue biting or loss of bowel or bladder when symptoms began, though he was staring off for a brief period. They deny that he is ever had any episodes like this before. He denies having any numbness, tingling, weakness or vision changes. He is hard of hearing at baseline and unfortunately did not bring his hearing aids with him. Allergies Allergy/AdvReac Type Severity Reaction Status Date / Time diphtheria toxoid,fluid Allergy Intermediate SWELLING,BLISTERS,REDNESS,HIVES Verified 07/10/19 13:53 FROM ADACEL Pertussis Vaccines Allergy Intermediate SWELLING,HIVES,REDNESS,BLISTERS Verified 07/10/19 13:53 FROM ADACEL tetanus toxoid, adsorbed Allergy Intermediate SWELLING,BLISTERS,REDNESS,HIVES Verified 07/10/19 13:53 FROM ADACEL latex Allergy Unknown SHORTNESS Verified 07/10/19 13:53 OF BREATH lisinopril Allergy Unknown Unknown Verified 07/10/19 19:49 Home Medications Home Medications Medication Instructions Recorded Confirmed Type atorvastatin [Lipitor] 40 mg PO PM #0 tab 07/25/16 07/10/19 History tamsulosin [Flomax] 0.4 mg PO HS #0 07/25/16 07/10/19 History venlafaxine [Effexor XR] 150 mg PO DAILY #0 cap 07/25/16 07/10/19 History albuterol sulfate [Ventolin HFA] 1 puff INHALATION Q6H PRN #1 10/03/17 07/10/19 History inhaler cholecalciferol (vitamin D3) 4,000 unit PO DAILY 30 Days #6 tab 10/03/17 07/10/19 History [Vitamin D3] furosemide [Lasix] 20 mg PO DAILY #0 tab 10/03/17 07/10/19 History ondansetron HCl [Zofran] 4 mg PO TID PRN #0 tab 10/03/17 07/10/19 History leuprolide [Lupron Depot] 3.75 mg IM MONTHLY #0 11/06/17 07/10/19 History cyanocobalamin (vitamin B-12) 1,000 mcg SUBCUT MONTHLY #0 11/26/17 07/10/19 History clonidine HCl 0.1 mg PO BID 07/10/19 07/10/19 History metoprolol succinate 50 mg PO DAILY 07/10/19 07/10/19 History pantoprazole 40 mg PO DAILY 07/10/19 07/10/19 History tolterodine 4 mg PO HS 07/10/19 07/10/19 History valsartan 320 mg PO DAILY 07/10/19 07/10/19 History Patient History Medical History Acute diastolic heart failure Anemia (Chronic ~01/2012) GI bleed Hypertension (Chronic 01/30/12) Hypokalemia Left ventricular diastolic dysfunction (Acute) Prostate CA (Acute) Stroke UTI (urinary tract infection) Family History Other Family history non-contributory Social History Preferred Language: Mauritian Communication Ability: Effective Federal Air Marshal Required: No Beliefs That Will Affect Care: None marital status: Current Living Situation: Spouse Feels Safe at Home: Yes Smoking Status: Unknown if ever smoked Hx Alcohol Use: No Hx Substance Use: No Review of Systems Review of Systems: 14 point review of systems completed and negative except as in HPI. Physical Exam Physical Exam: General Exam: GEN: NAD, sitting in bed. HEENT: No conjunctival injection, no rhinorrhea. CV: RRR, no peripheral edema PULM: Nonlabored respirations on room air. Neuro Exam: MS: Awake and Alert. Oriented to person, place, and month/year but not date. Speech fluent and appropriate without dysarthria or paraphasic errors. Language intact including naming, comprehension, repetition. Cognition and memory grossly intact. Slightly inattentive. No neglect. CN: Left inferior quadrantopia, ? additional right inferior quadrantopia in the right eye. No extinction to double simultaneous stimuli. Unable to visualize fundi clearly on fundoscopic exam. PERRLA OU. EOMI. Facial sensation intact to LT. Left facial droop. Hearing intact to conversation if speaking loudly (requires hearing aids at baseline). Uvula midline with symmetric palatal elevation. Shoulder shrug normal. Tongue midline. MOTOR: Normal bulk and tone. No pronator drift. BUE strength 5/5 at deltoids, biceps, triceps, wrist flexors and extensors, and hand grasp bilaterally. BLE strength 5/5 at iliopsoas, hamstrings, quadriceps, tibialis anterior, and gastrocnemius bilaterally. REFLEXES: 1+ at biceps, triceps, brachioradialis, absent patella and absent Achilles bilaterally. Toes mute bilaterally. SENSORY: Intact to LT without extinction to double simultaneous stimuli. Vibration and temperature intact throughout except absent vibration in BLEs up to the knees. COORDINATION: No dysmetria or ataxia on [id number] bilaterally. Decreased amplitude/frequency of Sidra bilaterally. GAIT: deferred given physical status (multiple bruises and cuts from recent falls) Results & Data Vital Signs (Past 12 Hours) Vital Signs Temp Pulse Resp BP Pulse Ox 07/11/19 07:48 37.5 C 63 18 164/65 H 100 07/11/19 03:20 36.8 C 57 L 20 175/69 H 100 07/10/19 23:44 36.5 C 61 20 165/65 H 100 PG Care Time/CCT Total # of Minutes Spent Total Time Spent with Patient: Total time spent is greater than 50% in coordination of care (as documented) at patient's floor/unit and/or counseling patient: (1) Altered mental status Altered mental status type: unspecified Qualified Code(s): R41.82 - Altered mental status, unspecified
[2019-07-11 10:02] LABS: Basophils # (auto) 0.01 K/uL (0-0.2); Basophils % (auto) 0.1 %; Eosinophils # (auto) 0.05 K/uL (0-0.5); Eosinophils % (auto) 0.7 %; Hematocrit (blood only) 29.3 % (42-52); Hemoglobin 10.1 g/dL (14.0-18.0); Immature Granulocytes # (auto) 0.08 K/uL (0.00-0.02); Lymphocytes # (auto) 1.24 K/uL (1.2-3.4); Lymphocytes % (auto) 16.1 %; Mean Corpuscular Hemoglobin 32.1 pg (25-34); Mean Corpuscular Hgb Conc 34.5 g/dL (32-36); Mean Platelet Volume 8.4 fL (7.4-10.4); Monocytes # (auto) 0.77 K/uL (0.11-0.59); Neutrophils # (auto) 5.54 K/uL (1.4-6.5); Neutrophils % (auto) 72.1 %; Platelet Count 109 K/uL (130-400); RDW Coefficient of Variation 16.4 % (11.5-14.5); Red Blood Count 3.15 M/uL (4.7-6.1); White Blood Count 7.69 K/uL (4.8-10.8)
[2019-07-11 10:19] LABS: INR 1.2 (0.9-1.1); Prothrombin Time 12.1 Seconds (9.0-12.0)
[2019-07-11 10:41] LABS: Albumin Level 2.6 gm/dl (3.4-5.0); BUN Creatinine Ratio 21.7 (10-20); Calcium 8.1 mg/dl (8.5-10.1); Creatinine Clr Calc Pharmacy 67.4 ml/min; Est GFR (African American) 85.3; Est GFR (Non-African American) 73.6; Potassium 3.9 mmol/L (3.5-5.1)
[2019-07-11 10:43] LABS: Albumin Globulin Ratio 0.8 (0.9-2); Bilirubin,Total 0.6 mg/dl (0.2-1); Globulin 3.2 gm/dl (2.5-4.0); Phosphorus 2.9 mg/dl (2.5-4.9); Total Protein 5.8 gm/dl (6.4-8.2)
[2019-07-11] MEDS: LACTATED RINGER'S 1,000 ML IV SCH (11:58)
[2019-07-11] MEDS: CEFEPIME 2,000 MG in SYRINGE 7.5 ML IV SCH (12:01)
[2019-07-11] MEDS ORDERED: LORazepam 1 MG TAB PO SCH (12:30)
--- NOTE | 2019-07-11 13:09 | Oncology Consultation ---
Date of Consultation July 11, 2019 Assessment & Plan (1) Altered mental status: I cannot account for his acute delirium yesterday, but I doubt it was related to his chemotherapy. His last dose was a few days ago and even his last dose of steroids was more than 48 hours prior to the episode. His scans show some adenopathy that suggests his cancer may be progressing. However, they too do not reveal an obvious explanation for his symptoms. His labs are mostly unrevealing, though he did have a mildly elevated lactate on admission. Otherwise, I wonder if this was an acute delirious episode related to cognitive issues, particularly in a patient with multiple medical comorbidities. We will postpone his next treatment, due on Saturday. Present on Admission?: Yes History of Present Illness Reason for Consultation: Acute delirium Metastatic prostate cancer Attending Physician: Florentino Farrell MD History of Present Illness Mr. Dyer is an 84 year old man with a history of HTN, GERD, and metastatic prostate cancer. He follows with my colleague Dr. Blakely for this latter issue. He is currently receiving docetaxel on a weekly schedule. His last dose was 07/06. He was in a waiting room of a doctor's office yesterday when he became acutely confused and delirious. He was brought to the ER and required Ativan and Haldol and physical restraints until he could finally be calmed down. He had a workup including an LP that is so far negative. He is lucid and calm today and answered questions appropriately. He denied feeling unwell in any way yesterday. He denies any fevers, cough, shortness of breath, diarrhea, dysuria, new rash, URI symptoms, headaches, or vision changes. He did not take any medications he does not normally take. He would have taken some Decadron on 07/07, but not yesterday. Allergies Allergy/AdvReac Type Severity Reaction Status Date / Time diphtheria toxoid,fluid Allergy Intermediate SWELLING,BLISTERS,REDNESS,HIVES Verified 07/10/19 13:53 FROM ADACEL Pertussis Vaccines Allergy Intermediate SWELLING,HIVES,REDNESS,BLISTERS Verified 07/10/19 13:53 FROM ADACEL tetanus toxoid, adsorbed Allergy Intermediate SWELLING,BLISTERS,REDNESS,HIVES Verified 07/10/19 13:53 FROM ADACEL latex Allergy Unknown SHORTNESS Verified 07/10/19 13:53 OF BREATH lisinopril Allergy Unknown Unknown Verified 07/10/19 19:49 Home Medications Home Medications Medication Instructions Recorded Confirmed Type atorvastatin [Lipitor] 40 mg PO PM #0 tab 07/25/16 07/10/19 History tamsulosin [Flomax] 0.4 mg PO HS #0 07/25/16 07/10/19 History venlafaxine [Effexor XR] 150 mg PO DAILY #0 cap 07/25/16 07/10/19 History albuterol sulfate [Ventolin HFA] 1 puff INHALATION Q6H PRN #1 10/03/17 07/10/19 History inhaler cholecalciferol (vitamin D3) 4,000 unit PO DAILY 30 Days #6 tab 10/03/17 07/10/19 History [Vitamin D3] furosemide [Lasix] 20 mg PO DAILY #0 tab 10/03/17 07/10/19 History ondansetron HCl [Zofran] 4 mg PO TID PRN #0 tab 10/03/17 07/10/19 History leuprolide [Lupron Depot] 3.75 mg IM MONTHLY #0 11/06/17 07/10/19 History cyanocobalamin (vitamin B-12) 1,000 mcg SUBCUT MONTHLY #0 11/26/17 07/10/19 History clonidine HCl 0.1 mg PO BID 07/10/19 07/10/19 History metoprolol succinate 50 mg PO DAILY 07/10/19 07/10/19 History pantoprazole 40 mg PO DAILY 07/10/19 07/10/19 History tolterodine 4 mg PO HS 07/10/19 07/10/19 History valsartan 320 mg PO DAILY 07/10/19 07/10/19 History Patient History Medical History Acute diastolic heart failure Anemia (Chronic ~01/2012) GI bleed Hypertension (Chronic 01/30/12) Hypokalemia Left ventricular diastolic dysfunction (Acute) Prostate CA (Acute) Stroke UTI (urinary tract infection) Family History Other Family history non-contributory Social History Preferred Language: Greek Communication Ability: Effective Undercollar Maker Required: No Beliefs That Will Affect Care: None marital status: Current Living Situation: Spouse Feels Safe at Home: Yes Smoking Status: Unknown if ever smoked Hx Alcohol Use: No Hx Substance Use: No Review of Systems Review of Systems: All systems reviewed & are unremarkable except as noted in HPI & below Physical Exam Constitutional: + ill appearing (chronically) and comfortable; no acute distress ENMT: external ear and nose normal, oropharynx normal Respiratory: normal respiratory effort, lungs clear to auscultation Cardiovascular: RRR, no murmur, no edema Gastrointestinal (Abdomen): Inspection/Auscultation: normal bowel sounds; abdomen not distended Percussion/Palpation: abdomen soft; abdomen nontender Skin: no rashes, warm and dry Psychiatric: A+Ox3, euthymic affect Lymphatic: no cervical or axillary lymphadenopathy Results & Data Vital Signs (Past 12 Hours) Vital Signs Temp Pulse Pulse Resp BP Pulse Ox 07/11/19 11:55 36.3 C L 68 18 164/71 H 100 07/11/19 08:00 60 07/11/19 07:48 37.5 C 63 18 164/65 H 100 07/11/19 03:20 36.8 C 57 L 20 175/69 H 100 Laboratory Results Abnormal lab results 07/10/19 07/10/19 07/10/19 Range/Units 12:42 12:42 12:43 RBC (4.7-6.1) M/uL Hgb (14.0-18.0) g/dL Hct (42-52) % RDW Std Deviation (36.4-46.3) fL RDW Coeff of Chasity (11.5-14.5) % Plt Count (130-400) K/uL Immature Gran # (Auto) (0.00-0.02) K/uL Davie # (Auto) (0.11-0.59) K/uL PT (9.0-12.0) Seconds INR 1.2 H (0.9-1.1) Sodium 133 L (136-145) mmol/L Chloride (98-107) mmol/L BUN 32 H (7-18) mg/dl BUN/Creatinine Ratio 25.9 H (10-20) Lactate 5.6 H* (0.4-2.0) mmol/L Calcium (8.5-10.1) mg/dl Total Protein (6.4-8.2) gm/dl Albumin 3.0 L (3.4-5.0) gm/dl Albumin/Globulin Ratio 0.8 L (0.9-2) Lipase 64 L (73-393) U/L Urine pH (4.5-7.5) CSF WBC (0-5) /uL CSF Total Protein (15-45) mg/dl 07/10/19 07/10/19 07/10/19 Range/Units 14:51 18:30 18:30 RBC (4.7-6.1) M/uL Hgb (14.0-18.0) g/dL Hct (42-52) % RDW Std Deviation (36.4-46.3) fL RDW Coeff of Chasity (11.5-14.5) % Plt Count (130-400) K/uL Immature Gran # (Auto) (0.00-0.02) K/uL Davie # (Auto) (0.11-0.59) K/uL PT (9.0-12.0) Seconds INR (0.9-1.1) Sodium (136-145) mmol/L Chloride (98-107) mmol/L BUN (7-18) mg/dl BUN/Creatinine Ratio (10-20) Lactate (0.4-2.0) mmol/L Calcium (8.5-10.1) mg/dl Total Protein (6.4-8.2) gm/dl Albumin (3.4-5.0) gm/dl Albumin/Globulin Ratio (0.9-2) Lipase (73-393) U/L Urine pH 8.0 H (4.5-7.5) CSF WBC 6 H (0-5) /uL CSF Total Protein 230.2 H (15-45) mg/dl 07/11/19 07/11/19 07/11/19 Range/Units 09:52 09:52 09:52 RBC 3.15 L (4.7-6.1) M/uL Hgb 10.1 L (14.0-18.0) g/dL Hct 29.3 L (42-52) % RDW Std Deviation 55.0 H (36.4-46.3) fL RDW Coeff of Chasity 16.4 H (11.5-14.5) % Plt Count 109 L (130-400) K/uL Immature Gran # (Auto) 0.08 H (0.00-0.02) K/uL Davie # (Auto) 0.77 H (0.11-0.59) K/uL PT 12.1 H (9.0-12.0) Seconds INR 1.2 H (0.9-1.1) Sodium (136-145) mmol/L Chloride 108 H (98-107) mmol/L BUN 20 H (7-18) mg/dl BUN/Creatinine Ratio 21.7 H (10-20) Lactate (0.4-2.0) mmol/L Calcium 8.1 L (8.5-10.1) mg/dl Total Protein 5.8 L (6.4-8.2) gm/dl Albumin 2.6 L (3.4-5.0) gm/dl Albumin/Globulin Ratio 0.8 L (0.9-2) Lipase (73-393) U/L Urine pH (4.5-7.5) CSF WBC (0-5) /uL CSF Total Protein (15-45) mg/dl Diagnostic Findings CT CAP, 07/10/19: Chest IMPRESSION: 1. Small right pleural effusion, significantly decreased in size since prior PET/CT of February 25, 2019. Resolution of the left pleural effusion. 2. Interval development of left supraclavicular lymphadenopathy which is suspicious for amarilis spread of disease given history of prostate cancer. 3. Subacute right fourth and fifth rib fractures. No pneumothorax. 4. No change in sclerotic skeletal metastases. A/P IMPRESSION: 1. Moderately progressive periaortic, mesenteric, and to a lesser extent pelvic adenopathy. 2. Improving bilateral pleural effusions with mild residual. 3. Nonobstructive bowel pattern. 4. Several small gallstones unchanged compared to the prior exam. (1) Altered mental status Altered mental status type: unspecified Qualified Code(s): R41.82 - Altered mental status, unspecified
[2019-07-11] MEDS ORDERED: GADOBUTROL 65ML VIAL IV PRN (16:16)
--- NOTE | 2019-07-11 16:40 | Magnetic Resonance Report ---
MRI OF THE BRAIN WITHOUT AND WITH IV CONTRAST CLINICAL HISTORY: Altered mental status. Prostate cancer. COMPARISON STUDY: MRI of the brain November 27, 2017. Head CT July 10, 2019. TECHNIQUE: Utilizing a 1.5 Alix magnet and dedicated coil, multiplanar, multiecho imaging of the br ain was performed pre and postcontrast administration. IV administration of 9.5 mL of Gadavist contr ast was uneventful. FINDINGS: There are no foci of restricted diffusion to suggest acute infarct. No acute intracranial h emorrhage, midline shift or mass effect is present. Moderate atrophy is noted. Ventricular system is stable. The basilar cisterns are patent. No extra-axial fluid collections are noted. White matter T2 hyperintense foci are similar to MRI of November 27, 2017 and suggest small vessel disease. There is no int racranial mass. There are no parenchymal lesions. There is mild pachymeningeal dural enhancement. Thi s is a nonspecific finding. Calvarial signal is normal. A possible C2 vertebral body lesion is noted on sagittal T1-weighted sequence. Exam is mildly compromised by motion artifact. IMPRESSION: 1. No evidence for acute infarct. No acute intracranial hemorrhage. 2. Mild dural pachymeningeal enhancement. This is a nonspecific finding of uncertain significance. Th is can be seen in setting of intracranial hypotension. An infectious or neoplastic etiology could layla ear similar. 3. Moderate atrophy and mild small vessel disease. 4. Possible C2 vertebral body lesion. Electronically signed by: Camron Busch M.D. 07/11/2019 4:38 PM
--- NOTE | 2019-07-11 16:43 | Magnetic Resonance Report ---
MRA OF THE INTRACRANIAL CIRCULATION WITHOUT CONTRAST CLINICAL HISTORY: Altered mental status. COMPARISON STUDY: CTA of the head November 26, 2017. TECHNIQUE: Utilizing a 1.5 Alix magnet and 3-D [id number] technique, unenhanced MRA of the intra cranial circulation was obtained. FINDINGS: The bilateral M1, M2, A1 and A2 segments are patent. The left A1 segment is hypoplastic. Th e left vertebral artery is dominant. No intracranial aneurysm, dissection, thrombus or abrupt vessel cut off is identified. 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 IMPRESSION: Unremarkable MRA of the head. Electronically signed by: Camron Busch M.D. 07/11/2019 4:42 PM
--- NOTE | 2019-07-11 19:03 | Hospitalist Progress Note ---
Date of Service July 11, 2019 Assessment & Plan (1) Altered mental status: Discussed with Dr. Estevez - No clear etiology of symptoms at this time. Not felt to be related to chemotherapy or steroid use. Discussed with Dr. Raza - recommending adding CSF cytology. Low likelihood of HSV meningitis/encephalitis therefore would not start IV acyclovir at this time. Okay for discharge from neurology standpoint with follow-up in clinic in 2 to 4 weeks. Blood, urine, CSF cultures pending at this time, negative at 24 hours. All antibiotics discontinued Erythema on right smith possibly concerning for cellulitis however as per family members this is been present for some time and will monitor for now. WBC normal. Unclear cause of elevated lactic acid, but now back to normal. (2) Elevated serum creatinine: Notes diagnostic of acute kidney injury. Creatinine 0.94 back to baseline this morning. Likely some degree of dehydration induced given concurrence elevated BUN. (3) Anemia: Normocytic. Appears to be at baseline. Likely multifactorial with metastatic prostate cancer and chemotherapy. (4) Hyponatremia: Suspect dehydration and diuretic induced. Now resolved. Unlikely cause of current presentation. 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 Post void residual after removing. Continue tolterodine, tamsulosin. Follow-up with Dr. Blakely on discharge. (6) Hypertension: Continue current outpatient medication. Clonidine 0.1 mg twice daily, Lasix 20 mg daily, metoprolol succinate 50 mg daily, valsartan 320 mg daily. Hypotensive episodes yesterday the floor will have a high threshold to lower current elevated blood pressure. (7) Hyperlipidemia: Continue atorvastatin 40 mg daily (8) Diastolic heart failure: No current exacerbation on exam or imaging Continue metoprolol succinate and Lasix. (9) GERD (gastroesophageal reflux disease): Continue pantoprazole 40 mg p.o. daily. (10) Depression: (11) DVT prophylaxis: Lovenox 40 mg SQ daily (12) Discharge planning issues: PT, OT ordered for tomorrow prior to discharge. Subjective Patient seen in the morning with his son. He and his son feel the patient is currently back to his baseline. Neither are aware of the events that occurred leading up to his admission. Revisited patient with his in the afternoon. His confirms history consistent with H&P. Relatively sudden onset altered mental state with patient crying uncontrollably and bilateral movement disorder (flailing his arms around). Lasted until he was brought in by ambulance to the ER, sedated and restrained. She reports he slowly regained his recognition of people overnight. She confirms he is back to his usual self this afternoon. The patient still has no memory of these events. His feels this is similar to the episode in November 2017 when he was diagnosed with a urine tract infection. She does not think he was unwell with any symptoms leading up to this episode yesterday. Review of Systems Review of Systems: All systems reviewed & are unremarkable except as noted in HPI & below Physical Exam Constitutional: + ill appearing (chronically), + obese and comfortable; + not well nourished and no acute distress Eyes: PERRL, conjunctivae normal, anicteric sclerae (Slight drooping of right eyelid) ENMT: external ear and nose normal, oropharynx normal Neck: normal visual inspection and trachea midline Respiratory: normal respiratory effort, lungs clear to auscultation Cardiovascular: Rate/Rhythm: regular rate and regular rhythm Heart Sounds: no murmur Extremities: normal capillary refill and + pedal edema (1+ b/l to knees) Gastrointestinal (Abdomen): Inspection/Auscultation: abdomen normal to inspection and normal bowel sounds; abdomen not distended Percussion/Palpation: abdomen soft; abdomen nontender, no guarding and abdomen not rigid Musculoskeletal: no cyanosis or clubbing, extremities motor strength 5/5 Skin: + wound (right smith skin tear with surrounding erythema without warmth to touch) Neurologic: moves all extremities and awake; no focal motor deficits and no meningeal signs Speech / Cognition: + abnormal cognition (possibly due to poor hearing); normal speech Motor/Sensory: no tremor, no pronator drift and no sensory deficit Cranial Nerves: PERRL, normal accommodation, EOM intact bilaterally, normal facial strength, tongue midline, able to rotate head bilaterally, able to elevate shoulders bilaterally and symmetric palate elevation; + hearing impairment (chronic reduced duy) Psychiatric: A+Ox3, euthymic affect Lymphatic: no cervical or axillary lymphadenopathy Results & Data Vital Signs (Past 12 Hours) Vital Signs Temp Pulse Pulse Resp BP Pulse Ox 07/11/19 16:13 36.9 C 75 20 174/84 H 100 07/11/19 15:03 58 L 07/11/19 11:55 36.3 C L 68 18 164/71 H 100 07/11/19 08:00 60 07/11/19 07:48 37.5 C 63 18 164/65 H 100 PG Care Time/CCT Total # of Minutes Spent Total Time Spent with Patient: Total time spent is greater than 50% in coordination of care (as documented) at patient's floor/unit and/or counseling patient: (1) Altered mental status Altered mental status type: unspecified Qualified Code(s): R41.82 - Altered mental status, unspecified (2) Hypertension Hypertension type: essential hypertension Qualified Code(s): I10 - Essential (primary) hypertension (3) Hyperlipidemia Hyperlipidemia type: unspecified Qualified Code(s): E78.5 - Hyperlipidemia, unspecified (4) Diastolic heart failure Heart failure chronicity: chronic Qualified Code(s): I50.32 - Chronic diastolic (congestive) heart failure (5) GERD (gastroesophageal reflux disease) Esophagitis presence: esophagitis presence not specified Qualified Code(s): K21.9 - Gastro-esophageal reflux disease without esophagitis
[2019-07-11] MEDS: ENOXAPARIN INJ 30 MG/0.3 ML SYR SQ SCH (20:50)
[2019-07-11] MEDS: TOLTERODINE TARTRATE LA 4 MG CAPCR PO SCH (20:52)
[2019-07-11] MEDS: TAMSULOSIN HCL 0.4 MG CAP PO SCH (20:53)
[2019-07-11] MEDS: ATORVASTATIN 40 MG TAB PO SCH (20:54)
[2019-07-11] MEDS ORDERED: AMLODIPINE BESYLATE 5 MG TAB PO PRN (22:24)
[2019-07-12 06:49] LABS: Basophils # (auto) 0.02 K/uL (0-0.2); Basophils % (auto) 0.3 %; Eosinophils # (auto) 0.06 K/uL (0-0.5); Eosinophils % (auto) 0.8 %; Hematocrit (blood only) 30.4 % (42-52); Hemoglobin 10.5 g/dL (14.0-18.0); Immature Granulocytes # (auto) 0.09 K/uL (0.00-0.02); Immature Granulocytes % (auto) 1.2 %; Lymphocytes # (auto) 1.07 K/uL (1.2-3.4); Lymphocytes % (auto) 14.2 %; Mean Corpuscular Hemoglobin 32.2 pg (25-34); Mean Corpuscular Hgb Conc 34.5 g/dL (32-36); Mean Corpuscular Volume 93.3 fL (80-100); Mean Platelet Volume 8.6 fL (7.4-10.4); Monocytes # (auto) 0.68 K/uL (0.11-0.59); Neutrophils # (auto) 5.63 K/uL (1.4-6.5); Neutrophils % (auto) 74.5 %; Platelet Count 115 K/uL (130-400); RDW Coefficient of Variation 16.6 % (11.5-14.5); RDW Standard Deviation 56.6 fL (36.4-46.3); Red Blood Count 3.26 M/uL (4.7-6.1); White Blood Count 7.55 K/uL (4.8-10.8)
[2019-07-12 07:17] LABS: Albumin Level 2.8 gm/dl (3.4-5.0); BUN Creatinine Ratio 18.9 (10-20); Calcium 7.8 mg/dl (8.5-10.1); Creatinine Clr Calc Pharmacy 67.7 ml/min; Est GFR (African American) 86.5; Est GFR (Non-African American) 74.6; Potassium 3.9 mmol/L (3.5-5.1)
[2019-07-12 07:25] LABS: Albumin Globulin Ratio 0.8 (0.9-2); Bilirubin,Total 0.5 mg/dl (0.2-1); Globulin 3.5 gm/dl (2.5-4.0); Phosphorus 1.9 mg/dl (2.5-4.9); Total Protein 6.3 gm/dl (6.4-8.2)
[2019-07-12] MEDS ORDERED: ONDANSETRON 4 MG OD TAB PO PRN (07:36)
[2019-07-12] MEDS ORDERED: POTASSIUM PHOS 3 MMOL/1 ML INFUSION IV STA (07:50)
[2019-07-12] MEDS: VENLAFAXINE HCL XR 150 MG CAPXR PO SCH (08:11)
[2019-07-12] MEDS: VALSARTAN 80 MG TAB PO SCH (08:11)
[2019-07-12] MEDS: FUROSEMIDE 20 MG TAB PO SCH (08:11)
[2019-07-12] MEDS: cloNIDine HCL 0.1 MG TAB PO SCH (08:11)
[2019-07-12] MEDS: CHOLECALCIFEROL 1,000 UNITS TAB PO SCH (08:11)
[2019-07-12] MEDS: PANTOprazole 40 MG TAB PO SCH (08:11)
[2019-07-12] MEDS: METOPROLOL SUCC 50MG EXT REL TAB PO SCH (08:11)
[2019-07-12] MEDS ORDERED: POTASSIUM PHOSPHATE 9 MMOL in SODIUM CHLORIDE 0.9% 250 ML IV ONE (08:15)
--- NOTE | 2019-07-12 10:29 | Neurology Progress Note ---
Date of Service July 12, 2019 Assessment & Plan (1) Altered mental status: Broderick Dyer is an 84-year-old man with past medical history of anemia, diastolic heart failure, hypertension, history of GI bleed, metastatic prostate cancer, history of stroke with no clear residual deficits, hyperlipidemia and prolonged QT who presented to [facility] on July 10, 2019 with acute agitation and confusion. # Acute agitation/confusion: appears to be resolved at time of evaluation this morning. He denies any recent worsening of his depression to suggest possible pseudobulbar effect as cause of symptoms (pathological crying, irritability). Ddx includes HSV encephalitis vs metastatic brain lesion vs carcinomatosis meningitis vs seizure with post-ictal agitation vs behavioral (query whether he has underlying dementia) vs variant of transient global amnesia as he doesn't remember the day at all. MRI brain shows moderate atrophy, mild SVID, and mild pachymeningeal enhancement. He denies any headache making low pressure headache unlikely. Imaging finding would be more concerning for possible dural metastatic disease (prostate cancer rarely causes this but it is possible). MRA head shows dominant left vertebral artery, otherwise no LVO, high grade stenosis or aneu rysm (neck vessel imaging not obtained). - would send for CSF cytology - recommend that oncology weigh in on possibly repeating PET scan to r/o dural metastatic disease as cytology can be low yield - follow up in neurology clinic in 4-6 weeks with outpatient EEG planned at that time Thank you for this interesting consult. Please call or text with questions. (2) Prolonged QT interval: (3) Prostate cancer metastatic to bone: Subjective NAEs overnight. Denies any complaints this morning. reports concern about what to do should a similar event happen in the future when she is with him alone. She denies any concerns for baseline memory issues, though he was confused about date and his upcoming appointments this morning. Review of Systems Review of Systems: 14 point review of systems completed and negative except as in HPI. Physical Exam Physical Exam: General Exam: GEN: NAD, sitting in bed. HEENT: No conjunctival injection, no rhinorrhea. CV: RRR, no peripheral edema PULM: Nonlabored respirations on room air. Neuro Exam: MS: Awake and Alert. Oriented to person, place, and month/year but not date. Speech fluent and appropriate without dysarthria or paraphasic errors. Language intact including naming, comprehension, repetition. Cognition and memory grossly intact. Slightly inattentive. No neglect. CN: Left inferior quadrantopia, ? additional right inferior quadrantopia in the right eye. No extinction to double simultaneous stimuli. Unable to visualize fundi clearly on fundoscopic exam. PERRLA OU. EOMI. Facial sensation intact to LT. Left facial droop. Hearing intact to conversation if speaking loudly (requires hearing aids at baseline). Uvula midline with symmetric palatal elevation. Shoulder shrug normal. Tongue midline. MOTOR: Normal bulk and tone. No pronator drift. BUE strength 5/5 at deltoids, biceps, triceps, wrist flexors and extensors, and hand grasp bilaterally. BLE strength 5/5 at iliopsoas, hamstrings, quadriceps, tibialis anterior, and gastrocnemius bilaterally. REFLEXES: 1+ at biceps, triceps, brachioradialis, absent patella and absent Achilles bilaterally. Toes mute bilaterally. SENSORY: Intact to LT without extinction to double simultaneous stimuli. Vibration and temperature intact throughout except absent vibration in BLEs up to the knees. COORDINATION: No dysmetria or ataxia on [id number] bilaterally. Decreased amplitude/frequency of Sidra bilaterally. GAIT: deferred given physical status (multiple bruises and cuts from recent falls) Results & Data Vital Signs (Past 12 Hours) Vital Signs Temp Pulse Pulse Resp BP Pulse Ox 07/12/19 07:34 97 H 07/12/19 07:14 36.4 C L 82 16 149/72 H 100 07/12/19 03:26 36.6 C 82 18 159/67 H 99 07/12/19 01:25 80 176/79 H 07/11/19 23:51 36.8 C 62 18 180/75 H 100 07/11/19 23:25 67 PG Care Time/CCT Total # of Minutes Spent Total Time Spent with Patient: Total time spent is greater than 50% in coordination of care (as documented) at patient's floor/unit and/or counseling patient: (1) Altered mental status Altered mental status type: unspecified Qualified Code(s): R41.82 - Altered mental status, unspecified
[2019-07-12 12:05] VITALS: BP 155/67; TEMP 97.9; O2SAT 95
[2019-07-12 16:47] VITALS: PULSE 72
[2019-07-12] MEDS ORDERED: ENOXAPARIN INJ 40 MG/0.4 ML SYR SQ SCH (21:00)
[2019-07-14 04:13] LABS: CMV DNA Qnt Real Time PCR <200 IU/mL (<200); CMV DNA Quant PCR <2.30 log IU/mL (<2.30); HSV Type 1 DNA Not Detected (Not Detected); HSV Type 1&2 DNA Source CSF; HSV Type 2 DNA Not Detected (Not Detected)
--- NOTE | 2019-07-14 14:43 | Discharge Summary ---
Date of Service July 12, 2019 Admission HPI Per Admitting Provider 84-year-old male presents with his family for altered mental status. The entire history is based on the family's witnessed account as well as the ED note/discussions with the ED physician. - Per the at bedside, the patient has been in his completely normal state of health for the past few days. Specifically, says that he has not been complaining of anything. No known recent fevers or illness, vomiting or diarrhea, or changes in normal activities. - This morning he accompanied her to medical appointment. Roughly around 11:30 AM she spoke with him but he replied in a confused manner. He then told someone that he had to void and had the sudden urge to cry. He also then rather suddenly began to "flail his arms around", so he was assisted by medical clinic staff prior to transfer here. No reported falls during this time. - On arrival to the ED, patient was noted to being very agitated requiring multiple acute sedative medications as well as brief restraints. Ultimately he did calm down and the restraints were quickly removed. - At the time of this H&P, patient is awake, alert to self and some of his family members, as well as location. He follows commands by squeezing both hands and moving his feet. He knows he is in the hospital but does not know why. However, there are some verbal symptoms such as he knows the name of his son but not of his (calls his by the dog's name) and makes some random comments such as "shrimp picker the pizza off the floor". He denies any current pain. - Past medical history includes metastatic prostate cancer, hypertension, duodenal ulcers and GI bleed, diastolic CHF, prior severe aortic stenosis (now s/p TAVR), aspiration pneumonia, depression, BPH, GERD, carotid artery stenosis - Past surgical history includes TAVR, pacemaker placement, right total knee replacement, umbilical hernia repair, left inguinal hernia repair, right femur fracture surgery, cataracts. - Social history includes quitting cigar smoking at age 44. Quit drinking alcohol years ago. Lives at home with family. Admission Exam Per Admitting Provider GENERAL: Alert to self and location, appears still a bit sedated (i.e. hard to keep eyes open), but not in immediate distress. HENT: Normocephalic, atraumatic. Oropharynx unremarkable. EYES: Normal conjunctiva. Sclera non-icteric. NECK: Inspection normal. Supple and full ROM. No nuchal rigidity. CARDIAC: +S1S2 RRR, no murmurs. RESPIRATORY: Clear to auscultation. No wheezes or rales. Normal respiratory effort. GI: +BS, soft, non-distended. No tenderness to palpation. No rebound or guarding. EXTREMITIES: No pedal edema or calf tenderness. He will move his arms a bit spontaneously. Will move his bilateral feet on command. Bilateral forearms have diffuse bruising with some small skin tears but no active bleeding. NEURO: Presently following commands with equal strong fish stringer assembler strength bilaterally. Remains confused with questionable verbal aphasia. Lines: Gutierrez catheter placed. Principal Diagnosis Acute agitation / confusion event Discharge Exam Constitutional + obese and comfortable; + not well nourished and no acute distress Eyes PERRL, conjunctivae normal, anicteric sclerae (Slight drooping of right eyelid) ENMT external ear and nose normal, oropharynx normal (drooping of right eyelid) Neck normal visual inspection and trachea midline Respiratory normal respiratory effort, lungs clear to auscultation Cardiovascular Rate/Rhythm: regular rate and regular rhythm Heart Sounds: no murmur Extremities: normal capillary refill and + pedal edema (1+ b/l to knees) Gastrointestinal (Abdomen) Inspection/Auscultation: abdomen normal to inspection and normal bowel sounds; abdomen not distended Percussion/Palpation: abdomen soft; abdomen nontender, no guarding and abdomen not rigid Musculoskeletal no cyanosis or clubbing, extremities motor strength 5/5 Skin no rashes, warm and dry + wound (right smith skin tear, improved appearance from prior day) Neurologic moves all extremities and awake; no focal motor deficits and no meningeal signs Speech / Cognition: + abnormal cognition (possibly due to poor hearing); normal speech Motor/Sensory: no tremor, no pronator drift and no sensory deficit Cranial Nerves: PERRL, normal accommodation, EOM intact bilaterally, normal facial strength, tongue midline, able to rotate head bilaterally, able to elevate shoulders bilaterally and symmetric palate elevation; + hearing impairment (chronic reduced duy) Psychiatric A+Ox3, euthymic affect Discharge Data Allergies Allergy/AdvReac Type Severity Reaction Status Date / Time diphtheria toxoid,fluid Allergy Intermediate SWELLING,BLISTERS,REDNESS,HIVES Verified 07/10/19 13:53 FROM [facility] Pertussis Vaccines Allergy Intermediate SWELLING,HIVES,REDNESS,BLISTERS Verified 07/10/19 13:53 FROM [facility] tetanus toxoid, adsorbed Allergy Intermediate SWELLING,BLISTERS,REDNESS,HIVES Verified 07/10/19 13:53 FROM [facility] latex Allergy Unknown SHORTNESS Verified 07/10/19 13:53 OF BREATH lisinopril Allergy Unknown Unknown Verified 07/10/19 19:49 Consultations 07/10/19 15:41 ED Decision to Admit Stat 07/10/19 18:55 Consult Neurology Routine 07/11/19 09:47 Consult Oncology Routine Ordered Studies 07/10/19 12:41 CT head/brain wo con Stat 07/10/19 14:13 CT abd pelvis IV con only Stat CT chest w con Stat 07/10/19 16:41 FL lumbar puncture diagnostic Stat 07/11/19 09:24 MR angio head wo con Urgent 07/11/19 09:25 MR brain wo/w con Urgent Hospital Course (1) Altered mental status: Broderick Dyer is an 84 year old male admitted to [facility] from July 10 to 2018 due to an acute episode of confusion, abnormal bilateral movements, crying and agitation while at his 's doctor's appointment. No specific cause of this event was found however he was observed over two nights and returned to your baseline after the first night. His episode was severe enough that he required restraints and antipsychotics to calm him down in the emergency room. He has no recollection of these events. Lactic acid was raised but unknown whether this was the cause or effect of his illness. He also appeared to be mildly dehydrated with elevated creatinine that easily returned to his baseline with IV fluids. He did receive broad spectrum antibiotics on admission although history not suggestive of infection and all blood, urine and cerebrospinal fluid cultures were negative at 48 hours. Multiple tests are still outstanding on discharge including viral PCR and cytology on cerebrospinal fluid. 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 He did have a CT of his lungs c oncerning for left supraclavicular lymphadenopathy suspicious for amarilis spread of his prostate cancer. He was reviewed by neurology and will follow up in 4-6 weeks as an outpatient with possible EEG at that time. Since he is now back to his baseline without reoccurrence of his symptoms, he is now medically stable for discharge. 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: (6) Hypertension: (7) Hyperlipidemia: (8) Diastolic heart failure: (9) GERD (gastroesophageal reflux disease): (10) Depression: (11) Supraclavicular lymphadenopathy: Total Time Total Time Spent Total Time Spent (In Minutes): 60 Total Time Includes: Examination of the Patient, Discharge Planning, Medication Reconciliation and Communication With Other Providers Discharge Plan Discharge Items Patient Disposition: Home - Self-Care Reason For Visit: AMS Discharge Diagnosis: Acute agitation / confusion event Activity: Resume your previous activity Non-emergency contact: Primary Care Provider Call non-emergency contact if: you have any medication questions, your symptoms worsen and your temperature is above 101 Follow-up/Referrals: Ortega Blakely DO [Physician] - Carmen Raza MD [Physician] - (2-4 weeks) Liliya Marcos CRNP [Primary Care Provider] - Diet: Heart Healthy and Low Sodium (2gm) Addtl Attending Provider Instructions: You were admitted to [facility] from July 10 - 2018 due to an acute episode of confusion, crying and agitation. No specific cause of this event was found however you were observed over two nights and have returned to your baseline without recurrence of your symptoms. On admission your lactic acid was elevated and kidney function mildly elevated suggesting some element of dehydration, although suspect these are the effect rather than cause. Possible alternative causes include delirium due to medication/drugs, dementia, infection or malignancy. Blood, urine, cerebrospinal fluid cultures are negative for infection at the current time. Multiple tests remain outstanding on discharge. Please follow-up with your primary care physician, Dr. Blakely and Dr. Raza for results of these and further outpatient work-up. If you are to have a similar episode recommend calling EMS and returning to the emergency room. Pending Studies at Discharge: No Stand-Alone Forms: My [facility] [place], Smoking Cessation Medications and DC Order Prescriptions: Continued atorvastatin [Lipitor] 40 mg Tablet 40 mg PO PM Qty: 0 RF: 0 venlafaxine [Effexor XR] 150 mg Capsule,Extended Release 24hr 150 mg PO DAILY Qty: 0 RF: 0 tamsulosin [Flomax] 0.4 mg Capsule 0.4 mg PO HS Qty: 0 RF: 0 ondansetron HCl [Zofran] 4 mg Tablet 4 mg PO TID PRN (Reason: Nausea) Qty: 0 RF: 0 furosemide [Lasix] 20 mg Tablet 20 mg PO DAILY Qty: 0 RF: 0 Vitamin D3 4,000 unit Capsule 4,000 unit PO DAILY 30 Days Qty: 6 RF: 5 albuterol sulfate [Ventolin HFA] 90 mcg/actuation Hfa Aerosol Inhaler 1 puff INHALATION Q6H PRN (Reason: Shortness Of Breath) Qty: 1 RF: 0 Lupron Depot 3.75 mg Syringe Kit 3.75 mg IM MONTHLY Qty: 0 RF: 0 cyanocobalamin (vitamin B-12) 1,000 mcg/mL Solution 1,000 mcg SUBCUT MONTHLY Qty: 0 RF: 0 clonidine HCl 0.1 mg Tablet 0.1 mg PO BID RF: 0 metoprolol succinate 50 mg tablet extended release 24 hr 50 mg PO DAILY RF: 0 tolterodine 4 mg capsule,extended release 24hr 4 mg PO HS RF: 0 pantoprazole 40 mg tablet,delayed release (DR/EC) 40 mg PO DAILY RF: 0 valsartan 320 mg tablet 320 mg PO DAILY RF: 0 Discharge Orders: Discharge Order (Routine); Ordered 07/12/19 Ordered By: Florentino Farrell Admission Data Admit Date/Time: 07/10/19 17:10 Attending Provider: Florentino Farrell Admit Provider: Jose Angel Gamez Primary Care Provider: Liliya Marcos Other Providers: Jose Angel Gamez ; Carmen Raza ; Ortega Blakely V Other Interventions: Discharge Summary Assessment (RN) Last Done: 07/12/19 16:46 DC Date/Time DO NOT enter until pt leaves facility: 07/12/19 17:22
[2019-07-16 23:43] LABS: EBV DNA Quant PCR <200 copies/mL (<200); EBV DNA Quant Source CSF; Lyme IgG Band Pattern CSF DNR; Lyme IgG CSF NO BANDS DETECTED; Lyme IgM Band Pattern CSF DNR; Lyme IgM CSF NO BANDS DETECTED; VDRL Qualitative CSF Nonreactive (Nonreactive)
[2019-07-17 08:26] LABS: Enterovirus RNA by PCR Not Detected
== END 2019-07-12 17:22 | disposition home or self-care (01) | DRG 948 ==
LOC: ED 12:18 → 2E 17:10 → SUATTDRO 17:10 → 2E 18:25 → 2N 07-11 17:37
DX: I11.9 Hypertensive heart disease without heart failure; E78.5 Hyperlipidemia, unspecified; Z88.8 Allergy status to other drugs, medicaments and biological substances; C77.1 Secondary and unspecified malignant neoplasm of intrathoracic lymph nodes; I13.10 Hypertensive heart and chronic kidney disease without heart failure, with stage 1 through stage 4 chronic kidney disease, or unspecified chronic kidney disease; C79.51 Secondary malignant neoplasm of bone; C61 Malignant neoplasm of prostate; Z95.0 Presence of cardiac pacemaker; F32.9 Major depressive disorder, single episode, unspecified; K21.9 Gastro-esophageal reflux disease without esophagitis; I50.32 Chronic diastolic (congestive) heart failure; N40.0 Benign prostatic hyperplasia without lower urinary tract symptoms; I65.29 Occlusion and stenosis of unspecified carotid artery; E86.0 Dehydration; Z86.73 Personal history of transient ischemic attack (TIA), and cerebral infarction without residual deficits; N18.3 Chronic kidney disease, stage 3 (moderate); D64.9 Anemia, unspecified; Z88.7 Allergy status to serum and vaccine; Z91.040 Latex allergy status; R41.82 Altered mental status, unspecified; Z87.891 Personal history of nicotine dependence; E87.1 Hypo-osmolality and hyponatremia

== ENCOUNTER 2019-08-22 18:32 | Observation (INO) ==
[2019-08-22] MEDS ORDERED: SODIUM CHLORIDE 0.9% 500 ML IV ONE (19:07)
[2019-08-22 19:35] LABS: Basophils # (auto) 0.02 K/uL (0-0.2); Basophils % (auto) 0.3 %; Eosinophils # (auto) 0.03 K/uL (0-0.5); Eosinophils % (auto) 0.5 %; Hematocrit (blood only) 29.5 % (42-52); Hemoglobin 10.4 g/dL (14.0-18.0); Immature Granulocytes # (auto) 0.05 K/uL (0.00-0.02); Immature Granulocytes % (auto) 0.8 %; Lymphocytes # (auto) 1.42 K/uL (1.2-3.4); Lymphocytes % (auto) 23.9 %; Mean Corpuscular Hemoglobin 32.1 pg (25-34); Mean Corpuscular Hgb Conc 35.3 g/dL (32-36); Mean Platelet Volume 8.3 fL (7.4-10.4); Monocytes # (auto) 0.89 K/uL (0.11-0.59); Neutrophils # (auto) 3.52 K/uL (1.4-6.5); Neutrophils % (auto) 59.5 %; Platelet Count 107 K/uL (130-400); RDW Coefficient of Variation 15.1 % (11.5-14.5); RDW Standard Deviation 50.7 fL (36.4-46.3); Red Blood Count 3.24 M/uL (4.7-6.1); White Blood Count 5.93 K/uL (4.8-10.8)
[2019-08-22 19:52] VITALS: O2SAT 100
[2019-08-22 19:52] LABS: Albumin Level 2.8 gm/dl (3.4-5.0); BUN Creatinine Ratio 23.1 (10-20); Magnesium 1.3 mg/dl (1.8-2.4); Potassium 3.9 mmol/L (3.5-5.1)
[2019-08-22 19:56] LABS: Albumin Globulin Ratio 0.8 (0.9-2); Bilirubin Direct 0.1 mg/dl (0-0.2); Bilirubin,Total 0.4 mg/dl (0.2-1); Globulin 3.3 gm/dl (2.5-4.0); Total Protein 6.1 gm/dl (6.4-8.2)
[2019-08-22] MEDS ORDERED: POTASSIUM PHOS 3 MMOL/1 ML INFUSION IV STA (20:04)
[2019-08-22] MEDS ORDERED: IOVERSOL 100ml IV PRN (20:16)
[2019-08-22] MEDS ORDERED: POTASSIUM PHOSPHATE 6 MMOL in SODIUM CHLORIDE 0.9% 250 ML IV ONE (20:30)
[2019-08-22] MEDS: MAGNESIUM SULFATE / D5W 1 GM/100 ML BAG IV SCH ×2 (20:38→21:40)
--- NOTE | 2019-08-22 20:49 | CT Scan Report ---
CT SCAN OF THE ABDOMEN AND PELVIS WITH IV CONTRAST CLINICAL HISTORY: Metastatic prostate cancer. Diarrhea. COMPARISON STUDY: Abdominal CT dated 07/10/2019. PET/CT dated 07/27/2019. TECHNIQUE: Following the IV administration of 93 cc of Optiray 320, CT scan of the abdomen and pelvi s is performed from the lung bases to the proximal femora. Images are reviewed in the axial, sagittal , and coronal planes. IV contrast was administered without complication. A dose lowering technique wa s utilized adhering to the principles of ALARA. CT DOSE: 1579.36 mGy.cm FINDINGS: Lung bases: Pacemaker leads are noted. There is evidence of previous bowel surgery. The heart is enla rged and without pericardial effusion. There is a trace right pleural effusion with bibasilar scarrin g/atelectasis. No airspace consolidation is seen typical for pneumonia. There are scattered calcified granulomas. A small hiatal hernia is noted. Liver: The contrast-enhanced liver is normal in size, contour, and attenuation. There is no intrahepa tic biliary ductal dilatation. The hepatic veins and portal veins are patent. There are calcified hep atic granulomas. Gallbladder: Gallstones are identified with no CT evidence of acute cholecystitis. Spleen: Normal in size and attenuation. There are scattered calcified splenic granulomas. 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 Pancreas is moderatel y atrophic and otherwise grossly unremarkable. Adrenal glands: Unremarkable. Kidneys: The contrast enhanced kidneys demonstrate cortical atrophy and are without hydronephrosis. T he kidneys enhance symmetrically. There are least 2 left renal cysts which measure up to 4.2 cm. Abdominal vasculature: The abdominal aorta is normal in course and caliber noting advanced atheroscle rotic calcification. Bowel: There is no bowel obstruction. Mild wall thickening and hyperemia is suggested in the rectosig moid region. There is no significant surrounding infiltration. Liquid stool is noted in the colon. Th e appendix is normal as visualized. Peritoneum: There is no intraperitoneal free air or abdominal ascites. Lymphadenopathy: There is bulky upper abdominal and retroperitoneal lymphadenopathy. Upper abdominal lymphadenopathy has progressed from 07/27/2019. A portacaval node on image #128 measures 4.5 x 3.1 cm (previously measuring 3.1 x 2.1 cm). Retroperitoneal lymphadenopathy has also modestly increased fro m previous. The largest node is seen in the aortocaval region on image #145 and measures 5.8 x 2.8 cm (previously measuring 5.5 x 2.7 cm). A left periaortic node on image #195 measures 2.4 cm (previousl y measuring 2.0 cm). Pelvic viscera: The prostate gland is diminutive and heterogeneous. The bladder is normal as imaged. Postoperative change is noted in the left groin. Skeletal structures: The skeletal structures are osteopenic. There is advanced lumbosacral spondylosi s. Scattered osteoblastic metastatic lesions are similar to previous. Lesions are seen within the bod ies of T11 and L5. Lesion is also seen in the left ilium.. Postoperative change is noted in the right proximal femur. IMPRESSION: 1. There is mild wall thickening and hyperemia suggested in the rectosigmoid region, with liquid stoo l seen throughout the colon. Correlate clinically for evidence of a diarrheal illness/mild proctocoli tis. 2. There has been overall modest progression of upper abdominal and retroperitoneal metastatic lympha denopathy as compared to 07/27/2019. 3. 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 4. Cardiomegaly and trace right pleural effusion. 5. Cholelithiasis. 6. Additional findings as above. ACT 112: Negative or not required by law. Electronically signed by: Musa Cuellar M.D. 08/22/2019 8:47 PM
--- NOTE | 2019-08-22 22:53 | Emergency Department Note ---
Entered by Amrita Jerry acting as a scribe for History of Present Illness General Chief complaint: Diarrhea Stated complaint: DIARRHEA FOR 2 WEEKS Time Seen by Provider: 08/22/19 18:52 History of Present Illness Provider complaint: diarrhea Onset (ago): week(s) 2 Pain Consistency: + constant Maximum Pain Intensity: 0 Quality: + other (diarrhea) Relieved By: not by medication (pepto-bismol and Imodium) Associated symptoms: + denies other symptoms (abdominal pain, recent antibiotic use); no nausea/vomiting The patient is an 84 year old male who presents to the ED with complaints of constant diarrhea that started 2 weeks ago. The patient states that he has diarrhea multiple times a day and sometimes he does not make it to the bathroom. The patient denies relief from pepto-bismol and Imodium. The patient notes that he receives chemotherapy for prostate cancer. The patient denies abdominal pain, nausea, vomiting and recent antibiotic use. Home Medications Home Medications Medication Instructions Recorded Confirmed Type atorvastatin [Lipitor] 40 mg PO HS #0 tab 07/25/16 08/22/19 History tamsulosin [Flomax] 0.4 mg PO HS #0 07/25/16 08/22/19 History venlafaxine [Effexor XR] 150 mg PO DAILY #0 cap 07/25/16 08/22/19 History Vitamin D3 4,000 unit PO DAILY 30 Days #6 tab 10/03/17 08/22/19 History albuterol sulfate [Ventolin HFA] 1 puff INHALATION Q6H PRN #1 10/03/17 08/22/19 History inhaler furosemide [Lasix] 20 mg PO QAM #0 tab 10/03/17 08/22/19 History ondansetron HCl [Zofran] 4 mg PO TID PRN #0 tab 10/03/17 08/22/19 History Lupron Depot 3.75 mg IM MONTHLY #0 11/06/17 08/22/19 History cyanocobalamin (vitamin B-12) 1,000 mcg SUBCUT MONTHLY #0 11/26/17 08/22/19 History metoprolol succinate 50 mg PO QAM 07/10/19 08/22/19 History pantoprazole 40 mg PO QAM 07/10/19 08/22/19 History tolterodine 4 mg PO HS 07/10/19 08/22/19 History valsartan 320 mg PO DAILY 07/10/19 08/22/19 History clonidine HCl 0.1 mg tablet 0.1 mg PO .COMPLEX 07/27/19 08/22/19 History dexamethasone 4 mg PO .DAILY/UD 08/22/19 08/22/19 History diphenoxylate-atropine 1 tab PO QID PRN 08/22/19 08/22/19 History trospium 20 mg PO BID 08/22/19 08/22/19 History Allergies Allergy/AdvReac Type Severity Reaction Status Date / Time diphtheria toxoid,fluid Allergy Intermediate SWELLING,BLISTERS,REDNESS,HIVES Verified 08/22/19 20:45 FROM ADACEL Pertussis Vaccines Allergy Intermediate SWELLING,HIVES,REDNESS,BLISTERS Verified 08/22/19 20:45 FROM ADACEL tetanus toxoid, adsorbed Allergy Intermediate SWELLING,BLISTERS,REDNESS,HIVES Verified 08/22/19 20:45 FROM ADACEL latex Allergy Unknown SHORTNESS Verified 08/22/19 20:45 OF BREATH lisinopril Allergy Unknown Unknown Verified 08/22/19 20:48 Past Med/Surg History Medical History Acute diastolic heart failure Anemia (Chronic ~01/2012) GI bleed Hypertension (Chronic 01/30/12) Hypokalemia Left ventricular diastolic dysfunction (Acute) Prostate CA (Acute) Stroke UTI (urinary tract infection) Surgical History No pertinent past surgical history Family History Other Family history non-contributory Social History Preferred Language: Hebrew Communication Ability: Effective 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 and A total of 10 systems reviewed and were otherwise negative Physical Exam Vital Signs Vital Signs - 24 hr 08/22/19 18:45 08/22/19 19:49 08/22/19 19:52 Temperature 36.8 C Temperature Source Oral Pulse Rate 122 H Pulse Rate [Right Finger] 86 Pulse Rate from SpO2 Sensor Respiratory Rate 22 20 Respiratory Effort / Characteristics Non-Labored Respiratory Depth Normal Blood Pressure 164/79 H Blood Pressure [Right Arm] 151/71 H Blood Pressure Mean 107 Blood Pressure Mean [Right Arm] 97 Blood Pressure Position Sitting Blood Pressure Position [Right Arm] Sitting Pulse Oximetry 99 100 100 Oxygen Delivery Method Room Air Room Air Room Air Sepsis Recent Fever Within 48 Hours No Sepsis New/Unexplained Change in Mental Status No Sepsis Action Taken by Nursing No Action Required 08/22/19 20:31 08/22/19 20:36 08/22/19 21:00 Temperature Temperature Source Pulse Rate 77 77 Pulse Rate [Right Finger] 80 Pulse Rate from SpO2 Sensor 77 77 Respiratory Rate 28 H 22 24 Respiratory Effort / Characteristics Respiratory Depth Blood Pressure 163/75 H Blood Pressure [Right Arm] 163/75 H Blood Pressure Mean 117 Blood Pressure Mean [Right Arm] 104 Blood Pressure Position Blood Pressure Position [Right Arm] Pulse Oximetry 100 100 100 Oxygen Delivery Method Room Air Sepsis Recent Fever Within 48 Hours Sepsis New/Unexplained Change in Mental Status Sepsis Action Taken by Nursing 08/22/19 21:27 08/22/19 22:00 Temperature Temperature Source Pulse Rate 71 72 Pulse Rate [Right Finger] Pulse Rate from SpO2 Sensor 71 Respiratory Rate 17 18 Respiratory Effort / Characteristics Respiratory Depth Blood Pressure 115/58 L 144/56 H Blood Pressure [Right Arm] Blood Pressure Mean 76 79 Blood Pressure Mean [Right Arm] Blood Pressure Position Blood Pressure Position [Right Arm] Pulse Oximetry 100 Oxygen Delivery Method Sepsis Recent Fever Within 48 Hours Sepsis New/Unexplained Change in Mental Status Sepsis Action Taken by Nursing GENERAL: Awake, alert, fatigued-appearing, in no distress HENT: Normocephalic, atraumatic. Oropharynx with dry mucous membranes and otherwise unremarkable. EYES: Normal conjunctiva. Sclera non-icteric. NECK: Supple. No nuchal rigidity. FROM. No JVD. RESPIRATORY: Clear to auscultation bilaterally. CARDIAC: Tachycardic rate, normal rhythm. Extremities warm and well perfused. Pulses equal. ABDOMEN: Soft, non-distended. No tenderness to palpation. No rebound or guarding. No masses. RECTAL: Deferred. MUSCULOSKELETAL: Chest examination reveals no tenderness. The back is symmetrical on inspection without obvious abnormality. There is no CVA tenderness to palpation. No joint edema. LOWER EXTREMITIES: Calves are equal size bilaterally and non-tender. No edema. No discoloration. NEURO: Normal sensorium. No sensory or motor deficits noted. SKIN: No rash or jaundice noted. Course Course 1856: Past medical records reviewed. The patient was evaluated in room B10. A complete history and physical exam was performed. 2030: I updated the patient on his test results. He states that he would prefer to stay in the hospital. 2158: I discussed the patient's case with Dr. Skinner [facility], Hospitalist. He will evaluate the patient for further management. Consultations Consultation #1: I discussed the patient's case with Dr. Skinner [facility], Hospitalist. He will evaluate the patient for further management. Time: 21:59 Administered Medications Clonidine HCl (Catapres) 0.1 mg PO PM UNA Stop: 09/21/19 23:33 Last Admin: 08/23/19 00:13 Dose: 0.1 mg Documented by: [id number] Potassium Chloride/Sodium Chloride (Normal Saline W/20 Meq Kcl) 20 meq in 1,000 mls @ 100 mls/hr IV .Q10H UNA Stop: 09/21/19 23:33 Last Admin: 08/23/19 00:00 Dose: 100 mls/hr Documented by: [id number] Ioversol (Optiray 320 100ml) 93 ml IV ONCE PRN PRN Reason: Interaction Checking Stop: 08/26/19 20:15 Last Admin: 08/22/19 20:16 Dose: 93 ml Documented by: [id number] Miscellaneous (Order Awaiting Action) 1 ea N/A QS UNA Stop: 09/22/19 00:00 Last Admin: 08/23/19 00:20 Dose: Not Given Documented by: [id number] Discontinued Medications Sodium Chloride (Nss) 500 mls @ 999 mls/hr IV .Q31M ONE Stop: 08/22/19 19:37 Last Infusion: 08/22/19 20:25 Dose: 0 mls/hr Documented by: [id number] Admin: 08/22/19 19:53 Dose: 999 mls/hr Documented by: [id number] Magnesium Sulfate/Dextrose (Magnesium Sulfate / D5w) 1 gm in 100 mls @ 100 mls/hr IV Q1H UNA Stop: 08/22/19 22:14 Last Infusion: 08/22/19 22:40 Dose: 0 mls/hr Documented by: [id number] Admin: 08/22/19 21:40 Dose: 100 mls/hr Documented by: [id number] Infusion: 08/22/19 21:38 Dose: 100 mls/hr Documented by: [id number] Admin: 08/22/19 20:38 Dose: 100 mls/hr Documented by: [id number] Potassium Phosphate 6 mmol/ (Sodium Chloride) 252 mls @ 252 mls/hr IV 2030 ONE Stop: 08/22/19 21:29 Last Infusion: 08/22/19 21:40 Dose: 0 mls/hr Documented by: [id number] Admin: 08/22/19 20:38 Dose: 252 mls/hr Documented by: [id number] Magnesium Sulfate/Dextrose (Magnesium Sulfate / D5w) 1 gm in 100 mls @ 100 mls/hr IV Q1H UNA Stop: 08/23/19 02:33 Last Infusion: 08/23/19 03:05 Dose: 0 mls/hr Documented by: [id number] Admin: 08/23/19 02:05 Dose: 100 mls/hr Documented by: [id number] Infusion: 08/23/19 02:05 Dose: 100 mls/hr Documented by: [id number] Admin: 08/23/19 01:05 Dose: 100 mls/hr Documented by: [id number] Infusion: 08/23/19 01:00 Dose: 100 mls/hr Documented by: [id number] Admin: 08/23/19 00:00 Dose: 100 mls/hr Documented by: [id number] Potassium Phosphate (Potassium Phosphate Replace) 6 mmol IV NOW STA Stop: 08/22/19 20:05 Last Admin: 08/22/19 20:54 Dose: Not Given Documented by: [id number] Medical Decision Making Differential Diagnosis Differential diagnosis: Etiologies such as gastroenteritis, food borne illness, infections, appendicitis, diverticulitis, inflammatory bowel disease, obstruction, GI bleed, biliary pathology, cardiac process, intracranial process, as well as others were entertained. Medical Records Attestation: I reviewed the patient's medical records. Home Medications Current Medication List: was personally reviewed by me Laboratory Data Attestation: I reviewed the patient's lab results. Result diagrams: 08/22/19 19:24 08/22/19 19:24 Lab Results 08/22/19 08/22/19 08/22/19 Range/Units 19:24 19:24 19:54 WBC 5.93 (4.8-10.8) K/uL RBC 3.24 L (4.7-6.1) M/uL Hgb 10.4 L (14.0-18.0) g/dL Hct 29.5 L (42-52) % MCV 91.0 (80-100) fL MCH 32.1 (25-34) pg MCHC 35.3 (32-36) g/dL RDW Std Deviation 50.7 H (36.4-46.3) fL RDW Coeff of Chasity 15.1 H (11.5-14.5) % Plt Count 107 L (130-400) K/uL MPV 8.3 (7.4-10.4) fL Immature Gran % (Auto) 0.8 % Neut % (Auto) 59.5 % Lymph % (Auto) 23.9 % [place] % (Auto) 15.0 % Eos % (Auto) 0.5 % Baso % (Auto) 0.3 % Immature Gran # (Auto) 0.05 H (0.00-0.02) K/uL Neut # (Auto) 3.52 (1.4-6.5) K/uL Lymph # (Auto) 1.42 (1.2-3.4) K/uL [place] # (Auto) 0.89 H (0.11-0.59) K/uL Eos # (Auto) 0.03 (0-0.5) K/uL Baso # (Auto) 0.02 (0-0.2) K/uL Sodium 136 (136-145) mmol/L Potassium 3.9 (3.5-5.1) mmol/L Chloride 110 H (98-107) mmol/L Carbon Dioxide 18 L (21-32) mmol/L Anion Gap 8.0 (3-11) BUN 25 H (7-18) mg/dl Creatinine 1.07 (0.6-1.4) mg/dl Est Cr Clr Drug Dosing 54.0 ml/min Est GFR ( Amer) 73.0 Est GFR (Non-Af Amer) 63.0 BUN/Creatinine Ratio 23.1 H (10-20) Glucose 87 (70-99) mg/dl Calcium 9.0 (8.5-10.1) mg/dl Phosphorus 2.0 L (2.5-4.9) mg/dl Magnesium 1.3 L (1.8-2.4) mg/dl Total Bilirubin 0.4 (0.2-1) mg/dl Direct Bilirubin 0.1 (0-0.2) mg/dl AST 26 (15-37) U/L ALT 15 (12-78) U/L Alkaline Phosphatase 69 (45-117) U/L Total Protein 6.1 L (6.4-8.2) gm/dl Albumin 2.8 L (3.4-5.0) gm/dl Globulin 3.3 (2.5-4.0) gm/dl Albumin/Globulin Ratio 0.8 L (0.9-2) Lipase 35 L (73-393) U/L Stl C. diff Tox B Gene Negative Cdiff Gene (Neg) Imaging Data Radiologist's Impression: Radiology results as stated below per my review and the radiologist's interpretation: CT SCAN OF THE ABDOMEN AND PELVIS WITH IV CONTRAST CLINICAL HISTORY: Metastatic prostate cancer. Diarrhea. COMPARISON STUDY: Abdominal CT dated 07/10/2019. PET/CT dated 07/27/2019. TECHNIQUE: Following the IV administration of 93 cc of Optiray 320, CT scan of the abdomen and pelvis is performed from the lung bases to the proximal femora. Images are reviewed in the axial, sagittal, and coronal planes. IV contrast was administered without complication. A dose lowering technique was utilized adhering to the principles of ALARA. CT DOSE: 1579.36 mGy.cm FINDINGS: Lung bases: Pacemaker leads are noted. There is evidence of previous bowel surgery. The heart is enlarged and without pericardial effusion. There is a trace right pleural effusion with bibasilar scarring/atelectasis. No airspace consolidation is seen typical for pneumonia. There are scattered calcified granulomas. A small hiatal hernia is noted. Liver: The contrast-enhanced liver is normal in size, contour, and attenuation. There is no intrahepatic biliary ductal dilatation. The hepatic veins and portal veins are patent. There are calcified hepatic granulomas. Gallbladder: Gallstones are identified with no CT evidence of acute cholecystitis. Spleen: Normal in size and attenuation. There are scattered calcified splenic granulomas. 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 Pancreas is moderately atrophic and otherwise grossly unremarkable. Adrenal glands: Unremarkable. Kidneys: The contrast enhanced kidneys demonstrate cortical atrophy and are without hydronephrosis. The kidneys enhance symmetrically. There are least 2 left renal cysts which measure up to 4.2 cm. Abdominal vasculature: The abdominal aorta is normal in course and caliber noting advanced atherosclerotic calcification. Bowel: There is no bowel obstruction. Mild wall thickening and hyperemia is sug gested in the rectosigmoid region. There is no significant surrounding infiltration. Liquid stool is noted in the colon. The appendix is normal as visualized. Peritoneum: There is no intraperitoneal free air or abdominal ascites. Lymphadenopathy: There is bulky upper abdominal and retroperitoneal lymphadenopathy. Upper abdominal lymphadenopathy has progressed from 07/27/2019. A portacaval node on image #128 measures 4.5 x 3.1 cm (previously measuring 3.1 x 2.1 cm). Retroperitoneal lymphadenopathy has also modestly increased from previous. The largest node is seen in the aortocaval region on image #145 and measures 5.8 x 2.8 cm (previously measuring 5.5 x 2.7 cm). A left periaortic node on image #195 measures 2.4 cm (previously measuring 2.0 cm). Pelvic viscera: The prostate gland is diminutive and heterogeneous. The bladder is normal as imaged. Postoperative change is noted in the left groin. Skeletal structures: The skeletal structures are osteopenic. There is advanced lumbosacral spondylosis. Scattered osteoblastic metastatic lesions are similar to previous. Lesions are seen within the bodies of T11 and L5. Lesion is also seen in the left ilium.. Postoperative change is noted in the right proximal femur. IMPRESSION: 1. There is mild wall thickening and hyperemia suggested in the rectosigmoid region, with liquid stool seen throughout the colon. Correlate clinically for evidence of a diarrheal illness/mild proctocolitis. 2. There has been overall modest progression of upper abdominal and retroperitoneal metastatic lymphadenopathy as compared to 07/27/2019. 3. 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 4. Cardiomegaly and trace right pleural effusion. 5. Cholelithiasis. 6. Additional findings as above. ACT 112: Negative or not required by law. Electronically signed by: Musa Cuellar M.D. 08/22/2019 8:47 PM Blood Pressure Blood Pressure Findings: Elevated blood pressure Blood Pressure Disposition: further management by hospitalist PERICO Narrative The patient is a pleasant 84-year-old gentleman with a past medical history of metastatic disease related to prostate cancer who presents emergency department with 2 weeks of diarrhea per HPI. On arrival patient is no acute distress, afebrile stable vital signs. On exam patient's abdomen is benign. He did have a recent PET scan in June that demonstrates metastatic disease. He is currently on chemotherapy. He was seen in the emergency department last week for syncopal episode in the setting of his constipation but reports no improvement despite being started on occasions by his oncologist. WBC within normal limits. H/H 10.4/29.5 and platelets 107 similar to prior range of values. Chemistry with non-gap acidosis with bicarb of 18 consistent with the patient's diarrheal illness. Creatinine within normal limits. BUN/creatinine> 20, consistent with the patient's clinically dry appearance. Magnesium 1.3 and phosphorus 2.0 with repletion provided. Electrolytes and LFTs otherwise unremarkable. C. difficile was negative. CT the abdomen pelvis was performed and demonstrates evidence of the patient's diarrheal illness. Again appreciated is the patient's known metastatic disease. Given the patient's metabolic acidosis and electrolyte abnormalities reasonable to proceed with admission. Patient and family were preferring this. Case was discussed with Dr. Carlos, [facility] [place] hospitalist, who will evaluate the patient for admission. Impression & Plan Metabolic acidosis, Hypomagnesemia, Hypophosphatemia, Metastatic disease, Diarrhea Discharge Plan Visit Data *Final* Discharge Date/Time: 08/22/19 23:24 Chief Complaint: Diarrhea Stated Complaint: DIARRHEA FOR 2 WEEKS ED Provider: Patrick Ayala Discharge Problem: Metabolic acidosis, Hypomagnesemia, Hypophosphatemia, Metastatic disease, Diarrhea Patient Disposition: Admitted As Inpatient Discharge Problem: Diarrhea Qualifiers: Diarrhea type: unspecified type Qualified Code(s): R19.7 - Diarrhea, unspecified The scribe's documentation has been prepared under my direction and personally reviewed by me in its entirety. I confirm that the note above accurately reflects all work, treatment, procedures, and medical decision making performed by me.
[2019-08-22] MEDS ORDERED: ALBUTEROL HFA 8 GM INHALER INH PRN (23:34)
[2019-08-22] MEDS ORDERED: ONDANSETRON 4 MG TAB PO PRN (23:34)
[2019-08-22] MEDS ORDERED: ONDANSETRON INJ 2 MG/ML 2 ML VIAL IV PRN (23:34)
[2019-08-22] MEDS ORDERED: ACETAMINOPHEN 325 MG TAB PO PRN (23:34)
[2019-08-22] MEDS ORDERED: cloNIDine HCL 0.1 MG TAB PO SCH (23:34)
--- NOTE | 2019-08-22 23:46 | History & Physical Report ---
Date of Service August 22, 2019 Assessment & Plan (1) Diarrhea: Diarrhea/proctocolitis- May be secondary to chemotherapy/food ingestion/C. difficile/bacterial/viral. Send stool studies. Avoid Imodium. Placed on cholestyramine 4 g p.o. twice daily with meals. Full liquid diet. Hold furosemide Present on Admission?: Yes (2) Proctocolitis: See above Present on Admission?: Yes (3) Dehydration: Place on NSS plus KCl 20 mEq at 100 mils per hour Present on Admission?: Yes (4) Hypomagnesemia: Replacement with IV magnesium sulfate, and repeat in a.m. 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 Minor. Next chemotherapy is due in 2 days, which will likely be delayed due to current illness. Present on Admission?: Yes (9) Prostate cancer metastatic to bone: See above Present on Admission?: Yes (10) Dementia: Dementia/depression continue venlafaxine Present on Admission?: Yes (11) Depression: See above Present on Admission?: Yes History of Present Illness Chief Complaint: The patient presents to the emergency department with diarrhea for the past 2 weeks, without nausea, vomiting, abdominal pain or temperature. He did have transient lower pelvic pain. 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 He presents to the emergency department due to 2 weeks of persistent diarrhea, with generalized weakness, dehydration and fatigue. Laboratories in the emergency department were significant for hypomagnesemia, hypophosphatemia, hypoalbuminemia and low bicarbonate. CT scan of abdomen pelvis was significant for proctocolitis and increasing upper abdominal and retroperitoneal metastatic lymphadenopathy. Allergies Allergy/AdvReac Type Severity Reaction Status Date / Time diphtheria toxoid,fluid Allergy Intermediate SWELLING,BLISTERS,REDNESS,HIVES Verified 08/22/19 20:45 FROM ADACEL Pertussis Vaccines Allergy Intermediate SWELLING,HIVES,REDNESS,BLISTERS Verified 08/22/19 20:45 FROM ADACEL tetanus toxoid, adsorbed Allergy Intermediate SWELLING,BLISTERS,REDNESS,HIVES Verified 08/22/19 20:45 FROM ADACEL latex Allergy Unknown SHORTNESS Verified 08/22/19 20:45 OF BREATH lisinopril Allergy Unknown Unknown Verified 08/22/19 20:48 Home Medications Home Medications Medication Instructions Recorded Confirmed Type atorvastatin [Lipitor] 40 mg PO HS #0 tab 07/25/16 08/22/19 History tamsulosin [Flomax] 0.4 mg PO HS #0 07/25/16 08/22/19 History venlafaxine [Effexor XR] 150 mg PO DAILY #0 cap 07/25/16 08/22/19 History Vitamin D3 4,000 unit PO DAILY 30 Days #6 tab 10/03/17 08/22/19 History albuterol sulfate [Ventolin HFA] 1 puff INHALATION Q6H PRN #1 10/03/17 08/22/19 History inhaler furosemide [Lasix] 20 mg PO QAM #0 tab 10/03/17 08/22/19 History ondansetron HCl [Zofran] 4 mg PO TID PRN #0 tab 10/03/17 08/22/19 History Lupron Depot 3.75 mg IM MONTHLY #0 11/06/17 08/22/19 History cyanocobalamin (vitamin B-12) 1,000 mcg SUBCUT MONTHLY #0 11/26/17 08/22/19 History metoprolol succinate 50 mg PO QAM 07/10/19 08/22/19 History pantoprazole 40 mg PO QAM 07/10/19 08/22/19 History tolterodine 4 mg PO HS 07/10/19 08/22/19 History valsartan 320 mg PO DAILY 07/10/19 08/22/19 History clonidine HCl 0.1 mg tablet 0.1 mg PO .COMPLEX 07/27/19 08/22/19 History dexamethasone 4 mg PO .DAILY/UD 08/22/19 08/22/19 History diphenoxylate-atropine 1 tab PO QID PRN 08/22/19 08/22/19 History trospium 20 mg PO BID 08/22/19 08/22/19 History Past Med/Surg History Medical History Acute diastolic heart failure Anemia (Chronic ~01/2012) GI bleed Hypertension (Chronic 01/30/12) Hypokalemia Left ventricular diastolic dysfunction (Acute) Prostate CA (Acute) Stroke UTI (urinary tract infection) Surgical History No pertinent past surgical history Family History Other Family history non-contributory Social History Preferred Language: Ukrainian Communication Ability: Effective Control Clerk Repairs Required: No Beliefs That Will Affect Care: None marital status: Current Living Situation: Spouse Feels Safe at Home: Yes Smoking Status: Never smoker Hx Alcohol Use: No Hx Substance Use: No Review of Systems Review of Systems: The patient denies chest pain, palpitations, shortness of breath, dyspnea on exertion, cough, lower extremity swelling, sore throat, fevers, chills, sweats, nausea, vomiting, abdominal pain, blood in urine or stool, dysuria, urinary frequency or urgency, lightheadedness, dizziness, headache, memory loss, loss of consciousness, rash, abnormal bruising or bleeding, imbalance, focal weakness, numbness or tingling in arms or legs, or neck pain, or night sweats. The review of systems is otherwise negative other than for that already noted above, and at least 10 systems have been reviewed. Physical Exam Physical Exam: The patient is awake, alert and oriented 3, appears fatigued, normocephalic and atraumatic, lying in bed and in no acute distress. HEENT--PERRL, EOMI, mucous membranes and oropharynx very dry. Neck--supple. No JVD. No bruits. Thyroid normal, trachea midline, no adenopat hy. Heart--normal S1 and S2. No murmurs, rubs or gallops. Lungs--clear bilaterally, no respiratory distress, no accessory muscle use. Abdomen--normal bowel sounds and soft. Nontender. Nondistended. Extremities--no cyanosis or clubbing. No edema. There are good distal pulses b/l. Dermatologic--normal skin turgor, normal color, no abnormal lymph nodes, no rash. Neurologic--cranial nerves II through XII grossly intact. Rheumatologic--normal range of motion. Psychiatric--normal affect. Results & Data Vital Signs (Past 12 Hours) Vital Signs Temp Pulse Pulse Resp BP BP Pulse Ox 08/22/19 22:00 72 18 144/56 H 08/22/19 21:27 71 17 115/58 L 100 08/22/19 21:00 77 24 100 08/22/19 20:36 80 22 163/75 H 100 08/22/19 20:31 77 28 H 163/75 H 100 08/22/19 19:52 100 08/22/19 19:49 86 20 151/71 H 100 08/22/19 18:45 98.2 F 122 H 22 164/79 H 99 Laboratory Results Laboratory Results WBC 5.93 K/uL (4.8-10.8) 08/22/19 19:24 RBC 3.24 M/uL (4.7-6.1) L 08/22/19 19:24 Hgb 10.4 g/dL (14.0-18.0) L 08/22/19 19:24 Hct 29.5 % (42-52) L 08/22/19 19:24 MCV 91.0 fL (80-100) 08/22/19 19:24 MCH 32.1 pg (25-34) 08/22/19 19:24 MCHC 35.3 g/dL (32-36) 08/22/19 19:24 RDW Std Deviation 50.7 fL (36.4-46.3) H 08/22/19 19:24 RDW Coeff of Chasity 15.1 % (11.5-14.5) H 08/22/19 19:24 Plt Count 107 K/uL (130-400) L 08/22/19 19:24 MPV 8.3 fL (7.4-10.4) 08/22/19 19:24 Immature Gran % (Auto) 0.8 % 08/22/19 19:24 Neut % (Auto) 59.5 % 08/22/19 19:24 Lymph % (Auto) 23.9 % 08/22/19 19:24 Boyd % (Auto) 15.0 % 08/22/19 19:24 Eos % (Auto) 0.5 % 08/22/19 19:24 Baso % (Auto) 0.3 % 08/22/19 19:24 Immature Gran # (Auto) 0.05 K/uL (0.00-0.02) H 08/22/19 19:24 Neut # (Auto) 3.52 K/uL (1.4-6.5) 08/22/19 19:24 Lymph # (Auto) 1.42 K/uL (1.2-3.4) 08/22/19 19:24 Boyd # (Auto) 0.89 K/uL (0.11-0.59) H 08/22/19 19:24 Eos # (Auto) 0.03 K/uL (0-0.5) 08/22/19 19:24 Baso # (Auto) 0.02 K/uL (0-0.2) 08/22/19 19:24 Sodium 136 mmol/L (136-145) 08/22/19 19:24 Potassium 3.9 mmol/L (3.5-5.1) 08/22/19 19:24 Chloride 110 mmol/L (98-107) H 08/22/19 19:24 Carbon Dioxide 18 mmol/L (21-32) L 08/22/19 19:24 Anion Gap 8.0 (3-11) 08/22/19 19:24 BUN 25 mg/dl (7-18) H 08/22/19 19:24 Creatinine 1.07 mg/dl (0.6-1.4) 08/22/19 19:24 Est Cr Clr Drug Dosing 54.0 ml/min 08/22/19 19:24 Est GFR ( Amer) 73.0 08/22/19 19:24 Est GFR (Non-Af Amer) 63.0 08/22/19 19:24 BUN/Creatinine Ratio 23.1 (10-20) H 08/22/19 19:24 Glucose 87 mg/dl (70-99) 08/22/19 19:24 Calcium 9.0 mg/dl (8.5-10.1) 08/22/19 19:24 Phosphorus 2.0 mg/dl (2.5-4.9) L 08/22/19 19:24 Magnesium 1.3 mg/dl (1.8-2.4) L 08/22/19 19:24 Total Bilirubin 0.4 mg/dl (0.2-1) 08/22/19 19:24 Direct Bilirubin 0.1 mg/dl (0-0.2) 08/22/19 19:24 AST 26 U/L (15-37) 08/22/19 19:24 ALT 15 U/L (12-78) 08/22/19 19:24 Alkaline Phosphatase 69 U/L (45-117) 08/22/19 19:24 Total Protein 6.1 gm/dl (6.4-8.2) L 08/22/19 19:24 Albumin 2.8 gm/dl (3.4-5.0) L 08/22/19 19:24 Globulin 3.3 gm/dl (2.5-4.0) 08/22/19 19:24 Albumin/Globulin Ratio 0.8 (0.9-2) L 08/22/19 19:24 Lipase 35 U/L (73-393) L 08/22/19 19:24 Stl C. diff Tox B Gene Negative Cdiff Gene (Neg) 08/22/19 19:54 Diagnostic Findings [place], [place] [phone] CT Scan Report Patient: CASANDRA CASTILLO EAdmit Date: 08/22/19 MR#: [id number]: Kaitlyn GRIFFITH Acct ID:[id number]: [address] [facility] Zip: [place] [address] Age: 84Location: ED Sex: M Room/Bed: Att Phy:Diagnosis: DIARRHEA FOR 2 WEEKS Minerva Phy: Liliya Marcos CRNPService Date: 08/22/19 Fam Phy:Interpreting Phy: Musa Cuellar MD Admit Phy: Ordering Phy: Patrick Ayala M.D. cc: ~ CT SCAN OF THE ABDOMEN AND PELVIS WITH IV CONTRAST CLINICAL HISTORY: Metastatic prostate cancer. Diarrhea. COMPARISON STUDY: Abdominal CT dated 07/10/2019. PET/CT dated 07/27/2019. TECHNIQUE: Following the IV administration of 93 cc of Optiray 320, CT scan of the abdomen and pelvis is performed from the lung bases to the proximal femora. Images are reviewed in the axial, sagittal, and coronal planes. IV contrast was administered without complication. A dose lowering technique was utilized adhering to the principles of ALARA. CT DOSE: 1579.36 mGy.cm FINDINGS: Lung bases: Pacemaker leads are noted. There is evidence of previous bowel surgery. The heart is enlarged and without pericardial effusion. There is a trace right pleural effusion with bibasilar scarring/atelectasis. No airspace consolidation is seen typical for pneumonia. There are scattered calcified granulomas. A small hiatal hernia is noted. Liver: The contrast-enhanced liver is normal in size, contour, and attenuation. There is no intrahepatic biliary ductal dilatation. The hepatic veins and portal veins are patent. There are calcified hepatic granulomas. Gallbladder: Gallstones are identified with no CT evidence of acute cholecystitis. Spleen: Normal in size and attenuation. There are scattered calcified splenic granulomas. 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 Pancreas is moderately atrophic and otherwise grossly unremarkable. Adrenal glands: Unremarkable. Kidneys: The contrast enhanced kidneys demonstrate cortical atrophy and are without hydronephrosis. The kidneys enhance symmetrically. There are least 2 left renal cysts which measure up to 4.2 cm. Abdominal vasculature: The abdominal aorta is normal in course and caliber noting advanced atherosclerotic calcification. Bowel: There is no bowel obstruction. Mild wall thickening and hyperemia is suggested in the rectosigmoid region. There is no significant surrounding infiltration. Liquid stool is noted in the colon. The appendix is normal as visualized. Peritoneum: There is no intraperitoneal free air or abdominal ascites. Lymphadenopathy: There is bulky upper abdominal and retroperitoneal lymphadenopathy. Upper abdominal lymphadenopathy has progressed from 07/27/2019. A portacaval node on image #128 measures 4.5 x 3.1 cm (previously measuring 3.1 x 2.1 cm). Retroperitoneal lymphadenopathy has also modestly increased from previous. The largest node is seen in the aortocaval region on image #145 and measures 5.8 x 2.8 cm (previously measuring 5.5 x 2.7 cm). A left periaortic node on image #195 measures 2.4 cm (previously measuring 2.0 cm). Pelvic viscera: The prostate gland is diminutive and heterogeneous. The bladder is normal as imaged. Postoperative change is noted in the left groin. Skeletal structures: The skeletal structures are osteopenic. There is advanced lumbosacral spondylosis. Scattered osteoblastic metastatic lesions are similar to previous. Lesions are seen within the bodies of T11 and L5. Lesion is also seen in the left ilium.. Postoperative change is noted in the right proximal femur. IMPRESSION: 1. There is mild wall thickening and hyperemia suggested in the rectosigmoid region, with liquid stool seen throughout the colon. Correlate clinically for evidence of a diarrheal illness/mild proctocolitis. 2. There has been overall modest progression of upper abdominal and retroperitoneal metastatic lymphadenopathy as compared to 07/27/2019. 3. 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 4. Cardiomegaly and trace right pleural effusion. 5. Cholelithiasis. 6. Additional findings as above. ACT 112: Negative or not required by law. Electronically signed by: Musa Cuellar M.D. 08/22/2019 8:47 PM Dictated: 08/22/192033 Transcribed: 08/22/192033 Code Status & VTE Plan Code Status Full code VTE Prophylaxis Plan VTE Prophylaxis will be ordered: Yes PG Care Time/CCT Total # of Minutes Spent Total Time Spent with Patient: Total time spent is greater than 50% in coordination of care (as documented) at patient's floor/unit and/or counseling patient: Coding Level of Care Code 63252 Initial Inpt Care Lvl 3 Diagnoses Diarrhea R19.7 Proctocolitis K52.9 Dehydration E86.0 Hypomagnesemia E83.42 Hypophosphatemia E83.39 GERD (gastroesophageal reflux disease) K21.9 Esophagitis presence: esophagitis presence not specified Hyperlipidemia E78.5 Hyperlipidemia type: unspecified 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
[2019-08-23] MEDS: TROSPIUM~ORDER AWAITING ACTION SCH ×2 (00:20→09:21)
[2019-08-23] MEDS: MAGNESIUM SULFATE / D5W 1 GM/100 ML BAG IV SCH ×3 (01:05→02:05)
[2019-08-23 07:37] VITALS: BP 170/73; PULSE 72; TEMP 97.9
[2019-08-23] MEDS ORDERED: cloNIDine HCL 0.1 MG TAB PO SCH (09:00)
[2019-08-23] MEDS ORDERED: VENLAFAXINE HCL XR 150 MG CAPXR PO SCH (09:00)
[2019-08-23] MEDS ORDERED: METOPROLOL SUCC 50MG EXT REL TAB PO SCH (09:00)
[2019-08-23] MEDS ORDERED: PANTOprazole 40 MG TAB PO SCH (09:00)
[2019-08-23] MEDS ORDERED: VALSARTAN 80 MG TAB PO SCH (09:00)
[2019-08-23] MEDS ORDERED: CHOLECALCIFEROL 1,000 UNITS 25 MCG TAB PO SCH (09:00)
[2019-08-23 09:01] LABS: Magnesium 2.5 mg/dl (1.8-2.4); Phosphorus 3.2 mg/dl (2.5-4.9)
[2019-08-23] MEDS: NSS + 20MEQ KCL 20 MEQ/1,000 ML BAG IV SCH ×2 (09:23)
[2019-08-23 10:08] LABS: Hematocrit (blood only) 27.3 % (42-52); Hemoglobin 9.5 g/dL (14.0-18.0); Mean Corpuscular Hgb Conc 34.8 g/dL (32-36); Mean Corpuscular Volume 91.9 fL (80-100); RDW Coefficient of Variation 15.2 % (11.5-14.5); RDW Standard Deviation 50.6 fL (36.4-46.3); Red Blood Count 2.97 M/uL (4.7-6.1); White Blood Count 4.43 K/uL (4.8-10.8)
[2019-08-23 10:37] LABS: Mean Platelet Volume 8.4 fL (7.4-10.4); Platelet Count 87 K/uL (130-400)
[2019-08-23 10:39] LABS: BUN Creatinine Ratio 20.3 (10-20); Calcium 8.1 mg/dl (8.5-10.1); Creatinine Clr Calc Pharmacy 62.9 ml/min; Est GFR (African American) 88.8; Est GFR (Non-African American) 76.6; Potassium 3.7 mmol/L (3.5-5.1)
[2019-08-23] MEDS ORDERED: dexAMETHasone 4 MG TAB PO SCH (11:00)
--- NOTE | 2019-08-23 13:25 | Discharge Summary ---
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 He presents to the emergency department due to 2 weeks of persistent diarrhea, with generalized weakness, dehydration and fatigue. Laboratories in the emergency department were significant for hypomagnesemia, hypophosphatemia, hypoalbuminemia and low bicarbonate. CT scan of abdomen pelvis was significant for proctocolitis and increasing upper abdominal and retroperitoneal metastatic lymphadenopathy. Admission Exam Per Admitting Provider The patient is awake, alert and oriented 3, appears fatigued, normocephalic and atraumatic, lying in bed and in no acute distress. HEENT--PERRL, EOMI, mucous membranes and oropharynx very dry. Neck--supple. No JVD. No bruits. Thyroid normal, trachea midline, no adenopathy. Heart--normal S1 and S2. No murmurs, rubs or gallops. Lungs--clear bilaterally, no respiratory distress, no accessory muscle use. Abdomen--normal bowel sounds and soft. Nontender. Nondistended. Extremities--no cyanosis or clubbing. No edema. There are good distal pulses b/l. Dermatologic--normal skin turgor, normal color, no abnormal lymph nodes, no rash. Neurologic--cranial nerves II through XII grossly intact. Rheumatologic--normal range of motion. Psychiatric--normal affect. Principal Diagnosis Diarrhea Discharge Exam General: Resting comfortably HEENT: NC/AT; PERRLA with EOMI; [place] conjunctiva, MMM. No erythema of posterior pharynx Neck: Supple and nontender Cardiac: RRR Lungs: CTA bilaterally Abdomen: Bowel normoactive X 4; Nontender to palpation Extremities: Warm. No edema present Neuro: No focal weakness Skin: No rash Discharge Data Allergies Allergy/AdvReac Type Severity Reaction Status Date / Time diphtheria toxoid,fluid Allergy Intermediate SWELLING,BLISTERS,REDNESS,HIVES Verified 08/22/19 20:45 FROM ADACEL Pertussis Vaccines Allergy Intermediate SWELLING,HIVES,REDNESS,BLISTERS Verified 08/22/19 20:45 FROM ADACEL tetanus toxoid, adsorbed Allergy Intermediate SWELLING,BLISTERS,REDNESS,HIVES Verified 08/22/19 20:45 FROM ADACEL latex Allergy Unknown SHORTNESS Verified 08/22/19 20:45 OF BREATH lisinopril Allergy Unknown Unknown Verified 08/22/19 20:48 Consultations 08/22/19 20:44 ED Decision to Admit Stat 08/22/19 23:34 Consult Case Management - Discharge Planning Routine Ordered Studies 08/22/19 19:07 CT abd pelvis IV con only Stat Hospital Course (1) Diarrhea: Presented with diarrhea/proctocolitis related to chemotherapy vs gastroenteritis vs. bacterial infection. C diff negative; stool cultures are pending (neg prelim) Associated non anion gap metabolic acidosis in setting of diarrhea -- responded well to IV fluids. Diarrhea resolved by time of discharge, tolerating low residue diet. Recommend to hold Lasix at home. Will f/u with oncology tomorrow to discuss further chemotherapy/toxic effects. (2) Proctocolitis: As noted above. (3) Dehydration: Responded well to IV fluids at 100 cc/hr. (4) Hypomagnesemia: Replaced as needed. (5) Hypophosphatemia: Replaced as needed. (6) GERD (gastroesophageal reflux disease): PPI daily. (7) Hyperlipidemia: Atorvastatin 40 mg at bedtime. 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 Has had progression of disease noted on CT imaging along with rising PSA level. Chemotherapy was scheduled for tomorrow -- will hold for now and f/u with Dr. Blakely in clinic to discuss goals of care tomorrow. Did discuss discharge planning with his -- she is aware that the disease has progressed in setting of chemotherapy and treatment options are likely limited. (9) Prostate cancer metastatic to bone: As noted above. (10) Dementia: Dementia/depression. Evaluated by Dr. Raza. (11) Depression: Continued Effexor as prescribed. Discharged to home on 08/23/19. Total Time Total Time Spent Total Time Spent (In Minutes): >30 minutes Total Time Includes: Examination of the Patient, Discharge Planning, Medication Reconciliation, Communication With Other Providers and Other Discharge Plan Discharge Items Patient Disposition: Home - Self-Care Reason For Visit: DIARRHEA, HYPOMAGNESEMIA, PROTOCOLITIS Discharge Diagnosis: Diarrhea Condition on Discharge: Fair Goals: You have been hospitalized for an acute medical problem. During your stay at [facility], we have made an effort to correct the problem that brought you to the hospital while keeping you as comfortable as possible. Medications were used to bring your condition under control and your discharge instructions will include directions for any medications you should take after leaving the hospital. Please make sure you see your Primary Care Provider as part of your follow up plan. Activity: As commented below Exercise/Sports: Wait until after follow-up appointment Non-emergency contact: Primary Care Provider and Oncologist Call non-emergency contact if: you have any medication questions, your symptoms worsen and you have a fever Follow-up/Referrals: Liliya Marcos CRNP [Primary Care Provider] - Diet: Full liquid Diet Comment: Advance diet as tolerated at home. Addtl Attending Provider Instructions: 1. Diarrhea * Please hold home Lasix due to diarrhea/dehydration. * Please take Lomotil 1 tablet every 4-6 hours as needed for diarrhea. * Please drink plenty of fluids -- at least 10 glasses of water per day. * You will need to follow up with Dr. Blakely as scheduled tomorrow morning to discuss further treatment options. Pending Studies at Discharge: Yes Studies:: Stool cultures pending. Stand-Alone Forms: My [facility] Medications and DC Order Prescriptions: Continued atorvastatin [Lipitor] 40 mg Tablet 40 mg PO HS Qty: 0 RF: 0 venlafaxine [Effexor XR] 150 mg Capsule,Extended Release 24hr 150 mg PO DAILY Qty: 0 RF: 0 tamsulosin [Flomax] 0.4 mg Capsule 0.4 mg PO HS Qty: 0 RF: 0 ondansetron HCl [Zofran] 4 mg Tablet 4 mg PO TID PRN (Reason: Nausea) Qty: 0 RF: 0 Vitamin D3 4,000 unit Capsule 4,000 unit PO DAILY 30 Days Qty: 6 RF: 5 albuterol sulfate [Ventolin HFA] 90 mcg/actuation Hfa Aerosol Inhaler 1 puff INHALATION Q6H PRN (Reason: Shortness Of Breath) Qty: 1 RF: 0 Lupron Depot 3.75 mg Syringe Kit 3.75 mg IM MONTHLY Qty: 0 RF: 0 cyanocobalamin (vitamin B-12) 1,000 mcg/mL Solution 1,000 mcg SUBCUT MONTHLY Qty: 0 RF: 0 metoprolol succinate 50 mg tablet extended release 24 hr 50 mg PO QAM RF: 0 tolterodine 4 mg capsule,extended release 24hr 4 mg PO HS RF: 0 pantoprazole 40 mg tablet,delayed release (DR/EC) 40 mg PO QAM RF: 0 valsartan 320 mg tablet 320 mg PO DAILY RF: 0 clonidine HCl 0.1 mg tablet 0.1 mg PO .COMPLEX RF: 0 trospium 20 mg tablet 20 mg PO BID RF: 0 diphenoxylate-atropine 2.5-0.025 mg Tablet 1 tab PO QID PRN (Reason: Diarrhea) RF: 0 Discontinued furosemide [Lasix] 20 mg Tablet 20 mg PO QAM Qty: 0 RF: 0 dexamethasone 4 mg tablet 4 mg PO .DAILY/UD RF: 0 Discharge Orders: Discharge Order (Routine); Ordered 08/23/19 Ordered By: Purnima Root Admission Data Admit Date/Time: 08/22/19 22:04 Attending Provider: Chandana Ashton Admit Provider: Rogers Carlos Primary Care Provider: Liliya Marcos Other Providers: Rogers Carlos Other Interventions: Discharge Summary Assessment (RN) Last Done: 08/23/19 15:03 DC Date/Time DO NOT enter until pt leaves facility: 08/23/19 15:54 Supervising Physician Co-Signing Physician Notes Attending note: patient seen and examined with Purnima Root PA-C. I agree with her discharge summary. I personally reviewed the labs and imaging f indings. patient feeling much better, no longer has diarrhea C diff was negative tolerating full liquids, advanced to low residue diet, tolerated well no abdominal pain - Diarrhea: most likely side effect of chemo resolved, d/c home on regular diet follow up tomorrow with Dr. 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
[2019-08-23] MEDS ORDERED: TAMSULOSIN HCL 0.4 MG CAP PO SCH (21:00)
[2019-08-23] MEDS ORDERED: ATORVASTATIN 40 MG TAB PO SCH (21:00)
[2019-08-23] MEDS ORDERED: TOLTERODINE TARTRATE LA 4 MG CAPCR PO SCH (21:00)
== END 2019-08-23 15:54 | disposition home or self-care (01) ==
LOC: ED 18:32 → INTOOBSV 22:04 → 2N 22:04 → SUATTDRO 22:04 → 2N 23:24